=== PATIENT | female | born 1970 | race Caucasian/White ===

== ENCOUNTER 2017-11-16 14:44 | Observation (INO) | payer SELFPAY ==
[~2017-11-16] VITALS: Ht 157.5 cm; Wt 92.7 kg
--- NOTE | 2017-11-16 15:01 | ED Chest Pain ---
General Chief Complaint: Chest Pain Stated Complaint: CHEST PAIN Source: patient, EMS Exam Limitations: no limitations History of Present Illness Date Seen by Provider: Nov 16, 2017 Time Seen by Provider: 15:00 Initial Comments To ER per EMS from [facility] with reports of chest pain. This began at 1 PM while at rest. She did have associated sweating and pain on the left arm. She has no known personal history of heart disease. She does smoke 1 pack of cigarettes per day. She is not diabetic. She states that her father had a heart attack in his early 30s and her sister had one in her early 40s. She was given 324 mg of aspirin at the [facility]. Her initial pain was 5 out of 10 which was taken down to a 0 after the administration of one nitroglycerin. At this time she is pain-free. Timing/Duration: 1-3 hours Severity/Quality: moderate Radiation: arms Activities at Onset: none Prior CP/Workup: no prior chest pain ASA po PULP DRIER: Yes NTG SL PULP DRIER: Yes Associated Symptoms: No nausea/vomiting Allergies and Home Medications Allergies Coded Allergies: No Known Drug Allergies (Unverified , 11/16/17) Patient Home Medication List Home Medication List Reviewed: Yes Review of Systems Review of Systems Constitutional: see HPI EENTM: No Symptoms Reported Respiratory: No Symptoms Reported; Denies Shortness of Air, Denies SOA With Exertion, Denies SOA at Rest Cardiovascular: See HPI, Chest Pain Gastrointestinal: No Symptoms Reported Genitourinary: No Symptoms Reported Musculoskeletal: no symptoms reported Skin: no symptoms reported Psychiatric/Neurological: No Symptoms Reported Endocrine: No Symptoms Reported Physical Exam Vital Signs Vital Signs - First Documented 11/16/17 14:46 Temp 98.9 Pulse 82 Resp 18 B/P (MAP) 134/72 (92) Pulse Ox 98 O2 Delivery Room Air Capillary Refill : Height, Weight, BMI Height: '" Weight: lbs. oz. kg; BMI Method: General Appearance: No Apparent Distress, WD/WN HEENT: PERRL/EOMI, TMs Normal Neck: Full Range of Motion, Normal Inspection Respiratory: Lungs Clear, Normal Breath Sounds, No Accessory Muscle Use, No Respiratory Distress Cardiovascular: Regular Rate, Rhythm, No Murmur, Normal Peripheral Pulses Gastrointestinal: Non Tender, Soft Extremity: Normal Capillary Refill, Normal Inspection Neurologic/Psychiatric: Alert, Oriented x3 Skin: Normal Color, Warm/Dry Progress/Results/Core Measures Results/Orders Lab Results Laboratory Tests Test 11/16/17 14:56 Range/Units White Blood Count 7.1 4.3-11.0 10^3/uL Red Blood Count 4.45 4.35-5.85 10^6/uL Hemoglobin 12.0 11.5-16.0 G/DL Hematocrit 37 35-52 % Mean Corpuscular Volume 83 80-99 FL Mean Corpuscular Hemoglobin 27 25-34 PG Mean Corpuscular Hemoglobin Concent 33 32-36 G/DL Red Cell Distribution Width 16.9 H 10.0-14.5 % Platelet Count 313 130-400 10^3/uL Mean Platelet Volume 10.0 7.4-10.4 FL Neutrophils (%) (Auto) 63 42-75 % Lymphocytes (%) (Auto) 25 12-44 % Monocytes (%) (Auto) 9 0-12 % Eosinophils (%) (Auto) 3 0-10 % Basophils (%) (Auto) 0 0-10 % Neutrophils # (Auto) 4.5 1.8-7.8 X 10^3 Lymphocytes # (Auto) 1.8 1.0-4.0 X 10^3 Monocytes # (Auto) 0.6 0.0-1.0 X 10^3 Eosinophils # (Auto) 0.2 0.0-0.3 10^3/uL Basophils # (Auto) 0.0 0.0-0.1 10^3/uL My Orders Orders - LANG BELCHER APRN Cbc With Automated Diff (11/16/17 14:54) Magnesium (11/16/17 14:54) Chest 1 View, Ap/Pa Only (11/16/17 14:54) Ekg Tracing (11/16/17 14:54) Cardiac Profile 1 (11/16/17 14:54) Comprehensive Metabolic Panel (11/16/17 14:54) Myoglobin Serum (11/16/17 14:54) Protime With Inr (11/16/17 14:54) Partial Thromboplastin Time (11/16/17 14:54) O2 (11/16/17 14:54) Monitor-Rhythm Ecg Trace Only (11/16/17 14:54) Lipid Panel (11/17/17 06:00) Saline Lock/Iv-Start (11/16/17 14:54) Lipase (11/16/17 14:54) BNP (11/16/17 14:54) Fibrin Degradation Products (11/16/17 14:54) Vital Signs/I&O 11/16/17 14:46 Temp 98.9 Pulse 82 Resp 18 B/P (MAP) 134/72 (92) Pulse Ox 98 O2 Delivery Room Air Diagnostic Imaging Diagonstic Imaging: Xray Plain Films/CT/US/NM/MRI: chest Comments NAME: [facility] REC#: [id number] PT STATUS: REG ER : 1970 PHYSICIAN: LANG BELCHER APRN ADMIT DATE: 11/16/17/ER Draft Date of Exam:11/16/17 CHEST 1 VIEW, AP/PA ONLY INDICATION: Chest pain. Portable chest 3:05 p.m. Heart size and pulmonary vascularity are normal. Lungs are clear. There are no effusions or pneumothoraces. IMPRESSION: Negative chest. Dictated on workstation # [id number] Dict: 11/16/17 1525 Trans: 11/16/17 1532 [facility] [id number] Interpreted by: PARRISH PEREZ MD Electronically signed by: Departure Impression Primary Impression: Chest pain Disposition: ADMITTED INPATIENT Condition: Stable Admissions Decision to Admit Reason: Admit from ER (General) Decision to Admit/Date: Nov 16, 2017 Time/Decision to Admit Time: 15:01 Departure-Patient Inst. Referrals: UNKNOWN (PCP) Primary Care Physician LANG BELCHER APRN Nov 16, 2017 15:01
[2017-11-16 15:23] LABS: BASOPHILS % (AUTO) 0 % (0-10); EOSINOPHILS # (AUTO) 0.2 10^3/uL (0.0-0.3); EOSINOPHILS % (AUTO) 3 % (0-10); HEMATOCRIT 37 % (35-52); LYMPHOCYTES # (AUTO) 1.8 X 10^3 (1.0-4.0); LYMPHOCYTES % (AUTO) 25 % (12-44); MEAN CORPUSCULAR HEMOGLOBIN 27 PG (25-34); MEAN CORPUSCULAR HGB CONC 33 G/DL (32-36); MEAN CORPUSCULAR VOLUME 83 FL (80-99); MONOCYTES # (AUTO) 0.6 X 10^3 (0.0-1.0); MONOCYTES % (AUTO) 9 % (0-12); NEUTROPHILS # (AUTO) 4.5 X 10^3 (1.8-7.8); NEUTROPHILS % (AUTO) 63 % (42-75); PLATELET COUNT 313 10^3/uL (130-400); RED BLOOD COUNT 4.45 10^6/uL (4.35-5.85); RED CELL DISTRIBUTION WIDTH 16.9 % (10.0-14.5); WHITE BLOOD COUNT 7.1 10^3/uL (4.3-11.0)
--- NOTE | 2017-11-16 15:33 | Diagnostic Imaging Report ---
INDICATION: Chest pain. Portable chest 3:05 p.m. Heart size and pulmonary vascularity are normal. Lungs are clear. There are no effusions or pneumothoraces. IMPRESSION: Negative chest. Dictated by: Dictated on workstation # [id number]
[2017-11-16 15:42] LABS: INR 0.9 (0.8-1.4); PROTHROMBIN TIME PATIENT 12.2 SEC (12.2-14.7)
[2017-11-16 15:47] LABS: ALANINE AMINOTRANSFERASE 20 U/L (0-55); ALBUMIN 4.3 GM/DL (3.2-4.5); ALKALINE PHOSPHATASE 92 U/L (40-136); BILIRUBIN,TOTAL 0.2 MG/DL (0.1-1.0); BUN/CREATININE RATIO 10; CALCIUM 9.6 MG/DL (8.5-10.1); CARBON DIOXIDE 24 MMOL/L (21-32); CHLORIDE 106 MMOL/L (98-107); CREATININE SERUM 0.78 MG/DL (0.60-1.30); GFR ESTIMATED > 60; GLUCOSE 102 MG/DL (70-105); LIPASE 31 U/L (8-78); MAGNESIUM 2.2 MG/DL (1.8-2.4); POTASSIUM 3.8 MMOL/L (3.6-5.0); SODIUM 139 MMOL/L (135-145); TOTAL PROTEIN 7.4 GM/DL (6.4-8.2)
[2017-11-16 15:57] LABS: MYOGLOBIN SERUM 23.1 NG/ML (10.0-92.0)
[2017-11-16 17:14] VITALS: BP 119/70
[2017-11-16] MEDS ORDERED: NITROGLYCERIN 0.4 MG SL TABS BTL 25'S SL PRN (17:30)
--- NOTE | 2017-11-16 17:37 | History & Physical-Hospitalist ---
DORYS BELCHER MEDICAL STUDENT 11/16/17 1736: History of Present Illness HPI/Chief Complaint Chest pain Source: patient Exam Limitations: no limitations Date Seen 11/16/17 Time Seen by Provider: 16:45 Attending Physician Dary Bailey DO [facility] Referring Physician Date of Admission Nov 16, 2017 at 15:39 Home Medications & Allergies Home Medications Reviewed patient Home Medication Reconciliation performed by pharmacy medication reconciliations registered pharmacy technician and/or nursing. Patients Allergies have been reviewed. 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) Alcohol Use: Past History (Last drink in September) Recreational Drug Use: No Smoking Status: Current Everyday Smoker Type Used: Cigarettes (27 py history) Recent Foreign Travel: No Contact w/other who traveled: No Recent Hopitalizations: No Recent Infectious Disease Expo: No Immunizations Up To Date Tetanus Booster (TDap): Unknown Pediatric: Yes Seasonal Allergies Seasonal Allergies: No Past Medical History Surgeries: Section Cardiac: High Cholesterol Psychosocial: Anxiety History of Blood Disorders: No Family History CAD Under 55 Years Old (Sister of [place] at) Sister of [place] at 34 Physical Exam Physical Exam Vital Signs Vital Signs - First Documented 11/16/17 14:46 Temp 98.9 Pulse 82 Resp 18 B/P (MAP) 134/72 (92) Pulse Ox 98 O2 Delivery Room Air Capillary Refill : Less Than 3 Seconds Height, Weight, BMI Height: 5'7.00" Weight: 200lbs. oz. 90.808431rt; BMI Method:Stated Results Results/Procedures Labs Laboratory Tests 11/16/17 14:56 Patient resulted labs reviewed. Clinical Quality Measures AMI/AHF: ASA po Prior to arrival: Yes DARY BAILEY DO 11/17/17 1142: DORYS BELCHER MEDICAL STUDENT Nov 16, 2017 17:36 DARY BAILEY DO Nov 17, 2017 11:42
--- NOTE | 2017-11-16 17:47 | Short Stay Summary-Hospitalist ---
DORYS BELCHER MEDICAL STUDENT 11/16/17 1747: History of Present Illness HPI/Chief Complaint CC: Chest pain HPI: 46 year old female with history of smoking, hyperlipidemia, and strong cardiac family history presented via EMS from [facility] following one hour of chest pain. This began while she was sitting down. She felt chest tightness that radiated down left flank and left arm as well, which felt tingly and weak. She rated the pain as a 5/10. Never had any pain like this before. The pain was associated with nausea and diaphoresis. At [facility], she was given ASA 325 and one nitroglycerin, which almost immediately resolved the pain. Pts sister at 34 of DC and father had DC in 40s. After her sister passed in 1999, she had and echo that she reports was normal. Source: patient Exam Limitations: no limitations Date Seen 11/16/17 Time Seen by Provider: 16:45 Attending Physician Dary Bailey DO [facility] Referring Physician Date of Admission Nov 16, 2017 at 15:39 Home Medications & Allergies Home Medications Reviewed patient Home Medication Reconciliation performed by pharmacy medication reconciliations dentures lab technician and/or nursing. Patients Allergies have been reviewed. 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) Alcohol Use: Past History (Last drink in September) Recreational Drug Use: No Smoking Status: Current Everyday Smoker Type Used: Cigarettes (27 py history) Recent Foreign Travel: No Contact w/other who traveled: No Recent Hopitalizations: Yes (June 2017 was intubated for alcohol intoxication) Recent Infectious Disease Expo: No Immunizations Up To Date Tetanus Booster (TDap): Unknown Pediatric: Yes Seasonal Allergies Seasonal Allergies: No Past Medical History Surgeries: Section Cardiac: High Cholesterol Psychosocial: Anxiety History of Blood Disorders: No Family History CAD Under 55 Years Old (Sister of [place] at 34, Father had DC in 40s), CVA (2 x in Mother) Sister of [place] at 34 Review of Systems Constitutional: No chills; diaphoresis; No fever; weight gain EENTM: nose congestion; No throat pain Respiratory: cough (chronic ), dyspnea on exertion (chest pain after walking) Cardiovascular: chest pain, edema Gastrointestinal: No abdominal pain, No constipation; diarrhea, nausea Genitourinary: No dysuria; frequency Physical Exam Physical Exam Vital Signs Vital Signs - First Documented 11/16/17 14:46 Temp 98.9 Pulse 82 Resp 18 B/P (MAP) 134/72 (92) Pulse Ox 98 O2 Delivery Room Air Capillary Refill : Less Than 3 Seconds Height, Weight, BMI Height: 5'7.00" Weight: 200lbs. oz. 90.219186wd; BMI Method:Stated General Appearance: No Apparent Distress, WD/WN HEENT: Pharynx Normal, Moist Mucous Membranes Neck: Normal Inspection, Non Tender; No Lymphadenopathy (L), No Lymphadenopathy (R) Respiratory: Chest Non Tender, Lungs Clear, Normal Breath Sounds, No Accessory Muscle Use, No Respiratory Distress Cardiovascular: Regular Rate, Rhythm, No Edema, No Gallop, No Murmur, Normal Peripheral Pulses Gastrointestinal: Normal Bowel Sounds, Non Tender, Soft Extremity: No Pedal Edema Neurologic/Psychiatric: Alert, Oriented x3 Skin: Normal Color, Warm/Dry Results Results/Procedures Labs Laboratory Tests 11/16/17 14:56 Patient resulted labs reviewed. Short Stay Diagnosis Discharge Diagnosis-Short Stay Admission Diagnosis Angina Final Discharge Diagnosis Angina Conclusion Plan 46 year old female with a history of hyperlipidemia, smoking, and strong family history admitted for evaluation of angina. Angina -ASA 325 mg and 1 tab nitroglycerin at clinic -EKG and troponins negative -Stress test to be performed tomorrow -Will consider resuming a statin pending lipid panel Dispo: Likely to discharge tomorrow after stress test to follow up outpatient. Diagnosis/Problems Diagnosis/Problems (1) Smoking history Status: Chronic (2) Mixed hyperlipidemia Status: Chronic (3) Chest pain Status: Acute Clinical Quality Measures AMI/AHF: ASA po Prior to arrival: Yes DARY BAILEY DO 11/17/17 1144: History of Present Illness HPI/Chief Complaint Patient just came back from [facility] and will await results. 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) Smoking Status: Current Everyday Smoker Type Used: Cigarettes (27 py history) Past Medical History Surgeries: Section Cardiac: High Cholesterol Psychosocial: Anxiety Family History CAD Under 55 Years Old (Sister of [place] at 34, Father had DC in 40s), CVA (2 x in Mother) Review of Systems Constitutional: see HPI EENTM: no symptoms reported Respiratory: no symptoms reported Cardiovascular: chest pain Gastrointestinal: no symptoms reported Genitourinary: no symptoms reported Musculoskeletal: no symptoms reported Skin: no symptoms reported Psychiatric/Neurological: No Symptoms Reported All Other Systems Reviewed Negative Unless Noted: Yes Physical Exam Physical Exam General Appearance: No Apparent Distress, WD/WN Eyes: Bilateral Eye Normal Inspection, Bilateral Eye PERRL HEENT: PERRL/EOMI, TMs Normal, Normal ENT Inspection, Pharynx Normal Neck: Full Range of Motion, Normal Inspection, Non Tender, Supple, Carotid Bruit Respiratory: Chest Non Tender, Lungs Clear, Normal Breath Sounds, No Accessory Muscle Use, No Respiratory Distress Cardiovascular: Regular Rate, Rhythm, No Edema, No Gallop, No JVD, No Murmur, Normal Peripheral Pulses Gastrointestinal: Normal Bowel Sounds, No Organomegaly, No Pulsatile Mass, Non Tender, Soft Back: Normal Inspection, No CVA Tenderness, No Vertebral Tenderness Extremity: Normal Capillary Refill, Normal Inspection, Normal Range of Motion, Non Tender, No Calf Tenderness, No Pedal Edema Neurologic/Psychiatric: Alert, Oriented x3, No Motor/Sensory Deficits, Normal Mood/Affect Skin: Normal Color, Warm/Dry Lymphatic: No Adenopathy Short Stay Diagnosis Discharge Diagnosis-Short Stay Admission Diagnosis Chest pain HLP Final Discharge Diagnosis Chest pain HLP Conclusion Plan Await EST results Diagnosis/Problems Diagnosis/Problems (1) Chest pain Status: Acute (2) Smoking history Status: Chronic (3) Mixed hyperlipidemia Status: Chronic DORYS BELCHER MEDICAL STUDENT Nov 16, 2017 17:47 DARY BAILEY DO Nov 17, 2017 11:44
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
[2017-11-16] MEDS: ASPIRIN 81 MG CHEW (CHILDREN'S ASA) PO SCH (18:24)
[2017-11-16] MEDS ORDERED: FLU QUADRIvalent (5+ YOA) 2018-2019 (AFLURIA) 0.5 ML IM ONE (19:00)
[2017-11-16 19:49] VITALS: BP 106/58
[2017-11-16] MEDS: NICOTINE 21 MG (NICODERM) PATCH TD SCH (20:00)
[2017-11-17] VITALS: BP 101/56
[2017-11-17 03:47] LABS: CHOLESTEROL 485 MG/DL (< 200); HDL CHOLESTEROL 47 MG/DL (40-60); TRIGLYCERIDES 162 MG/DL (<150); VLDL CHOLESTEROL 32 MG/DL (5-40)
[2017-11-17 04:00] VITALS: BP 104/56
[2017-11-17] MEDS: ASPIRIN 81 MG CHEW (CHILDREN'S ASA) PO SCH (07:51)
[2017-11-17 08:00] VITALS: BP 92/46
[2017-11-17] MEDS: NICOTINE 21 MG (NICODERM) PATCH TD SCH (08:15)
--- NOTE | 2017-11-17 08:46 | Progress Note-Hospitalist ---
DORYS BELCHER MEDICAL STUDENT 11/17/17 0846: Subjective HPI/CC On Admission Date Seen by Provider: Nov 17, 2017 Time Seen by Provider: 08:00 CC: Chest pain HPI: 46 year old female with history of smoking, hyperlipidemia, and strong cardiac family history presented via EMS from [facility] following one hour of chest pain. This began while she was sitting down. She felt chest tightness that radiated down left flank and left arm as well, which felt tingly and weak. She rated the pain as a 5/10. Never had any pain like this before. The pain was associated with nausea and diaphoresis. At [facility], she was given ASA 325 and one nitroglycerin, which almost immediately resolved the pain. Pts sister at 34 of KS and father had KS in 40s. After her sister passed in 1999, she had and echo that she reports was normal. Subjective/Events-last exam Pt had no acute events overnight. She did not sleep well. She has had no more chest pain. She is having regular BMs and urinating without difficulty. Pt aware of plan for stress test. Focused Exam Respiratory: Lungs Clear, Normal Breath Sounds, No Accessory Muscle Use, No Respiratory Distress Cardiovascular: Regular Rate, Rhythm, No Edema, No Murmur Skin: normal color, warm/dry Objective Exam Vital Signs Vital Signs Date Time Temp Pulse Resp B/P (MAP) Pulse Ox O2 Delivery O2 Flow Rate FiO2 11/17/17 07:00 70 11/17/17 04:00 97.3 20 104/56 (72) 96 Room Air Capillary Refill : Less Than 3 Seconds General Appearance: No Apparent Distress, WD/WN Results/Procedures Lab Laboratory Tests 11/16/17 14:56 Patient resulted labs reviewed. Assessment/Plan Assessment and Plan Assess & Plan/Chief Complaint 46 year old female with a history of hyperlipidemia, smoking, and strong family history admitted for evaluation of angina. Angina -ASA 325 mg and 1 tab nitroglycerin at clinic with resolution of pain -EKG with Q waves in inferior leads and troponins negative -Stress test to be performed this morning. -LDL of 417 and total of 487. Will discuss high intensity statin and Ezetimibe. Dispo: Likely to discharge today after stress test to follow up outpatient. Diagnosis/Problems Diagnosis/Problems (1) Smoking history Status: Chronic (2) Mixed hyperlipidemia Status: Chronic (3) Chest pain Status: Acute Clinical Quality Measures AMI/AHF: ASA po Prior to arrival: Yes DVT/VTE Risk/Contraindication: Risk Factor Score Per Nursin RFS Level Per Nursing on Admit: 1=Low/No VTE PPX ESPINOZA CHUNG DO 11/18/17 0815: Subjective Subjective/Events-last exam EST pending at time of my interview and exam Severe HLP and + FH requires risk stratification Objective Exam General Appearance: No Apparent Distress, WD/WN Respiratory: Chest Non Tender, Lungs Clear, Normal Breath Sounds, No Accessory Muscle Use, No Respiratory Distress Cardiovascular: Regular Rate, Rhythm, No Edema, No Gallop, No JVD, No Murmur, Normal Peripheral Pulses DORYS BELCHER MEDICAL STUDENT Nov 17, 2017 08:46 ESPINOZA CHUNG DO Nov 18, 2017 08:15
[2017-11-17] MEDS ORDERED: REGADENOSON 0.4 MG/5 ML SYR (LEXISCAN) IV ONE ×2 (09:00→10:24)
[2017-11-17] MEDS: CATHETER FLUSH 10 ML SYR IV PRN ×2 (09:36→10:31)
--- NOTE | 2017-11-17 10:18 | Cardiology Progress Note ---
Cardiology SOAP Progress Note Subjective: No further chest pain. Objective: I&O/Vital Signs Weight (Pounds): 204 Weight (Ounces): 6.0 Weight (Calculated Kilograms): 92.491236 Constitutional: appears stated age, AAO x 3; No apparent distress; well- developed, well-nourished Respiratory: No accessory muscle use, No respiratory distress, No chest tender , No chest expansion is symmetric; chest is bilaterally symmetric; No lungs clear to percussion; lungs clear to auscultation; No crackles, No rhonchi, No rales, No stridor, No wheezing, No pleural rub, No other Cardiovascular: regular rate-rhythm; No irregularly irregular, No extra beats, No parasternal heave is noted, No JVD, No edema, No bradycardia, No tachycardia , No point of maximal impulse, No cardiac thrills are palpable; S1 and S2; No gallop/S3, No gallop/S4, No diastolic murmur, No systolic murmur, No friction rub, No click, No other Gastrointestional: No tender, No soft, No round, No distended, No pulsatile mass, No organomegaly, No guarding, No rebound, No tenderness, No hernia, No mass, No audible bowel sounds, No abnormal bowel sounds, No abdominal bruits, No spleenomegaly, No other Extremities: No normal range of motion, No non-tender, No normal inspection, No pedal edema, No calf tenderness, No normal capillary refill, No pelvis stable , No calf tenderness, No inflammation, No pedal edema, No slow capillary refill , No swelling, No other, No abrasion, No clubbing, No cyanosis, No ecchymosis, No laceration, No no lower extremity edema bilateral, No significant edema, No tenderness, No wound Neurologic/Psychiatric: no motor/sensory deficits, alert, normal mood/affect, oriented x 3, power is 5/5 both on sides Skin: normal color, warm/dry Results/Procedures: Labs A/P: Assessment/Dx: Prolonged episode of chest pain, Active smoking, Familial Hyperlipidemia Plan: Prolonged episode of chest pain with serial negative troponin. EKG did not reveal any acute ST-T wave abnormality, however Q waves were noted in the inferior and anterior leads. Patient has significant history of premature CAD in the family, active smoking and hyperlipidemia not on treatment. Echocardiogram showed normal LV function with no wall motion abnormalities, no valvular heart disease. Nuclear stress test today. If abnormal will strongly consider coronary angiography. This was discussed with the patient. Active smoking, strongly recommended to quit. Hyperlipidemia, severely elevated total cholesterol and LDL. Very likely familial hyperlipidemia considering premature CAD in the family as well. Did not see any tendon xanthomas or xanthelasma on examination. High-dose Lipitor started. If in 6 weeks, total cholesterol/LDL is not on target, will consider PCSK9 Inhibitors. Thank you for your consultation. Please call me if you have any questions. Lucas Melvin MD, FACP, FACC, FSCAI, FHRS, CCDS Interventional Cardiology Cardiac Electrophysiology Vascular Medicine and Endovascular Interventions Clinical Quality Measures AMI/AHF: ASA po Prior to arrival: Yes Genna MELVIN MD Nov 17, 2017 10:17
[2017-11-17 10:30] VITALS: BP 110/67
[2017-11-17] MEDS ORDERED: CLOP75TA69 PO ×2 (12:39→12:48)
[2017-11-17] MEDS ORDERED: ATOR80TA76 PO (12:43)
[2017-11-17] MEDS ORDERED: HYDR25CA PO (13:27)
[2017-11-17] MEDS ORDERED: VILA20TA PO (13:27)
[2017-11-17] MEDS ORDERED: MIRT15TA PO (13:27)
[2017-11-17] MEDS ORDERED: GABA-488 PO (13:27)
[2017-11-17] MEDS ORDERED: CLOPIDOGREL 300 MG (PLAVIX) TABLET PO NR (13:44)
[2017-11-17] MEDS ORDERED: ATORVASTATIN 80 MG (LIPITOR) TABLET ONE (13:51)
[2017-11-17] MEDS ORDERED: ATORVASTATIN 80 MG (LIPITOR) TABLET PO SCH (21:00)
[2017-11-18] MEDS ORDERED: NICOTINE PATCH REMOVAL TP SCH (08:59)
[2017-11-18 16:23] VITALS: BP 112/72
--- NOTE | 2017-11-18 16:23 | Cardiology Stress Test Report ---
Stress Test Report Type of NM Stress Test: Test Type: LEXISCAN 0.4MG/5ML Date of Procedure/Referring: Date of Procedure: Nov 17, 2017 PCP Dary Bailey DO Admitting Physician [place] Indications: Chest pain Baseline Heart Rate: 65 Baseline Blood Pressure: Blood Pressure Systolic: 112 Blood Pressure Diastolic: 72 Baseline EKG: Baseline EKG: Sinus rhythm Summary & Conclusion: Summary: The patient was brought to the stress lab after informed consent was taken. Stress test was performed according to the Lexiscan protocol. 0.4 mg of IV Lexiscan was given. Low-grade exercise was performed. Baseline EKG showed sinus rhythm at 65 BPM. Initial blood pressure was 112/72 mmHg. Maximum heart rate was 122 bpm and blood pressure 123/83 mmHg. Patient did not have any chest pain, arrhythmias or ST segment changes during the stress test. 10.70 mCi of Myoview were given for rest imaging and 32.7 mCi of Myoview given for stress imaging. Transient ischemic dilatation score 1.14 , EF 42 percent. Normal wall motion. Moderate size anterior-apical reversible defect. Small Inferior-lateral reversible defect. Conclusion: Pharmacological stress test was negative for ischemia. Low LV function with no wall motion abnormalities. Evidence of likely anterior-apical and inferior-lateral ischemia - Coronary angiography is recommended. Genna FRIAS MD Nov 18, 2017 16:23
[2017-11-19] MEDS ORDERED: TICA90TA PO (22:08)
[2017-11-19] MEDS ORDERED: ASPI-999 PO (22:08)
[2017-11-19] MEDS ORDERED: METO-351 PO (22:09)
[2017-11-19] MEDS ORDERED: LISI-556 PO (22:10)
== END 2017-11-17 11:48 | disposition home or self-care (01) ==
LOC: ER 14:45 → 4TH 15:39 → UNDOADMOB 15:39 → 4TH 17:30 → UNDODISOB 11-17 14:03
PROVIDERS: ADMIT Internal Medicine; ATTEND Internal Medicine
DX: I20.9 Angina pectoris, unspecified (principal); R07.9 Chest pain, unspecified; F17.210 Nicotine dependence, cigarettes, uncomplicated; E78.2 Mixed hyperlipidemia; Z82.49 Family history of ischemic heart disease and other diseases of the circulatory system; E78.00 Pure hypercholesterolemia, unspecified; F41.9 Anxiety disorder, unspecified
CPT/HCPCS: 36415; 71045; 78452; 80053; 80061; 83690; 83735; 83874; 83880; 84484; 85025; 85379; 85610; 85730; 93005; 93017; 93041; 93306; G0378

== ENCOUNTER 2017-11-19 08:21 | Day surgery (SDC) | payer SELFPAY ==
[~2017-11-19] VITALS: Ht 157.5 cm; Wt 90.7 kg
[2017-11-19] VITALS (19 sets, daily range): BP systolic 100–137; BP diastolic 52–101
[~2017-11-19 08:21] MED LIST: ATOR80TA76 PO; CLOP75TA69 PO; GABA-488 PO; HYDR25CA PO; MIRT15TA PO; VILA20TA PO
[2017-11-19] MEDS ORDERED: NS IV 1000 ML 1,000 ML ONE (08:24)
[2017-11-19] MEDS ORDERED: LIDOCAINE 1% INJ 20 ML 20 ML VIAL ONE (08:24)
[2017-11-19] MEDS ORDERED: HEParin (CATH LAB) 2,000 ML IV ONE (08:25)
[2017-11-19] MEDS ORDERED: NS IV 1000 ML 1,000 ML IV SCH (08:30)
[2017-11-19] MEDS ORDERED: ATOR80TA76 PO (08:49)
[2017-11-19] MEDS ORDERED: CLOP75TA69 PO (08:49)
[2017-11-19 09:03] LABS: MEAN PLATELET VOLUME 9.9 FL (7.4-10.4); RED BLOOD COUNT 4.33 10^6/uL (4.35-5.85); RED CELL DISTRIBUTION WIDTH 16.7 % (10.0-14.5); WHITE BLOOD COUNT 6.5 10^3/uL (4.3-11.0)
[2017-11-19 09:15] LABS: PROTHROMBIN TIME PATIENT 12.8 SEC (12.2-14.7)
[2017-11-19] MEDS ORDERED: FLU QUADRIvalent (5+ YOA) 2018-2019 (AFLURIA) 0.5 ML IM ONE (09:15)
[2017-11-19 09:23] LABS: ALANINE AMINOTRANSFERASE 31 U/L (0-55); ALBUMIN 4.2 GM/DL (3.2-4.5); ALKALINE PHOSPHATASE 90 U/L (40-136); BILIRUBIN,TOTAL 0.3 MG/DL (0.1-1.0); BUN/CREATININE RATIO 8; CALCIUM 9.3 MG/DL (8.5-10.1); CARBON DIOXIDE 22 MMOL/L (21-32); CHLORIDE 110 MMOL/L (98-107); CREATININE SERUM 0.78 MG/DL (0.60-1.30); GFR ESTIMATED > 60; GLUCOSE 94 MG/DL (70-105); POTASSIUM 4.2 MMOL/L (3.6-5.0); SODIUM 140 MMOL/L (135-145); TOTAL PROTEIN 7.3 GM/DL (6.4-8.2)
[2017-11-19] MEDS ORDERED: VERAPAMIL 5 MG/2 ML (CALAN) VIAL IV ONE (11:03)
[2017-11-19] MEDS ORDERED: fentaNYL INJECTION 100 MCG/2 ML AMP ONE (11:03)
[2017-11-19] MEDS ORDERED: MIDAZOLAM 5 MG/5 ML (VERSED) VIAL ONE (11:03)
[2017-11-19] MEDS ORDERED: NITRO DRIP 25000 MCG/D5W 250 ML IV ONE (11:04)
[2017-11-19] MEDS ORDERED: HEParin 1000 UNIT/ML (10ML VIAL) FOR BOLUS ONE ×2 (11:04→12:51)
--- NOTE | 2017-11-19 11:17 | Cardiac Procedure Note-CS/ASA ---
Pre-Procedure Note Pre-Op Procedure Note H&P Reviewed The H&P was reviewed, patient examined and no changes noted. Date H&P Reviewed: Nov 19, 2017 Time H&P Reviewed: 11:17 Conscious Sedation Pre-Proced Time Reviewed: 11:17 ASA Class: 3 Airway Mallampati Classification: ([place] appropriate class) I. II. III, IV Lungs Heart ASA score ASA 1: a normal healthy patient ASA 2: a patient with a mild systemic disease (mid diabetes, controlled hypertension, obesity ASA 3: a patient with a severe systemic disease that limits activity (angina , COPD, prior Myocardial infarction) ASA 4: a patient with an incapacitating disease that is a constant threat to life (CHF, renal failure) ASA 5: a moribund patient not expected to survive 24 hrs. (ruptured aneurysm) ASA 6: a declared brain patient whose organs are being harvested. For emergent operations, add the letter E after the classification Grade 1 Sedation Plan: Analgesia, Amnesia, Plan communicated to team members, Discussed options with patient/fam, Discussed risks with patient/fam Note The patient is an appropriate candidate to undergo the planned procedure, sedation, and anesthesia. The patient immediately re-assessed prior to indication. Genna FRIAS MD Nov 19, 2017 11:17 am
[2017-11-19] MEDS ORDERED: TICAGRELOR 90 MG TABLET (BRILINTA) PO ONE (11:44)
--- NOTE | 2017-11-19 13:24 | Coronary Angiography & PCI ---
Coronary Angiography & PCI DATE OF PROCEDURE: 11/19/17 INDICATION: Prolonged episode of chest pain, abnormal nuclear stress test. PREOPERATIVE DIAGNOSIS: Prolonged episode of chest pain, abnormal nuclear stress test. POSTOPERATIVE DIAGNOSIS: Severe three-vessel coronary disease, status post successful PCI to left circumflex artery and mid LAD. HISTORY: This is a 46-year-old lady who presented with prolonged episode of chest pain with negative serial troponin. She has history of active smoking, significant family history of premature CAD and familial hyperlipidemia. Nuclear stress test was performed which showed evidence of reversible ischemia. Therefore, the patient was scheduled for coronary angiography. PROCEDURES PERFORMED: 1.Coronary angiography. 2.Left heart catheterization. 3.PCI to the mid LAD with drug-eluting stent. 4. PCI to the mid left circumflex artery with drug-eluting stent. COMPLICATIONS: None. SPECIMENS: None. ESTIMATED BLOOD LOSS: 10 mL ANESTHESIA: Conscious sedation ANTICOAGULATION: IV heparin CONTRAST: 330 cc. FLUOROSCOPY: 41.3 minutes. FLOUROSCOPY DOSE: 2852 mgy. PROCEDURE DETAILS: The patient is a 46 female and was brought to the labor relations consultant after informed consent was taken. All the risks and complications were explained in detail; this included the risk of bleeding, vascular damage, stroke , MO and even . The patient was draped and prepped in the usual sterile fashion. Access was gained in the right radial artery with a 6 Polish sheath. Coronary angiography and left heart catheterization was performed with the [place] catheter. FINDINGS: 1.Left main: Patent. 2.LAD: Severe mid LAD stenosis. Stenosis severity 80 percent. Very tortuous vessel. Diffuse mild distal disease is noted. 3.Left circumflex artery: Severe mid left circumflex artery stenosis. Stenosis severity 80 percent. 4.RCA: Proximal total occlusion with good collaterals supplied from the left coronary system. 5.Left heart catheterization: LV pressure 86/10 mmHg. LVEDP 14 mmHg. Aortic pressure 123/78 mmHg. Normal LV function with no wall motion abnormalities. No gradient across the aortic valve. RECOMMENDATIONS: 1. PCI to mid left circumflex artery is recommended. 2. PCI to the mid LAD is recommended. INTERVENTION DETAILS: EBU 3.5 guide catheter, BMW guidewire, IV heparin for anticoagulation. We performed 3 ACTs. The first ACT was 91, second ACT was 274 and a third ACT was 261. Patient was given Brilinta 180 mg by mouth before starting. The lesion in the left circumflex artery was crossed with a BMW guidewire. Predilatation was performed with an emergent 3.0X 15 balloon at nominal pressures for 13 seconds. We then placed a Xience Columba 3X 28 mm drug eluting stent. The stent was deployed at 16 chong for 32 seconds. The wire was taken out and no residual stenosis were noted. Excellent results. We used the same BMW wire and with difficulty crossed the mid LAD lesion. It was difficult due to significant tortuosity. The BMW wire was placed in the distal LAD. We then took a Xience Columba 2.5X 18mm but were not able to cross the lesion. We took the stent out and and used a whisper extra-support wire as a obdulia wire. We were still not able to cross the lesion with the stent due to significant tortuosity and high-grade stenosis. We then took emerge 2.5 X12 balloon and performed 2 inflations at 8 chong. The balloon was taken out. Whisper wire was also taken out. We were still not able to cross with the stent. Therefore we used a guide liner for extra-support and we were able to cross the lesion with the stent. The stent was deployed at 18 chong for 45 seconds. No residual stenosis and excellent results were seen. The wire was taken out. There were no vascular complications. CONCLUSIONS: 1. Severe three-vessel CAD, status post successful PCI with drug-eluting stent to the mid left circumflex artery and mid LAD. 2. Proximal SEED CLEANER of the RCA with good collaterals from the left coronary system. It may require SEED CLEANER PCI in the future if required. 3. Normal LV function. 4. Will give aggressive hydration due to high contrast load. Check BUN/ creatinine the morning. 5. Dual antiplatelet therapy long-term. Lucas Melvin MD, FACP, FACC, [facility] Interventional Cardiology Genna MELVIN MD Nov 19, 2017 1:24 pm
[2017-11-19] MEDS ORDERED: PATIENT MAY USE OWN MEDS, ALL PO SCH (13:30)
[2017-11-19] MEDS: NS IV 1000 ML 1,000 ML IV SCH (14:30)
[2017-11-19] MEDS: NICOTINE 21 MG (NICODERM) PATCH TD SCH (16:10)
[2017-11-19] MEDS ORDERED: ATORVASTATIN 40 MG (LIPITOR) TABLET PO SCH (21:00)
[2017-11-19] MEDS ORDERED: ASPI-999 PO (22:08)
[2017-11-19] MEDS ORDERED: TICA90TA PO (22:08)
[2017-11-19] MEDS ORDERED: METO-351 PO (22:09)
[2017-11-19] MEDS ORDERED: LISI-556 PO (22:10)
--- NOTE | 2017-11-19 22:11 | Discharge Inst-Post CATH ---
Discharge Inst-CATH Post Cardiac Cath D/C Inst Follow Up/Plan Dr Melvin in two to three weeks. CARDIAC CATH DISCHARGE INSTRUCTIONS *Hold Metformin for 48 hours post heart cath. ACTIVITY * Go Home directly and rest. * Limit activity of the leg (or wrist if it was used) for 7 days including aerobics, swimming, jogging, bicycling, etc. * Restrict stair-climbing for 7 days if possible, if not, climb up with your non -cath leg, then bring together on the same step. * Avoid lifting, pushing, pulling or excessive movement of the affected extremity for 7 days. * Customary sexual activity may be resumed after 2 days-use caution not to use a position that strains or causes pain to the affected extremity. * No driving for 24 hours. * NO SMOKING. * Avoid straining for bowel movements for 7 days. * Gentle walking on level ground is allowed. * Returning to work will depend on the type of procedure and the results. Your doctor will discuss this with you. CALL YOUR DOCTOR FOR ANY OF THE FOLLOWING: *If bleeding from the puncture site occurs- Apply gentle pressure to site with clean cloth and call your doctor or EMS. * If a knot or lump forms under the skin, increases in size, or causes pain. * If bruising appears to be worsening or moving further down your leg instead of disappearing. * Temperature above 101 F. CARE OF YOUR GROIN INCISION; * Bruising or purple discoloration of the skin near the puncture site is common. * You may shower only, no bathtub bathing for 5 days. Be careful to avoid slipping as your leg may feel stiff. * If a closure device was used on your femoral artery, please see the attached guide regarding care of the device and your leg. * Leave the dressing on, until removed by office staff. CARE OF YOUR WRIST INCISION; * Bruising or purple discoloration of the skin near the puncture site is common. * You may shower. * DO NOT submerge wrist. * Leave dressing on, until removed by office staff.. Genna MELVIN MD Nov 19, 2017 10:11 pm
[2017-11-19] MEDS ORDERED: hydrOXYzine (VISTARIL) 25 MG CAP PO PRN (22:30)
[2017-11-19] MEDS ORDERED: MIRTAZAPINE 15 MG (REMERON) TAB ONE (22:34)
[2017-11-19] MEDS ORDERED: ATORVASTATIN 80 MG (LIPITOR) TABLET ONE (22:34)
[2017-11-19] MEDS ORDERED: GABAPENTIN 300 MG (NEURONTIN) CAP ONE (22:34)
[2017-11-19] MEDS: TICAGRELOR 90 MG TABLET (BRILINTA) PO SCH (22:41)
[2017-11-19] MEDS: ACETAMINOPHEN 325 MG TABLET PO PRN (22:55)
[2017-11-20] VITALS: BP 112/60
[2017-11-20 04:00] VITALS: BP 130/79
[2017-11-20 04:06] LABS: HEMOGLOBIN 11.8 G/DL (11.5-16.0); MEAN PLATELET VOLUME 9.9 FL (7.4-10.4); RED BLOOD COUNT 4.36 10^6/uL (4.35-5.85); RED CELL DISTRIBUTION WIDTH 16.8 % (10.0-14.5); WHITE BLOOD COUNT 6.4 10^3/uL (4.3-11.0)
[2017-11-20] MEDS: NS IV 1000 ML 1,000 ML IV SCH ×2 (04:22→08:28)
[2017-11-20 04:23] LABS: BUN/CREATININE RATIO 12; CALCIUM 8.8 MG/DL (8.5-10.1); CARBON DIOXIDE 19 MMOL/L (21-32); CHLORIDE 109 MMOL/L (98-107); CREATININE SERUM 0.73 MG/DL (0.60-1.30); GFR ESTIMATED > 60; GLUCOSE 101 MG/DL (70-105); SODIUM 137 MMOL/L (135-145)
[2017-11-20 08:00] VITALS: BP 108/60
--- NOTE | 2017-11-20 08:01 | Cardiology Discharge Summary ---
Diagnosis/Chief Complaint Date of Admission 11/19/17 Date of Discharge 11/20/17 Admission Diagnosis Chest pain, Abnormal Nuclear stress test Final/Discharge Diagnosis Severe CAD, s/p PCI Chief Complaint/HPI Chief Complaint/HPI This is a 46-year-old lady who presented with prolonged episode of chest pain with negative serial troponin. She has history of active smoking, significant family history of premature CAD and familial hyperlipidemia. Nuclear stress test was performed which showed evidence of reversible ischemia. Therefore, the patient was scheduled for coronary angiography. Discharge Summary Procedures Severe mid LAD stenosis - PCI. 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 All discharge instructions discussed at length with the patient. Follow up appt.: Dr Melvin in two to three weeks Dicharge Diet: Cardiac Diet Activity as Tolerated: Yes Home Medications Reviewed patient Home Medication Reconciliation performed by pharmacy medication reconciliations pest control service technician and/or nursing. Patients Allergies have been reviewed. Discharge Home Medications: Reviewed and agree with Discharge Medication list on patient's Discharge Instruction sheet Condition at discharge stable Instructions to patient/family Dr Melvin in two to three weeks. Genna MELVIN MD Nov 20, 2017 08:01
[2017-11-20 08:03] VITALS: BP 114/79
[2017-11-20] MEDS: TICAGRELOR 90 MG TABLET (BRILINTA) PO SCH (08:04)
[2017-11-20] MEDS: ACETAMINOPHEN 325 MG TABLET PO PRN (08:05)
[2017-11-20] MEDS: NICOTINE 21 MG (NICODERM) PATCH TD SCH (08:05)
[2017-11-20 09:00] VITALS: BP 108/60
[2017-11-20] MEDS ORDERED: GABAPENTIN 300 MG (NEURONTIN) CAP PO SCH (09:00)
[2017-11-20] MEDS ORDERED: MIRTAZAPINE 15 MG (REMERON) TAB PO SCH (21:00)
[2017-11-21] MEDS ORDERED: NICOTINE PATCH REMOVAL TP SCH (08:59)
== END 2017-11-20 10:36 | disposition home or self-care (01) ==
LOC: CATH 08:21 → ICU 13:47 → CATH 11-20 10:36
PROVIDERS: ATTEND Internal Medicine Interventional Cardiology
DX: I25.10 Atherosclerotic heart disease of native coronary artery without angina pectoris (principal); R94.39 Abnormal result of other cardiovascular function study; E78.4 Other hyperlipidemia; F17.210 Nicotine dependence, cigarettes, uncomplicated; Z82.49 Family history of ischemic heart disease and other diseases of the circulatory system; Z79.82 Long term (current) use of aspirin; Z79.899 Other long term (current) drug therapy
CPT/HCPCS: 36415; 80048; 80053; 85027; 85347; 85610; 85730; 87081; 90686; 93005; 93458

== ENCOUNTER 2017-12-06 17:58 | Emergency (ER) | payer SELFPAY ==
[~2017-12-06] VITALS: Ht 157.5 cm; Wt 97.5 kg
[~2017-12-06 17:58] MED LIST changes: +ASPI-999 PO; +LISI-556 PO; +METO-351 PO; +TICA90TA PO
--- OUTSIDE RECORDS SUMMARY | 2017-12-06 18:03 | XMS REPORT ---
Author Author XIANG COTTO [facility] Address [address] [place] [address] Care Team Providers Care Window Glazier Name Role Phone XIANG COTTO Unavailable PROBLEMS Type Condition ICD9-CM Code [id number] Code Onset Dates Condition Status SNOMED Code Problem Coronary artery disease involving marshall coronary artery of marshall heart with angina pectoris I25.119 Active [id number] Problem Status post coronary artery stent placement Z95.5 Active 125959824 Problem Restless legs G25.81 Active 26836483 Problem History of alcoholism F10.21 Active 475121441 Problem Cigarette smoker motivated to quit F17.200 Active 33119822 Problem Panic attack F41.0 Active [id number] ALLERGIES No Known Allergies ENCOUNTERS Encounter Location Date Diagnosis [facility] [id number] [place] [phone] 17 Nov, 2017 [facility] [id number] [place] [phone] Nov, 2017 [facility] [id number] [place] [phone] 21 Oct, 2017 Encounter for immunization Z23 ; Coronary artery disease involving marshall coronary artery of marshall heart with angina pectoris I25.119 ; Status post coronary artery stent placement Z95.5 and Cigarette smoker motivated to quit F17.200 [facility] [id number] [place] [phone] 18 Oct, 2017 [facility] [id number] [place] [phone] Oct, 2017 Chest pain, unspecified type R07.9 [facility] [id number] [place] [phone] Oct, Panic attack F41.0 ; Change in vision H53.9 and Light- headed feeling R42 [facility] [address] [facility] [id number] [place] [address] Sep, Tremor R25.1 ; Restless legs G25.81 and History of alcoholism F10.21 IMMUNIZATIONS No Known Immunizations SOCIAL HISTORY Never Assessed REASON FOR VISIT sitting at home et started having pain in her left arm et her arm was numb. this happened 10 minutes ago. symptoms have subsided. denies jaw, neck, back pain. pt also reports a cough. jermaine, pt had been in [facility] for alcohol addiction from 10/09-11/09 2017. now currently in the womens sn[facility]., pt reports she has been under a lot of stress...looking for a job et living in a snf. also reports panic attacks., does report some pain in her chest., 1346 - ASA 81mg PO chewed, 1346 - Nitro 0.4mg SL, 1346 - EKG in progress, 1400 - called [facility] dispatch at [facility] , 1400 - O2 @ 2lpm n/c, 1403 - called via [facility] et gave nurse report to JELANI yeboah no report given...anabell Rawls just gave dr ferreira report et she is giving report to obinna., 1428 - [facility] here at this time, 1433 - left with EMS PLAN OF CARE Activity Details Follow Up sent to ER Reason: VITAL SIGNS Height 62 in 2017-11-16 Weight 204.0 lbs 2017-11-16 Temperature 97.2 degrees Fahrenheit 2017-11-16 Heart Rate 88 bpm 2017-11-16 Respiratory Rate 20 2017-11-16 BMI 37.31 kg/m2 2017-11-16 Blood pressure systolic 120 mmHg 2017-11-16 Blood pressure diastolic 72 mmHg 2017-11-16 MEDICATIONS Medication Instructions Dosage Frequency Start Date End Date Duration Status Viibryd 10 MG Active HydrOXYzine HCl Active Remeron 15 MG Orally Once a day 1 tablet at bedtime 24h Oct, Active Gabapentin 300 MG Orally 3 times a day 1 capsule 8h Oct, Active RESULTS No Results PROCEDURES Procedure Date Ordered Result Body Site EKG, TRACING (IN-HOUSE) 2017-11-16 Abnormal ELECTROCARDIOGRAM, TRACING Nov 16, 2017 INSTRUCTIONS MEDICATIONS ADMINISTERED No Known Medications MEDICAL (GENERAL) HISTORY Type Description Date Medical History High cholesterol Medical History Anxiety/ Panic attacks Medical History Major depression Medical History heart disease Surgical History 2 c-sections Surgical History stent 11/16/2017 Hospitalization History [facility] 2014 Hospitalization History heart problems 11/16/2017
--- OUTSIDE RECORDS SUMMARY | 2017-12-06 18:03 | XMS REPORT ---
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 Active 4024466362368 Problem Status post coronary artery stent placement Z95.5 Active 084532518 Problem Restless legs G25.81 Active 18560750 Problem History of alcoholism F10.21 Active 395131764 Problem Cigarette smoker motivated to quit F17.200 Active 70431035 Problem Panic attack F41.0 Active 447719224 ALLERGIES No Known Allergies ENCOUNTERS Encounter Location Date Diagnosis [facility] [id number] [place] [phone] 17 Nov, 2017 [facility] [address] [address] 12 Nov, 2017 [facility] [id number] [place] [address]908- [phone] 21 Oct, 2017 Encounter for immunization Z23 ; Coronary artery disease involving [place] coronary artery of [place] heart with angina pectoris I25.119 ; Status post coronary artery stent placement Z95.5 and Cigarette smoker motivated to quit F17.200 [facility] [id number] [place] [phone]- [phone] 18 Oct, 2017 [facility] [id number] [place] [phone] -[phone] 17 Oct, 2017 Chest pain, unspecified type R07.9 [facility] [id number] [place] [address] [phone]- [phone] 04 Oct, 2017 Panic attack F41.0 ; Change in vision H53.9 and Light- headed feeling R42 [facility] [address] [facility] [id number] [place] [address] Sep, Tremor R25.1 ; Restless legs G25.81 and History of alcoholism F10.21 IMMUNIZATIONS Vaccine Route Administration Date Status FLULAVAL QUAD 0.5ML (6 MO & UP) 2017 Unknown Nov 20, 2017 Administered SOCIAL HISTORY Never Assessed REASON FOR VISIT [facility] follow up-jeantripART paient is having some panic attack issues, concerns about some heart issues that she is worried about, couhging up yellowish phlegm. PLAN OF CARE Activity Details Follow Up 3 Weeks Reason:CAD f/u VITAL SIGNS Height 62 in 2017-11-20 Weight 207.7 lbs 2017-11-20 Temperature 97.4 degrees Fahrenheit 2017-11-20 Heart Rate 105 bpm 2017-11-20 Respiratory Rate 20 2017-11-20 Oximetry on room air:97 % 2017-11-20 BMI 37.98 kg/m2 2017-11-20 Blood pressure systolic 120 mmHg 2017-11-20 Blood pressure diastolic 74 mmHg 2017-11-20 MEDICATIONS Medication Instructions Dosage Frequency Start Date End Date Duration Status Gabapentin 300 MG Orally 3 times a day 1 capsule 8h Oct, Active Remeron 15 MG Orally Once a day 1 tablet at bedtime 24h Oct, Active Viibryd 10 MG Active Ticagrelor 90 MG Orally Twice a day 1 tablet 12h 30 day(s) Active Aspirin 81 MG Orally Once a day 1 tablet 24h 30 day(s) Active HydrOXYzine HCl Active Atorvastatin Calcium 80 MG Orally Once a day 1 tablet 24h 30 day(s) Active Lisinopril 5 MG Orally Once a day 1 tablet 24h 30 day(s) Active Metoprolol Succinate 25 MG as directed Active RESULTS No Results PROCEDURES Procedure Date Ordered Result Body Site FLULAVAL QUAD 0.5ML (6 MO AND UP) 2018 Nov 20, 2017 SINGLE IMMUNIZATION ADMIN Nov 20, 2017 INSTRUCTIONS MEDICATIONS ADMINISTERED No Known Medications MEDICAL (GENERAL) HISTORY Type Description Date Medical History High cholesterol Medical History Anxiety/ Panic attacks Medical History Major depression Medical History heart disease Surgical History 2 c-sections Surgical History stent 11/16/2017 Hospitalization History [facility] 2014 Hospitalization History heart problems 11/16/2017
--- OUTSIDE RECORDS SUMMARY | 2017-12-06 18:04 | XMS REPORT ---
Author Author MARCO ANTONIO TALLEY Organization [facility] Address [address] [place] [address] Care Team Providers Care Corporate Controller Name Role Phone MARCO ANTONIO TALLEY Unavailable PROBLEMS Type Condition ICD9-CM Code CFK90-KN Code Onset Dates Condition Status SNOMED Code Problem Coronary artery disease involving [place] coronary artery of [place] heart with angina pectoris I25.119 Active 1673628601011 Problem Status post coronary artery stent placement Z95.5 Active 467634255 Problem Restless legs G25.81 Active 05439123 Problem History of alcoholism F10.21 Active 855370006 Problem Cigarette smoker motivated to quit F17.200 Active 08274633 Problem Panic attack F41.0 Active 220108925 ALLERGIES No Known Allergies ENCOUNTERS Encounter Location Date Diagnosis [facility] [id number] [place] [address]35- [phone] 12 Nov, 2017 [facility] [address] [address] 03 Nov, 2017 [facility] [id number] [place] [address] 23853- 0493 21 Oct, 2017 Encounter for immunization Z23 ; Coronary artery disease involving [place] coronary artery of [place] heart with angina pectoris I25.119 ; Status post coronary artery stent placement Z95.5 and Cigarette smoker motivated to quit F17.200 [facility] [id number] [place] [address] 95984- 3612 18 Oct, 2017 [facility] [id number] [place] [address]28 -[phone] 17 Oct, 2017 Chest pain, unspecified type R07.9 [facility] [id number] [place] [address] 83216- 9380 04 Oct, 2017 Panic attack F41.0 ; Change in vision H53.9 and Light- headed feeling R42 [facility] [address] [facility] [id number] [place] [address] Sep, Tremor R25.1 ; Restless legs G25.81 and History of alcoholism F10.21 IMMUNIZATIONS No Known Immunizations SOCIAL HISTORY Never Assessed REASON FOR VISIT PT reports she has been experincing restless legs, as well as her arms for the last few weeks. PT notes she has been having chills as well -Anderosn [facility] PLAN OF CARE Activity Details Follow Up prn Reason:lab work VITAL SIGNS Height 62 in 2017-10-23 Weight 201.9 lbs 2017-10-23 Temperature 97.9 degrees Fahrenheit 2017-10-23 Heart Rate 63 bpm 2017-10-23 Respiratory Rate 20 2017-10-23 Oximetry 99 % 2017-10-23 BMI 36.92 kg/m2 2017-10-23 Blood pressure systolic 130 mmHg 2017-10-23 Blood pressure diastolic 70 mmHg 2017-10-23 MEDICATIONS Medication Instructions Dosage Frequency Start Date End Date Duration Status Effexor Active Olanzapine 20 MG Active Viibryd 10 MG Not-Taking HydrOXYzine HCl Active RESULTS No Results PROCEDURES Procedure Date Ordered Result Body Site COMPLETE CBC W/AUTO DIFF WBC Oct 23, 2017 ASSAY THYROID STIM HORMONE Oct 23, 2017 COMPREHEN METABOLIC PANEL Oct 23, 2017 ASSAY OF FREE THYROXINE Oct 23, 2017 INSTRUCTIONS MEDICATIONS ADMINISTERED No Known Medications MEDICAL (GENERAL) HISTORY Type Description Date Medical History High cholesterol Medical History Anxiety/ Panic attacks Medical History Major depression Medical History heart disease Surgical History 2 c-sections Surgical History stent 11/16/2017 Hospitalization History [facility] 2014 Hospitalization History heart problems 11/16/2017
--- OUTSIDE RECORDS SUMMARY | 2017-12-06 18:04 | XMS REPORT ---
Author Author MARCO ANTONIO TALLEY Organization [facility] Address [address] [place] [address] Care Team Providers Care Political Science Faculty Member Name Role Phone MARCO ANTONIO TALLEY Unavailable PROBLEMS Type Condition ICD9-CM Code AYS88-WZ Code Onset Dates Condition Status SNOMED Code Problem Coronary artery disease involving [place] coronary artery of [place] heart with angina pectoris I25.119 Active 3836345212013 Problem Status post coronary artery stent placement Z95.5 Active 772805898 Problem Restless legs G25.81 Active 78226569 Problem History of alcoholism F10.21 Active 633160607 Problem Cigarette smoker motivated to quit F17.200 Active 11702436 Problem Panic attack F41.0 Active 936921187 ALLERGIES No Known Allergies ENCOUNTERS Encounter Location Date Diagnosis [facility] [id number] [place] [address]3778[phone] 12 Nov, 2017 [facility] [address] [phone] 03 Nov, 2017 [facility] [id number] [place] [address]23[address] 79[address] 21 Oct, 2017 Encounter for immunization Z23 ; Coronary artery disease involving [place] coronary artery of [place] heart with angina pectoris I25.119 ; Status post coronary artery stent placement Z95.5 and Cigarette smoker motivated to quit F17.200 [facility] [id number] [place] [address] 93633- 8984 18 Oct, 2017 [facility] [id number] [place] [address] 65092 -[phone] 17 Oct, 2017 Chest pain, unspecified type R07.9 [facility] [id number] [place] [address]12- 2157 04 Oct, 2017 Panic attack F41.0 ; Change in vision H53.9 and Light- headed feeling R42 [facility] [address] [facility] [id number] [place] [address] Sep, Tremor R25.1 ; Restless legs G25.81 and History of alcoholism F10.21 IMMUNIZATIONS No Known Immunizations SOCIAL HISTORY Never Assessed REASON FOR VISIT light headed, nausea, weak and tremors to hands bilat. JELANI Guzman PLAN OF CARE Activity Details Follow Up prn Reason: VITAL SIGNS Height 62 in 2017-11-03 Weight 208.2 lbs 2017-11-03 Temperature 98.9 degrees Fahrenheit 2017-11-03 Heart Rate 96 bpm 2017-11-03 Respiratory Rate 18 2017-11-03 BMI 38.08 kg/m2 2017-11-03 Blood pressure systolic 118 mmHg 2017-11-03 Blood pressure diastolic 76 mmHg 2017-11-03 MEDICATIONS Medication Instructions Dosage Frequency Start Date End Date Duration Status Viibryd 10 MG Active HydrOXYzine HCl Active Gabapentin 300 MG Orally 3 times a day 1 capsule 8h Oct, Active Remeron 15 MG Orally Once a day 1 tablet at bedtime 24h Oct, Active RESULTS No Results PROCEDURES No Known procedures INSTRUCTIONS MEDICATIONS ADMINISTERED No Known Medications MEDICAL (GENERAL) HISTORY Type Description Date Medical History High cholesterol Medical History Anxiety/ Panic attacks Medical History Major depression Medical History heart disease Surgical History 2 c-sections Surgical History stent 11/16/2017 Hospitalization History [facility] 2014 Hospitalization History heart problems 11/16/2017
--- OUTSIDE RECORDS SUMMARY | 2017-12-06 18:04 | XMS REPORT ---
Author Author MARCO ANTONIO TALLEY Organization [facility] Address [address] [place] [address] Care Team Providers Care Crystal Slicer Name Role Phone MARCO ANTONIO TALLEY Unavailable PROBLEMS Type Condition ICD9-CM Code KMF80-HB Code Onset Dates Condition Status SNOMED Code Problem Coronary artery disease involving [place] coronary artery of [place] heart with angina pectoris I25.119 Active 2771607531919 Problem Status post coronary artery stent placement Z95.5 Active 845121189 Problem Restless legs G25.81 Active 97916434 Problem History of alcoholism F10.21 Active 058422697 Problem Cigarette smoker motivated to quit F17.200 Active 16935411 Problem Panic attack F41.0 Active 586858570 ALLERGIES No Information ENCOUNTERS Encounter Location Date Diagnosis [facility] [id number] [place] [address]34- [address] 17 Nov, 2017 [facility] [id number] [place] [address] 79239- 3209 12 Nov, 2017 [facility] [id number] [place] [address] 42114- 95[address] 21 Oct, 2017 Encounter for immunization Z23 ; Coronary artery disease involving [place] coronary artery of [place] heart with angina pectoris I25.119 ; Status post coronary artery stent placement Z95.5 and Cigarette smoker motivated to quit F17.200 [facility] [id number] [place] [address] [phone] 18 Oct, 2017 [facility] [id number] [place] [address] [phone] -[phone] 17 Oct, 2017 Chest pain, unspecified type R07.9 [facility] [id number] [place] [address] [phone] 04 Oct, 2017 Panic attack F41.0 ; Change in vision H53.9 and Light- headed feeling R42 [facility] [address] [facility] [id number] [place] [address] Sep, Tremor R25.1 ; Restless legs G25.81 and History of alcoholism F10.21 IMMUNIZATIONS No Known Immunizations SOCIAL HISTORY Never Assessed REASON FOR VISIT Referral PLAN OF CARE VITAL SIGNS MEDICATIONS Unknown Medications RESULTS No Results PROCEDURES No Known procedures INSTRUCTIONS MEDICATIONS ADMINISTERED No Known Medications MEDICAL (GENERAL) HISTORY Type Description Date Medical History High cholesterol Medical History Anxiety/ Panic attacks Medical History Major depression Medical History heart disease Surgical History 2 c-sections Surgical History stent 11/16/2017 Hospitalization History [facility] 2014 Hospitalization History heart problems 11/16/2017
[2017-12-06] MEDS ORDERED: ASPIRIN 81 MG CHEW (CHILDREN'S ASA) PO ONE (18:15)
[2017-12-06 18:38] LABS: BASOPHILS % (AUTO) 0 % (0-10); EOSINOPHILS # (AUTO) 0.2 10^3/uL (0.0-0.3); EOSINOPHILS % (AUTO) 3 % (0-10); HEMATOCRIT 35 % (35-52); HEMOGLOBIN 11.3 G/DL (11.5-16.0); LYMPHOCYTES # (AUTO) 2.2 X 10^3 (1.0-4.0); LYMPHOCYTES % (AUTO) 26 % (12-44); MEAN CORPUSCULAR HEMOGLOBIN 27 PG (25-34); MEAN CORPUSCULAR HGB CONC 33 G/DL (32-36); MEAN CORPUSCULAR VOLUME 83 FL (80-99); MONOCYTES # (AUTO) 0.5 X 10^3 (0.0-1.0); MONOCYTES % (AUTO) 6 % (0-12); NEUTROPHILS # (AUTO) 5.5 X 10^3 (1.8-7.8); NEUTROPHILS % (AUTO) 65 % (42-75); PLATELET COUNT 356 10^3/uL (130-400); RED BLOOD COUNT 4.16 10^6/uL (4.35-5.85); RED CELL DISTRIBUTION WIDTH 15.9 % (10.0-14.5); WHITE BLOOD COUNT 8.5 10^3/uL (4.3-11.0)
--- NOTE | 2017-12-06 18:47 | ED Chest Pain ---
General Chief Complaint: Chest Pain Stated Complaint: CHEST PAIN Nursing Triage Note: pt states the events began this am after she woke up late, pt feels like she may have had a panic attack. Pt states she is experiencing a numb sensation in the left arm that she has experienced in the past that the pt stated, accompanies her panic attacks. Source: patient, old records Exam Limitations: no limitations History of Present Illness Date Seen by Provider: Dec 06, 2017 Time Seen by Provider: 18:05 Initial Comments This 46 year old woman with known coronary artery disease and cardiac angiography with stent placement 2 on November 19, 2017, presents to the ER with chest pain. She has severe 3 vessel disease and required stents in the LAD and left circumflex. Pain has been intermittent since waking this morning. It radiates into the left shoulder and left lateral neck. Pain is better with rest and deep breathing. Patient sometimes has problems with panic attacks and wonders if this may be related to panic. She states pain was 5/10 at its worst and is 1/10 at present. Pain at this time is characterized as a mild squeezing sensation in the shoulder. It does hurt to move the left shoulder. She has some numbness in the left hand which has been intermittent since prior to her PCI on the . She states this sensation sometimes occurs with panic attacks. She took aspirin 81 mg this morning and has been compliant with her Brilinta. Patient still smokes. She states she was told many years ago that she has degenerative disease in her neck. She wonders if her symptoms may be related to a "pinched nerve". Allergies and Home Medications Allergies Coded Allergies: No Known Drug Allergies (Unverified , 11/16/17) Home Medications Aspirin 81 Mg Tab.chew, 81 MG PO DAILY Prescribed by: Genna MELVIN on 11/19/172207 Atorvastatin Calcium 80 Mg Tablet, 80 MG PO DAILY, (Reported) Gabapentin 300 Mg Capsule, 300 MG PO TID, (Reported) Hydroxyzine Pamoate 25 Mg Capsule, 25 MG PO BID PRN for ANXIETY, (Reported) Lisinopril 5 Mg Tablet, 5 MG PO DAILY Prescribed by: Genna MELVIN on 11/19/172209 Metoprolol Succinate 25 Mg Tab.er.24h, 25 MG PO DAILY Prescribed by: Genna MELVIN on 11/19/172208 Mirtazapine 15 Mg Tablet, 15 MG PO HS, (Reported) Ticagrelor 90 Mg Tablet, 90 MG PO BID Prescribed by: Genna MELVIN on 11/19/172207 Vilazodone Hydrochloride 20 Mg Tablet, 20 MG PO DAILY, (Reported) Patient Home Medication List Home Medication List Reviewed: Yes Review of Systems Review of Systems Constitutional: no symptoms reported EENTM: No Symptoms Reported Respiratory: No Symptoms Reported Cardiovascular: See HPI Gastrointestinal: No Symptoms Reported Genitourinary: No Symptoms Reported Musculoskeletal: see HPI Skin: no symptoms reported Psychiatric/Neurological: See HPI Endocrine: No Symptoms Reported Hematologic/Lymphatic: No Symptoms Reported Past Zgrrwpl-Bhyser-Lridsl Hx Past Med/Social Hx: Reviewed and Corrections made Patient Social History Smoking Status: Current Everyday Smoker Type Used: Cigarettes Recent Foreign Travel: No Contact w/Someone Who Travel: No Recent Infectious Disease Expo: No Recent Hopitalizations: Yes (June 2017 was intubated for alcohol intoxication) Immunizations Up To Date Tetanus Booster (TDap): Unknown PED Vaccines UTD: Yes Date of Pneumonia Vaccine: Dec 19, 2014 Seasonal Allergies Seasonal Allergies: No Past Medical History Surgeries: Yes (heart stent x2) Section, Coronary Stent Respiratory: No Cardiac: Yes Coronary Artery Disease, High Cholesterol Neurological: No (have had a withdraw seizure from alcohol) : No Female Reproductive Disorders: Denies Sexually Transmitted Disease: No HIV/AIDS: No Genitourinary: No Gastrointestinal: Yes (occasional GERD) Gastroesophageal Reflux Musculoskeletal: No (plantar facitis) Endocrine: No HEENT: No Loss of Vision: Denies Hearing Impairment: Denies Cancer: No Psychosocial: Yes Anxiety Integumentary: No (cold sore) Blood Disorders: No Adverse Reaction/Blood Tranf: No Family Medical History Reviewed Nursing Family Hx Cardiovascular disease 19 FATHER, , Age:40's - 50, Onset:25's - 30 G8 SISTER, , Age:30's - 40, Onset:Adolescence CAD Under 55 Years Old, CVA Sister of DC at 34 Physical Exam Vital Signs Vital Signs - First Documented 12/06/17 12/06/17 18:00 18:35 Temp 97.9 Pulse 92 Resp 20 B/P (MAP) 132/74 (93) Pulse Ox 97 O2 Delivery Room Air O2 Flow Rate 98.00 Capillary Refill : Less Than 3 Seconds Height, Weight, BMI Height: 5'2.00" Weight: 200lbs. 0.0oz. 90.453352ar; 36.6 BMI Method:Stated General Appearance: No Apparent Distress, WD/WN HEENT: PERRL/EOMI, Normal ENT Inspection, Pharynx Normal Neck: Normal Inspection, Non Tender Respiratory: Chest Non Tender, Lungs Clear, Normal Breath Sounds, No Accessory Muscle Use, No Respiratory Distress Cardiovascular: Regular Rate, Rhythm, No Edema, No Murmur, Normal Peripheral Pulses Gastrointestinal: Normal Bowel Sounds, Non Tender, Soft Extremity: Normal Capillary Refill, Normal Inspection, Non Tender, No Pedal Edema, Other (pain in the left shoulder with range of motion) Neurologic/Psychiatric: Alert, Oriented x3, No Motor/Sensory Deficits, Normal Mood/Affect, side panel padder II-XII Norm as Tested, Other (sensation of numbness in the left fingers but sensation intact on exam.) Skin: Normal Color, Warm/Dry Progress/Results/Core Measures Results/Orders Lab Results Laboratory Tests Test 12/06/17 18:29 12/06/17 21:00 Range/Units White Blood Count 8.5 4.3-11.0 10^3/uL Red Blood Count 4.16 L 4.35-5.85 10^6/uL Hemoglobin 11.3 L 11.5-16.0 G/DL Hematocrit 35 35-52 % Mean Corpuscular Volume 83 80-99 FL Mean Corpuscular Hemoglobin 27 25-34 PG Mean Corpuscular Hemoglobin Concent 33 32-36 G/DL Red Cell Distribution Width 15.9 H 10.0-14.5 % Platelet Count 356 130-400 10^3/uL Mean Platelet Volume 10.0 7.4-10.4 FL Neutrophils (%) (Auto) 65 42-75 % Lymphocytes (%) (Auto) 26 12-44 % Monocytes (%) (Auto) 6 0-12 % Eosinophils (%) (Auto) 3 0-10 % Basophils (%) (Auto) 0 0-10 % Neutrophils # (Auto) 5.5 1.8-7.8 X 10^3 Lymphocytes # (Auto) 2.2 1.0-4.0 X 10^3 Monocytes # (Auto) 0.5 0.0-1.0 X 10^3 Eosinophils # (Auto) 0.2 0.0-0.3 10^3/uL Basophils # (Auto) 0.0 0.0-0.1 10^3/uL Prothrombin Time 12.4 12.2-14.7 SEC INR Comment 0.9 0.8-1.4 Activated Partial Thromboplast Time 30 24-35 SEC Sodium Level 140 135-145 MMOL/L Potassium Level 3.5 L 3.6-5.0 MMOL/L Chloride Level 106 98-107 MMOL/L Carbon Dioxide Level 21 21-32 MMOL/L Anion Gap 13 5-14 MMOL/L Blood Urea Nitrogen 7 7-18 MG/DL Creatinine 0.88 0.60-1.30 MG/DL Estimat Glomerular Filtration Rate > 60 BUN/Creatinine Ratio 8 Glucose Level 121 H 70-105 MG/DL Calcium Level 9.2 8.5-10.1 MG/DL Corrected Calcium 9.0 8.5-10.1 MG/DL Magnesium Level 2.1 1.8-2.4 MG/DL Total Bilirubin 0.2 0.1-1.0 MG/DL Aspartate Amino Transf (AST/SGOT) 16 5-34 U/L Alanine Aminotransferase (ALT/SGPT) 17 0-55 U/L Alkaline Phosphatase 109 40-136 U/L Myoglobin 24.0 10.0-92.0 NG/ML Troponin I < 0.30 < 0.30 <0.30 NG/ML Total Protein 7.4 6.4-8.2 GM/DL Albumin 4.2 3.2-4.5 GM/DL My Orders Orders - ROSA BRITO MD Cbc With Automated Diff (12/06/17 18:13) Magnesium (12/06/17 18:13) Chest 1 View, Ap/Pa Only (12/06/17 18:13) Ekg Tracing (12/06/17 18:13) Cardiac Profile 1 (12/06/17 18:13) Comprehensive Metabolic Panel (12/06/17 18:13) Myoglobin Serum (12/06/17 18:) Protime With Inr (12/06/17 18:13) Partial Thromboplastin Time (12/06/17 18:13) O2 (12/06/17 18:13) Monitor-Rhythm Ecg Trace Only (12/06/17 18:13) Aspirin Chewable Tablet (Baby Aspirin Ch (12/06/17 18:15) Saline Lock/Iv-Start (12/06/17 18:13) Troponin I (12/06/17 21:30) Medications Given in ED Vital Signs/I&O 12/06/17 12/06/17 12/06/17 12/06/17 18:00 18:04 18:35 22:01 Temp 97.9 98.0 Pulse 92 82 Resp 20 16 B/P (MAP) 132/74 (93) 113/63 (80) Pulse Ox 97 98 97 O2 Delivery Room Air Room Air Room Air Room Air O2 Flow Rate 98.00 Blood Pressure Mean: 93 Progress Progress Note #1: Time: 18:52 Progress Note EKG was unremarkable. Discomfort was minimal at the time of exam. 3 additional aspirin 81 mg tablets were given. Chest pain workup is being pursued. Progress Note #2: Progress Note Workup was unremarkable. Patient's pain and paresthesia dissipated. Case was discussed with Dr. Melvin who recommended a 3 hour troponin rule out. This was obtained and was negative. Patient departed with no symptoms and instructions to follow-up as an outpatient. Initial ECG Impression Date: Dec 06, 2017 Initial ECG Impression Time: 18:03 Initial ECG Rate: 86 Initial ECG Rhythm: Normal Sinus Initial ECG Intervals: Normal Initial ECG Impression: Normal Comment Normal sinus rhythm with no ST elevation or depression. No abnormal intervals or axis deviation. Diagnostic Imaging Diagonstic Imaging: Xray Plain Films/CT/US/NM/MRI: chest Comments Chest x-ray viewed by me and report reviewed. See report below: NAME: NORI WALL [facility] REC#: [id number] PT STATUS: REG ER : 1970 PHYSICIAN: ROSA BRITO MD ADMIT DATE: 12/06/17/ER Signed Date of Exam:12/06/17 CHEST 1 VIEW, AP/PA ONLY Indication: Left-sided chest pain. Comparison: 11/16/2017 Findings: No focal airspace disease in the visualized lungs. Please note that the posterior lower lobes are poorly evaluated by portable radiography. No pleural effusion or pneumothorax. Normal cardiomediastinal silhouette. Impression: No acute cardiopulmonary process by portable radiography. Dictated by: Dictated on workstation # [id number] Dict: 12/06/171906 Trans: 12/06/171907 [facility] [id number] Interpreted by: MAGAN ROBERTSON MD Electronically signed by: MAGAN ROBERTSON MD 12/06/171907 Departure Impression Primary Impression: Chest pain Qualified Codes: R07.9 - Chest pain, unspecified Additional Impressions: Coronary artery disease Qualified Codes: I25.10 - Atherosclerotic heart disease of [place] coronary artery without angina pectoris Paresthesias in left hand Disposition: 01 HOME, SELF-CARE Condition: Improved Departure-Patient Inst. Decision time for Depature: 21:45 Referrals: [facility][1[facility] (PCP/Family) Primary Care Physician Genna MELVIN MD Patient Instructions: Chest Pain (DC) Add. Discharge Instructions: Follow-up with Dr. Melvin as soon as possible. Please call his office tomorrow morning. Continue your medications as previously prescribed. Return to care if symptoms are worsening again. Work toward quitting smoking. All discharge instructions reviewed with patient and/or family. Voiced understanding. Copy Copies To 1: Genna MELVIN MD, JOSHUA T MD Dec 06, 2017 18:47
[2017-12-06 18:53] LABS: INR 0.9 (0.8-1.4); PROTHROMBIN TIME PATIENT 12.4 SEC (12.2-14.7)
[2017-12-06 18:59] LABS: ALANINE AMINOTRANSFERASE 17 U/L (0-55); ALBUMIN 4.2 GM/DL (3.2-4.5); ALKALINE PHOSPHATASE 109 U/L (40-136); BILIRUBIN,TOTAL 0.2 MG/DL (0.1-1.0); BUN/CREATININE RATIO 8; CALCIUM 9.2 MG/DL (8.5-10.1); CARBON DIOXIDE 21 MMOL/L (21-32); CHLORIDE 106 MMOL/L (98-107); CREATININE SERUM 0.88 MG/DL (0.60-1.30); GFR ESTIMATED > 60; GLUCOSE 121 MG/DL (70-105); MAGNESIUM 2.1 MG/DL (1.8-2.4); POTASSIUM 3.5 MMOL/L (3.6-5.0); SODIUM 140 MMOL/L (135-145); TOTAL PROTEIN 7.4 GM/DL (6.4-8.2)
--- NOTE | 2017-12-06 19:10 | Diagnostic Imaging Report ---
CHEST 1 VIEW, AP/PA ONLY Indication: Left-sided chest pain. Comparison: 11/16/2017 Findings: No focal airspace disease in the visualized lungs. Please note that the posterior lower lobes are poorly evaluated by portable radiography. No pleural effusion or pneumothorax. Normal cardiomediastinal silhouette. Impression: No acute cardiopulmonary process by portable radiography. Dictated by: Dictated on workstation # [id number]
[2017-12-06 22:01] VITALS: BP 113/63
== END 2017-12-06 22:01 | disposition home or self-care (01) ==
LOC: EDUNIT# 17:58 → ER 18:00
DX: R07.9 Chest pain, unspecified (principal); I25.10 Atherosclerotic heart disease of native coronary artery without angina pectoris; R20.2 Paresthesia of skin; F41.0 Panic disorder [episodic paroxysmal anxiety]; E78.00 Pure hypercholesterolemia, unspecified; K21.9 Gastro-esophageal reflux disease without esophagitis; F17.210 Nicotine dependence, cigarettes, uncomplicated; Z98.890 Other specified postprocedural states; Z95.5 Presence of coronary angioplasty implant and graft; Z82.49 Family history of ischemic heart disease and other diseases of the circulatory system; Z79.82 Long term (current) use of aspirin
CPT/HCPCS: 36415; 71045; 80053; 83735; 83874; 84484; 85025; 85610; 85730; 93005; 93041

== ENCOUNTER 2018-03-10 21:02 | Emergency (ER) | payer SELFPAY ==
[~2018-03-10] VITALS: Ht 157.5 cm; Wt 95.3 kg
--- OUTSIDE RECORDS SUMMARY | 2018-03-10 21:07 | XMS REPORT ---
Author Author MARCO ANTONIO TALLEY Organization [facility] Address [address] [place] [address] Care Team Providers Care Core Manager Name Role Phone MARCO ANTONIO TALLEY Unavailable PROBLEMS Type Condition ICD9-CM Code DVG69-TN Code Onset Dates Condition Status SNOMED Code Problem Panic attack F41.0 Active 983079563 Problem Status post coronary artery stent placement Z95.5 Active 898679975 Problem Cigarette smoker motivated to quit F17.200 Active 51161777 Problem History of alcoholism F10.21 Active 464736434 Problem Restless legs G25.81 Active 30448100 Problem Meralgia paresthetica of right side G57.11 Active 450422313839741 Problem Paresthesia of hand, bilateral R20.2 Active 004375177 Problem 3-vessel CAD I25.10 Active 777306483 Problem 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 Active 0486173907454 Problem Hyperlipidemia, unspecified hyperlipidemia type E78.5 Active 46274912 Problem Current smoker F17.200 Active 00473168 ALLERGIES No Information ENCOUNTERS Encounter Location Date Diagnosis [facility] [address], [place] [address] Jan, Paresthesia of hand, bilateral R20.2 ; Meralgia paresthetica of right side G57.11 ; Pruritus ani L29.0 ; History of hemorrhoids Z87.19 ; Class 3 severe obesity due to excess calories with serious comorbidity in adult, unspecified BMI E66.01 and BMI 40.0-44.9, adult Z68.41 [facility] [id number] [address] 17 Jan, 2018 [facility] [id number] [address] Jan, [place] [address] [id number], [place] [address] Dec, [facility] [id number] [place] [address] 01522- 6107 Dec, Dental examination Z01.20 [facility] [id number] [place] [address] 73891 -3836 Dec, Mouth pain K13.79 [facility] [id number] [place] [address] 03504 -6289 Dec, [facility] [id number] [place] [address] 88086- 1870 Dec, [facility] [id number] [place] [address] 12072- 0765 Dec, [facility] [id number] [place] [address] 25705- 9526 Dec, 3-vessel CAD I25.10 ; Hyperlipidemia, unspecified hyperlipidemia type E78.5 and Current smoker F17.200 [place] [id number] [place] [address] 93752- 0745 Dec, 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 [place] [id number] [place] [address] 10888- 7576 Dec, 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 [place] [address] [place] [address] 14321- 6976 Nov, Blood glucose elevated R73.9 [place] [id number] [place] [address] 09929- 0211 Nov, Blood glucose elevated R73.9 [place] [id number] [place] [address] 27215- 4209 Nov, 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 ; Cigarette smoker motivated to quit F17.200 and Acute pain of left shoulder M25.512 [facility] [address], [place] [address] 12 Nov, 2017 [facility] [id number] [place] [address] 53063- 7704 Nov, [facility] [id number] [place] [address] 28428- 5121 Nov, [facility] [id number] [place] [address] 96777- 1216 Oct, Encounter for immunization Z23 ; 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 ; Status post coronary artery stent placement Z95.5 and Cigarette smoker motivated to quit F17.200 [place] [id number] [place] [address] 75690- 5546 18 Oct, 2017 [facility] [id number] [place] [address] 68984 -2119 17 Oct, 2017 Chest pain, unspecified type R07.9 [place] [id number] [place] [address] 78037- 4707 04 Oct, 2017 Panic attack F41.0 ; Change in vision H53.9 and Light- headed feeling R42 [place] [address] [place] [address] 26349- 5867 Sep, Tremor R25.1 ; Restless legs G25.81 and History of alcoholism F10.21 IMMUNIZATIONS No Known Immunizations SOCIAL HISTORY Never Assessed REASON FOR VISIT Eye Exam PLAN OF CARE VITAL SIGNS MEDICATIONS No Known Medications RESULTS No Results PROCEDURES No Known procedures INSTRUCTIONS MEDICATIONS ADMINISTERED No Known Medications MEDICAL (GENERAL) HISTORY Type Description Date Medical History High cholesterol Medical History Anxiety/ Panic attacks Medical History Major depression Medical History heart disease Surgical History 2 c-sections Surgical History stents in heart 11/16/2017 Hospitalization History [facility] 2014 Hospitalization History heart problems 11/16/2017
--- OUTSIDE RECORDS SUMMARY | 2018-03-10 21:07 | XMS REPORT ---
Author Author JOY MURPHY Organization [facility] Address [address] [place] [address] Care Team Providers Care Siding Mechanic Name Role Phone MURPHYEDDYJOY Unavailable PROBLEMS Type Condition ICD9-CM Code MBT08-RR Code Onset Dates Condition Status SNOMED Code Problem History of alcoholism F10.21 Active 614717786 Problem Panic attack F41.0 Active 738556494 Problem Restless legs G25.81 Active 25386136 Problem Current smoker F17.200 Active 80547837 Problem Hyperlipidemia, unspecified hyperlipidemia type E78.5 Active 54487501 Problem Cigarette smoker motivated to quit F17.200 Active 85881246 Problem Coronary artery disease involving [place] coronary artery of [place] heart with angina pectoris I25.119 Active 7656211249717 Problem 3-vessel CAD I25.10 Active 940107070 Problem Status post coronary artery stent placement Z95.5 Active 841822397 ALLERGIES No Information ENCOUNTERS Encounter Location Date Diagnosis [facility] [id number] [place] [address] 14039- 4115 12 Jan, 2018 [facility] [id number] [place] [address] 26902- 7935 Dec, [facility] [id number] [place] [address] 05460- 9921 16 Dec, 2017 Dental examination Z01.20 [facility] [id number] [place] [address] 40872 -1214 16 Dec, 2017 Mouth pain K13.79 [facility] [id number] [place] [address] 86314 -3556 16 Dec, 2017 [facility] [address] [address]- 2548 15 Dec, 2017 [place] [address] [place] [address] 10671- 2509 Dec, [place] [id number] [place] [address] 45784- 6854 Dec, 3-vessel CAD I25.10 ; Hyperlipidemia, unspecified hyperlipidemia type E78.5 and Current smoker F17.200 [place] [id number] [place] [address] 74868- 5126 Dec, Coronary artery disease involving [place] coronary artery of [place] heart with angina pectoris I25.119 [place] [id number] [place] [address] 88694- 2207 Dec, Coronary artery disease involving [place] coronary artery of [place] heart with angina pectoris I25.119 [place] [id number] [place] [address] 91179- 4188 Nov, Blood glucose elevated R73.9 [place] [id number] [place] [address] 93033- 7103 Nov, Blood glucose elevated R73.9 [place] [id number] [place] [address] 45179- 0658 Nov, Coronary artery disease involving [place] coronary artery of [place] heart with angina pectoris I25.119 ; Cigarette smoker motivated to quit F17.200 and Acute pain of left shoulder M25.512 [place] [id number] [place] [address] 26873- 1253 Nov, [facility] [address] [place] [address] 29117- 0710 Nov, [place] [id number] [place] [address] 50058- 2410 Nov, [place] [id number] [place] [address] 38708- 1595 Oct, Encounter for immunization Z23 ; Coronary artery disease involving [place] coronary artery of [place] heart with angina pectoris I25.119 ; Status post coronary artery stent placement Z95.5 and Cigarette smoker motivated to quit F17.200 [facility] [address] [facility] [id number] [address] 18 Oct, 2017 [facility] [address] [facility] [id number] [address] 17 Oct, 2017 Chest pain, unspecified type R07.9 [facility] [id number] [address] 80[address] 04 Oct, 2017 Panic attack F41.0 ; Change in vision H53.9 and Light- headed feeling R42 [facility] [id number] [address] 0[address] Sep, Tremor R25.1 ; Restless legs G25.81 and History of alcoholism F10.21 IMMUNIZATIONS No Known Immunizations SOCIAL HISTORY Never Assessed REASON FOR VISIT dental triage walk-in PLAN OF CARE Activity Details Follow Up kathryn Reason:JEANNINE appt. for dental pain VITAL SIGNS MEDICATIONS Unknown Medications RESULTS No Results PROCEDURES Procedure Date Ordered Result Body Site SCREENING OF A PATIENT Jan 15, 2018 Billing Notes on claim Jan 15, 2018 INSTRUCTIONS MEDICATIONS ADMINISTERED No Known Medications MEDICAL (GENERAL) HISTORY Type Description Date Medical History High cholesterol Medical History Anxiety/ Panic attacks Medical History Major depression Medical History heart disease Surgical History 2 c-sections Surgical History stents in heart 11/16/2017 Hospitalization History [facility] 2014 Hospitalization History heart problems 11/16/2017
--- OUTSIDE RECORDS SUMMARY | 2018-03-10 21:07 | XMS REPORT ---
Author Author MARCO ANTONIO TALLEY Organization [facility] Address [address] [place] [address] Care Team Providers Care Doughmaker Name Role Phone MARCO ANTONIO TALLEY Unavailable PROBLEMS Type Condition ICD9-CM Code TQD10-CM Code Onset Dates Condition Status SNOMED Code Problem Panic attack F41.0 Active 363312017 Problem Status post coronary artery stent placement Z95.5 Active 664619167 Problem Cigarette smoker motivated to quit F17.200 Active 29220880 Problem History of alcoholism F10.21 Active 490567808 Problem Restless legs G25.81 Active 82970716 Problem Meralgia paresthetica of right side G57.11 Active 736067374710481 Problem Paresthesia of hand, bilateral R20.2 Active 358545096 Problem 3-vessel CAD I25.10 Active 450204458 Problem Coronary artery disease involving [place] coronary artery of [place] heart with angina pectoris I25.119 Active 3619412372678 Problem Hyperlipidemia, unspecified hyperlipidemia type E78.5 Active 36871608 Problem Current smoker F17.200 Active 65360892 ALLERGIES No Information ENCOUNTERS Encounter Location Date Diagnosis [facility] [address], [place] [address] Jan, Paresthesia of hand, bilateral R20.2 ; Meralgia paresthetica of right side G57.11 ; Pruritus ani L29.0 ; History of hemorrhoids Z87.19 ; Class 3 severe obesity due to excess calories with serious comorbidity in adult, unspecified BMI E66.01 and BMI 40.0-44.9, adult Z68.41 [facility] [id number], [place] [address]- 7668 17 Jan, 2018 [facility] [id number], [place] [address]- 8042 Jan, [place] [address], [place] [address]- 2049 Dec, [facility] [id number] [place] [address] 78100- 8753 Dec, Dental examination Z01.20 [facility] [id number] [place] [address] 02080 -9646 Dec, Mouth pain K13.79 [facility] [id number] [place] [address] 09260 -4947 Dec, [facility] [id number] [place] [address] 71458- 3364 Dec, [facility] [id number] [place] [address] 19857- 8047 Dec, [facility] [id number] [place] [address] 78010- 7708 Dec, 3-vessel CAD I25.10 ; Hyperlipidemia, unspecified hyperlipidemia type E78.5 and Current smoker F17.200 [place] [id number] [place] [address] 32312- 9199 Dec, Coronary artery disease involving [place] coronary artery of [place] heart with angina pectoris I25.119 [place] [id number] [place] [address] 24851- 7216 Dec, Coronary artery disease involving [place] coronary artery of [place] heart with angina pectoris I25.119 [place] [address] [place] [address] 13803- 2657 Nov, Blood glucose elevated R73.9 [place] [id number] [place] [address] 64481- 3017 Nov, Blood glucose elevated R73.9 [place] [id number] [place] [address] 29307- 4672 Nov, Coronary artery disease involving [place] coronary artery of [place] heart with angina pectoris I25.119 ; Cigarette smoker motivated to quit F17.200 and Acute pain of left shoulder M25.512 [facility] [address], [place] [address]- 4099 12 Nov, 2017 [facility] [id number] [place] [address] 09055- 4686 Nov, [facility] [id number] [place] [address] 44986- 0864 Nov, [place] [id number] [place] [address] 34358- 9344 Oct, Encounter for immunization Z23 ; Coronary artery disease involving [place] coronary artery of [place] heart with angina pectoris I25.119 ; Status post coronary artery stent placement Z95.5 and Cigarette smoker motivated to quit F17.200 [place] [id number] [place] [address] 85819- 3263 18 Oct, 2017 [facility] [id number] [place] [address] 94948 -2070 17 Oct, 2017 Chest pain, unspecified type R07.9 [place] [id number] [place] [address] 65887- 4987 04 Oct, 2017 Panic attack F41.0 ; Change in vision H53.9 and Light- headed feeling R42 [place] [address] [place] [address] 61284- 1875 Sep, Tremor R25.1 ; Restless legs G25.81 and History of alcoholism F10.21 IMMUNIZATIONS No Known Immunizations SOCIAL HISTORY Never Assessed REASON FOR VISIT Requests return call PLAN OF CARE VITAL SIGNS MEDICATIONS No [...]
--- OUTSIDE RECORDS SUMMARY | 2018-03-10 21:07 | XMS REPORT ---
Author Author MARCO ANTONIO TALLEY Organization [facility] Address [address] [place] [address] Care Team Providers Care Remittance Clerk Name Role Phone MARCO ANTONIO TALLEY Unavailable PROBLEMS Type Condition ICD9-CM Code UTK88-CM Code Onset Dates Condition Status SNOMED Code Problem Panic attack F41.0 Active 960972834 Problem Status post coronary artery stent placement Z95.5 Active 454345757 Problem Cigarette smoker motivated to quit F17.200 Active 31926825 Problem History of alcoholism F10.21 Active 181041123 Problem Restless legs G25.81 Active 13443182 Problem Meralgia paresthetica of right side G57.11 Active 443776008667090 Problem Paresthesia of hand, bilateral R20.2 Active 559492248 Problem 3-vessel CAD I25.10 Active 275090559 Problem Coronary artery disease involving [place] coronary artery of [place] heart with angina pectoris I25.119 Active 3412236348497 Problem Hyperlipidemia, unspecified hyperlipidemia type E78.5 Active 89845374 Problem Current smoker F17.200 Active 63013626 ALLERGIES No Known Allergies ENCOUNTERS Encounter Location Date Diagnosis [facility] [address], [place] [address]- [address] Jan, Paresthesia of hand, bilateral R20.2 ; Meralgia paresthetica of right side G57.11 ; Pruritus ani L29.0 ; History of hemorrhoids Z87.19 ; Class 3 severe obesity due to excess calories with serious comorbidity in adult, unspecified BMI E66.01 and BMI 40.0-44.9, adult Z68.41 [facility] [id number], [place] [address]- 7724 17 Jan, 2018 [facility] [address], [place] [address]- 6410 Jan, [facility] [address], [place] [address]- 6917 Dec, [facility] [id number] [place] [address] 71397- 3499 Dec, Dental examination Z01.20 [facility] [id number] [place] [address] 35128 -6167 16 Dec, 2017 Mouth pain K13.79 [facility] [id number] [place] [address] 04512 -8104 Dec, [facility] [id number] [place] [address] 72901- 8131 Dec, [facility] [id number] [place] [address] 00810- 5494 Dec, [facility] [id number] [place] [address] 31981- 0981 Dec, 3-vessel CAD I25.10 ; Hyperlipidemia, unspecified hyperlipidemia type E78.5 and Current smoker F17.200 [place] [id number] [place] [address] 45506- 0777 Dec, Coronary artery disease involving [place] coronary artery of [place] heart with angina pectoris I25.119 [place] [id number] [place] [address] 20554- 0640 Dec, Coronary artery disease involving [place] coronary artery of [place] heart with angina pectoris I25.119 [facility] [id number] [place] [address] 24763- 4884 Nov, Blood glucose elevated R73.9 [place] [id number] [place] [address] 17393- 5286 Nov, Blood glucose elevated R73.9 [place] [id number] [place] [address] 87054- 7821 Nov, Coronary artery disease involving [place] coronary artery of [place] heart with angina pectoris I25.119 ; Cigarette smoker motivated to quit F17.200 and Acute pain of left shoulder M25.512 [facility] [address] [place] [address] 70141- 6715 12 Nov, 2017 [facility] [id number] [place] [address] 02476- 9409 Nov, [place] [id number] [place] [address] 23874- 8432 Nov, [place] [id number] [place] [address] 47913- 9487 Oct, Encounter for immunization Z23 ; Coronary artery disease involving [place] coronary artery of [place] heart with angina pectoris I25.119 ; Status post coronary artery stent placement Z95.5 and Cigarette smoker motivated to quit F17.200 [place] [id number] [place] [address] 47017- 5954 18 Oct, 2017 [facility] [id number] [place] [address] 10083 -4448 17 Oct, 2017 Chest pain, unspecified type R07.9 [place] [id number] [place] [address] 53998- 0173 04 Oct, 2017 Panic attack F41.0 ; Change in vision H53.9 and Light- headed feeling R42 [place] [id number] [place] [address] 72794- 3025 Sep, Tremor R25.1 ; Restless legs G25.81 and History of alcoholism F10.21 IMMUNIZATIONS No Known Immunizations SOCIAL HISTORY Never Assessed REASON FOR VISIT Hand and Feet pain-twooden,RMA, pt complianing of numbness in both hands and tingling in the right leg an she has itching in her anus with bleeding.and having cold chills everyday PLAN OF CARE Activity Details Follow Up prn Reason: VITAL SIGNS Height 62 in 2018-02-17 Weight 222.6 lbs 2018-02-17 Temperature 98.3 degrees Fahrenheit 2018-02-17 Heart Rate 79 bpm 2018-02-17 Respiratory Rate 20 2018-02-17 Oximetry on room air:96 % 2018-02-17 BMI 40.71 kg/m2 2018-02-17 Blood pressure systolic 100 mmHg 2018-02-17 Blood pressure diastolic 64 mmHg 2018-02-17 MEDICATIONS Medication Instructions Dosage Frequency Start Date End Date Duration Status Remeron 15 MG Orally Once a day 1 tablet at bedtime 24h Oct, Active Repatha 140 MG/ML 1 ml 30 day(s) Active Gabapentin 300 MG Orally 3 times a day 1 capsule 8h Oct, Active Atorvastatin Calcium 80 MG Orally Once a day 1 tablet 24h 30 day(s) Active Hydrocortisone Law-Pramoxine 2.5-1 % Rectal Three times a day 1 application to affected area as needed 8h Jan, 30 days Active Aspirin 81 MG Orally Once a day 1 tablet 24h 30 day(s) Active Lisinopril 5 MG Orally Once a day 1 tablet 24h 30 day(s) Active Metoprolol Succinate 25 MG as directed Active HydrOXYzine HCl 25 MG Orally every 8 hrs 1 tablet as needed 8h 30 day (s) Active Paxil 40 MG Orally Once a day 1 tablet in the morning 24h 30 day(s) Active Ticagrelor 90 MG Orally Twice a day 1 tablet 12h 30 day(s) Active RESULTS No Results PROCEDURES No Known [...]
--- OUTSIDE RECORDS SUMMARY | 2018-03-10 21:08 | XMS REPORT ---
Author Author MARCO ANTONIO TALLEY Organization [facility] Address [address] [place] [address] Care Team Providers Care Engineering Professor Name Role Phone MARCO ANTONIO TALLEY Unavailable PROBLEMS Type Condition ICD9-CM Code WHS37-CH Code Onset Dates Condition Status SNOMED Code Problem Coronary artery disease involving alutiiq coronary artery of alutiiq heart with angina pectoris I25.119 Active 1125080368117 Problem Status post coronary artery stent placement Z95.5 Active 402980168 Problem Restless legs G25.81 Active 13190883 Problem History of alcoholism F10.21 Active 350422082 Problem Cigarette smoker motivated to quit F17.200 Active 08225462 Problem Panic attack F41.0 Active 036990195 ALLERGIES No Information ENCOUNTERS Encounter Location Date Diagnosis [facility] [address] [place] [address] 51412- 4321 Dec, Coronary artery disease involving alutiiq coronary artery of alutiiq heart with angina pectoris I25.119 [place] [address] [place] [address] 48524- 9309 Dec, Coronary artery disease involving al[place]q coronary artery of alutiiq heart with angina pectoris I25.119 [place] [address] [place] [address] 41894- 9352 Nov, Blood glucose elevated R73.9 [facility] [address] [id number], [place] [address] 3[address] Nov, Blood glucose elevated R73.9 [place] [address] [place] [address] 75354- 8335 Nov, Coronary artery disease involving alutiiq coronary artery of alutiiq heart with angina pectoris I25.119 ; Cigarette smoker motivated to quit F17.200 and Acute pain of left shoulder M25.512 [place] [address], [place] [address] Nov, [facility] [address], [place] [address] 3[address] Nov, [facility] [address] [place] [id number] [place] [address] 89063- 8426 Nov, [place] [address] [address] [id number] [place] [address] 16630- 5092 Oct, Encounter for immunization Z23 ; Coronary artery disease involving alutiiq coronary artery of alutiiq heart with angina pectoris I25.119 ; Status post coronary artery stent placement Z95.5 and Cigarette smoker motivated to quit F17.200 [place] [address] [place] [id number] [place] [address] 92771- 8192 18 Oct, 2017 [facility] [id number] [place] [address] 57477 -4094 17 Oct, 2017 Chest pain, unspecified type R07.9 [place] [address] [place] [address] 71437- 3644 04 Oct, 2017 Panic attack F41.0 ; Change in vision H53.9 and Light- headed feeling R42 [place] [address], [place] [address] 5[address] Sep, Tremor R25.1 ; Restless legs G25.81 and History of alcoholism F10.21 IMMUNIZATIONS No Known Immunizations SOCIAL HISTORY Never Assessed REASON FOR VISIT Lab (walk-in) PLAN OF CARE Activity Details Pending Test LIPID PANEL Pending Test CMP VITAL SIGNS MEDICATIONS Unknown Medications RESULTS No Results PROCEDURES Procedure Date Ordered Result Body Site LIPID PANEL Dec 31, 2017 COMPREHEN METABOLIC PANEL Dec 31, 2017 INSTRUCTIONS MEDICATIONS ADMINISTERED No Known Medications MEDICAL (GENERAL) HISTORY Type Description Date Medical History High cholesterol Medical History Anxiety/ Panic attacks Medical History Major depression Medical History heart disease Surgical History 2 c-sections Surgical History stent 11/16/2017 Hospitalization History [facility] 2014 Hospitalization History heart problems 11/16/2017
--- OUTSIDE RECORDS SUMMARY | 2018-03-10 21:08 | XMS REPORT ---
Author Author WILL BENZ Organization [facility] Address [address] [place] [address] Care Team Providers Care Courtroom Reporter Name Role Phone WILL BENZ Unavailable PROBLEMS Type Condition ICD9-CM Code VIP54-QI Code Onset Dates Condition Status SNOMED Code Problem Coronary artery disease involving saxman coronary artery of saxman heart with angina pectoris I25.119 Active 2680741587873 Problem Status post coronary artery stent placement Z95.5 Active 938103131 Problem Restless legs G25.81 Active 84091134 Problem History of alcoholism F10.21 Active 579023023 Problem Cigarette smoker motivated to quit F17.200 Active 04495287 Problem Panic attack F41.0 Active 712096655 ALLERGIES No Information ENCOUNTERS Encounter Location Date Diagnosis [place] [address] [place] [id number] [place] [address] 51595- 2645 Nov, Blood glucose elevated R73.9 [place] [address] [place] [address] [id number] [place] [address] 67762- 3713 Nov, Blood glucose elevated R73.9 [place] [address] [place] [id number], [place] [address] 2837 Nov, [place] [address] [place] [address] [id number] [place] [address] 62210- 5265 Nov, Coronary artery disease involving saxman coronary artery of saxman heart with angina pectoris I25.119 ; Cigarette smoker motivated to quit F17.200 and Acute pain of left shoulder M25.512 [facility] [id number] [place] [address] 56617- 2248 Nov, [place] [address] [place] [id number] [place] [address] 32787- 6867 Nov, [place] [address] [place] [id number], [place] [address]- 8263 08 Nov, 2017 [facility] [address] [place] [address] 92425- 5960 Oct, Encounter for immunization Z23 ; Coronary artery disease involving saxman coronary artery of saxman heart with angina pectoris I25.119 ; Status post coronary artery stent placement Z95.5 and Cigarette smoker motivated to quit F17.200 [facility] [address] [place] [id number] [place] [address] 07448- 4650 18 Oct, 2017 [facility] [id number] [place] [address] 95282 -9193 17 Oct, 2017 Chest pain, unspecified type R07.9 [place] [address] [place] [address] [address] [place] [address] 56605- 2890 04 Oct, 2017 Panic attack F41.0 ; Change in vision H53.9 and Light- headed feeling R42 [place] [address] [place] [address] 21680- 2514 Sep, Tremor R25.1 ; Restless legs G25.81 and History of alcoholism F10.21 IMMUNIZATIONS No Known Immunizations SOCIAL HISTORY Never Assessed REASON FOR VISIT Lab PLAN OF CARE VITAL SIGNS MEDICATIONS Unknown [...]
--- OUTSIDE RECORDS SUMMARY | 2018-03-10 21:08 | XMS REPORT ---
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 Active 8813206378130 Problem Status post coronary artery stent placement Z95.5 Active 174411683 Problem Restless legs G25.81 Active 75544705 Problem History of alcoholism F10.21 Active 097495019 Problem Cigarette smoker motivated to quit F17.200 Active 38586536 Problem Panic attack F41.0 Active 818146033 ALLERGIES No Information ENCOUNTERS Encounter Location Date Diagnosis [place] [address] [place] [address] [id number] [place] [address] 85455- 8025 Nov, Blood glucose elevated R73.9 [place] [address] 83098- 6614 Nov, Blood glucose elevated R73.9 [place] [id number] [place] [address] 64487- 5973 Nov, [place] [address] [address] [id number] [place] [address] 12699- 2643 Nov, 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 ; Cigarette smoker motivated to quit F17.200 and Acute pain of left shoulder M25.512 [facility] [id number] [place] [address] 82570- 4207 Nov, [place] [address] [address] [id number] [place] [address] 76720- 9059 Nov, [place] [address] [place] [address]- 2089 08 Nov, 2017 [facility] [address] [place] [address] 78080- 3068 Oct, Encounter for immunization Z23 ; 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 ; Status post coronary artery stent placement Z95.5 and Cigarette smoker motivated to quit F17.200 [facility] [id number] [place] [address] 97845- 6731 18 Oct, 2017 [facility] [id number] [place] [address] 61859 -8462 17 Oct, 2017 Chest pain, unspecified type R07.9 [place] [address] [place] [address] 65586- 3603 04 Oct, 2017 Panic attack F41.0 ; Change in vision H53.9 and Light- headed feeling R42 [facility] [address] [place] [address] 59962- 0853 Sep, Tremor R25.1 ; Restless legs G25.81 and History of alcoholism F10.21 IMMUNIZATIONS No Known Immunizations SOCIAL HISTORY Never Assessed REASON FOR VISIT Lab PLAN OF CARE Activity Details Pending Test A1C (IN HOUSE) VITAL SIGNS MEDICATIONS Unknown Medications RESULTS No Results PROCEDURES Procedure Date Ordered Result Body Site GLYCATED HEMOGLOBIN TEST Dec 25, 2017 INSTRUCTIONS MEDICATIONS ADMINISTERED No Known Medications MEDICAL (GENERAL) HISTORY Type Description Date Medical History High cholesterol Medical History Anxiety/ Panic attacks Medical History Major depression Medical History heart disease Surgical History 2 c-sections Surgical History stent 11/16/2017 Hospitalization History [facility] 2014 Hospitalization History heart problems 11/16/2017
--- OUTSIDE RECORDS SUMMARY | 2018-03-10 21:08 | XMS REPORT ---
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 Active 2629407842958 Problem Status post coronary artery stent placement Z95.5 Active 092166248 Problem Restless legs G25.81 Active 89037853 Problem History of alcoholism F10.21 Active 087039381 Problem Cigarette smoker motivated to quit F17.200 Active 93687275 Problem Panic attack F41.0 Active 028929255 ALLERGIES No Information ENCOUNTERS Encounter Location Date Diagnosis [facility] [address] [place] [address] 67962- 8743 Dec, 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 [place] [address] [place] [address] 30668- 1611 Dec, 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 [place] [address] [place] [address] 97135- 5777 Nov, Blood glucose elevated R73.9 [facility] [id number], [place] [address]- 0870 Nov, Blood glucose elevated R73.9 [place] [address] [place] [address] 86898- 5290 Nov, 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 ; Cigarette smoker motivated to quit F17.200 and Acute pain of left shoulder M25.512 [place] [address], [place] [address]- 7726 Nov, [facility] [address] [place] [address] 56147- 5081 Nov, [place] [address] [place] [address] [id number] [place] [address] 13597- 9094 Nov, [place] [address] [place] [address] [id number] [place] [address] 09188- 9409 Oct, Encounter for immunization Z23 ; 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 ; Status post coronary artery stent placement Z95.5 and Cigarette smoker motivated to quit F17.200 [place] [address] [address] [id number] [place] [address] 66419- 0295 18 Oct, 2017 [facility] [id number] [place] [address] 21594 -4519 17 Oct, 2017 Chest pain, unspecified type R07.9 [place] [address] [address] [id number] [place] [address] 30116- 9893 04 Oct, 2017 Panic attack F41.0 ; Change in vision H53.9 and Light- headed feeling R42 [place] [address], [place] [address]- 4809 Sep, Tremor R25.1 ; Restless legs G25.81 [...]
--- OUTSIDE RECORDS SUMMARY | 2018-03-10 21:08 | XMS REPORT ---
Author Author MARCO ANTONIO TALLEY Organization [facility] Address [address] [place] [address] Care Team Providers Care Trauma Therapist Name Role Phone MARCO ANTONIO TALLEY Unavailable PROBLEMS Type Condition ICD9-CM Code JSB04-NN Code Onset Dates Condition Status SNOMED Code Problem History of alcoholism F10.21 Active 363207889 Problem Panic attack F41.0 Active 993564888 Problem Restless legs G25.81 Active 27150350 Problem Current smoker F17.200 Active 71583109 Problem Hyperlipidemia, unspecified hyperlipidemia type E78.5 Active 86450188 Problem Cigarette smoker motivated to quit F17.200 Active 95471377 Problem 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 Active 4699764672130 Problem 3-vessel CAD I25.10 Active 194039160 Problem Status post coronary artery stent placement Z95.5 Active 913962175 ALLERGIES No Information ENCOUNTERS Encounter Location Date Diagnosis [facility] [id number] [place] [address] 75207- 2030 12 Jan, 2018 [facility] [id number] [place] [address] 24354- 8320 21 Dec, 2017 [facility] [id number] [place] [address] 54536- 3097 16 Dec, 2017 Dental examination Z01.20 [facility] [id number] [place] [address] 30607 -0295 16 Dec, 2017 Mouth pain K13.79 [facility] [id number] [place] [address] 34502 -0232 16 Dec, 2017 [facility] [id number] [place] [address] 07425- 3894 15 Dec, 2017 [facility] [address] [address]- 7948 Dec, [facility] [address] [id number] [place] [address] 31120- 9756 Dec, 3-vessel CAD I25.10 ; Hyperlipidemia, unspecified hyperlipidemia type E78.5 and Current smoker F17.200 [facility] [address] [address]- 0619 Dec, 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 [place] [address] [address]- 1487 Dec, 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 [place] [address] [place] [id number] [address]- 5166 Nov, Blood glucose elevated R73.9 [place] [id number] [place] [address] 79395- 5509 Nov, Blood glucose elevated R73.9 [place] [address] [place] [address] [id number] [place] [address] 05155- 4360 Nov, 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 ; Cigarette smoker motivated to quit F17.200 and Acute pain of left shoulder M25.512 [place] [address] [address]- 1446 Nov, [facility] [address], [place] [address]- 9922 Nov, [facility] [address], [place] [address]- 0276 Nov, [place] [address] [address]- 1653 Oct, Encounter for immunization Z23 ; 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 ; Status post coronary artery stent placement Z95.5 and Cigarette smoker motivated to quit F17.200 [facility] [address] [facility] [id number] [address]- 3102 18 Oct, 2017 [facility] [id number] [address] -2914 17 Oct, 2017 Chest pain, unspecified type R07.9 [facility] [id number] [address]- 4732 04 Oct, 2017 Panic attack F41.0 ; Change in vision H53.9 and Light- headed feeling R42 [facility] [address] [address]- 5766 Sep, Tremor R25.1 ; Restless legs G25.81 and History of alcoholism F10.21 IMMUNIZATIONS No Known Immunizations SOCIAL HISTORY Never Assessed REASON FOR VISIT dental appt. PLAN OF CARE VITAL SIGNS MEDICATIONS Unknown [...]
--- OUTSIDE RECORDS SUMMARY | 2018-03-10 21:08 | XMS REPORT ---
Author Author XIANG COTTO [facility] Address [address] [place] [address] Care Team Providers Care Camouflage Assembler Name Role Phone XIANG COTTO Unavailable PROBLEMS Type Condition ICD9-CM Code GAI62-NT Code Onset Dates Condition Status SNOMED Code Problem History of alcoholism F10.21 Active 388038342 Problem Panic attack F41.0 Active 545288263 Problem Restless legs G25.81 Active 03915053 Problem Current smoker F17.200 Active 10731176 Problem Hyperlipidemia, unspecified hyperlipidemia type E78.5 Active 14870034 Problem Cigarette smoker motivated to quit F17.200 Active 82953277 Problem 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 Active 9868364312877 Problem 3-vessel CAD I25.10 Active 500020059 Problem Status post coronary artery stent placement Z95.5 Active 945481482 ALLERGIES No Known Allergies ENCOUNTERS Encounter Location Date Diagnosis [place] [address] 11667- 6105 Dec, [facility] [address] 93131- 5154 16 Dec, 2017 Dental examination Z01.20 [facility] [id number] [place] [address] 57298 -1229 Dec, Mouth pain K13.79 [facility] [address] 97186 -1381 16 Dec, 2017 [facility] [address] 83849- 5550 15 Dec, 2017 [facility] [address] 29808- 1326 Dec, [place] [address], [place] [address]- 8884 Dec, 3-vessel CAD I25.10 ; Hyperlipidemia, unspecified hyperlipidemia type E78.5 and Current smoker F17.200 [facility] [address], [place] [address]- 0981 Dec, 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 [place] [address] [place] [address] [id number] [place] [address] 08693- 6314 Dec, 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 [place] [address] [place] [address] [id number] [place] [address] 70526- 7838 Nov, Blood glucose elevated R73.9 [place] [address] [place] [address] [id number] [place] [address] 73090- 8152 Nov, Blood glucose elevated R73.9 [place] [address] [address] [address] [place] [address] 10241- 4799 Nov, 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 ; Cigarette smoker motivated to quit F17.200 and Acute pain of left shoulder M25.512 [place] [address] [place] [address] 46791- 0021 Nov, [place] [address], [place] [address]- 9183 Nov, [place] [address] [place] [id number] [place] [address] 51502- 1140 Nov, [place] [address] [place] [address] [id number] [place] [address] 05298- 9648 Oct, Encounter for immunization Z23 ; 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 [id number] [address] Oct, Chest pain, unspecified type R07.9 [facility] [address] [facility] [id number] [address]- 4083 Oct, Panic attack F41.0 ; Change in vision H53.9 and Light- headed feeling R42 [facility] [address] [facility] [id number] [address]- 5880 Sep, Tremor R25.1 ; Restless legs G25.81 and History of alcoholism F10.21 IMMUNIZATIONS No Known Immunizations SOCIAL HISTORY Never Assessed REASON FOR VISIT dental pain on left upper back side for 2 days. [email or web address] PLAN OF CARE Activity Details Follow Up prn Reason: VITAL SIGNS Height 62 in 2018-01-15 Weight 217.0 lbs 2018-01-15 Temperature 97.6 degrees Fahrenheit 2018-01-15 Heart Rate 80 bpm 2018-01-15 Respiratory Rate 20 2018-01-15 BMI 39.69 kg/m2 2018-01-15 Blood pressure systolic 128 mmHg 2018-01-15 Blood pressure diastolic 78 mmHg 2018-01-15 MEDICATIONS Medication Instructions Dosage Frequency Start Date End Date Duration Status Metoprolol Succinate 25 MG as directed Active Remeron 15 MG Orally Once a day 1 tablet at bedtime 24h Oct, Active Aspirin 81 MG Orally Once a day 1 tablet 24h 30 day(s) Active Paxil 40 MG Orally Once a day 1 tablet in the morning 24h 30 day(s) Active Ticagrelor 90 MG Orally Twice a day 1 tablet 12h 30 day(s) Active Lisinopril 5 MG Orally Once a day 1 tablet 24h 30 day(s) Active HydrOXYzine HCl 25 MG Orally every 8 hrs 1 tablet as needed 8h 30 day (s) Active Gabapentin 300 MG Orally 3 times a day 1 capsule 8h Oct, Active Amoxicillin 875 MG Orally every 12 hrs 1 tablet 12h 16 Dec, 2017 10 day (s) Active Atorvastatin Calcium 80 MG Orally Once a day 1 tablet 24h 30 day(s) Active RESULTS No Results PROCEDURES [...]
--- OUTSIDE RECORDS SUMMARY | 2018-03-10 21:08 | XMS REPORT ---
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 Active 2025840469256 Problem Status post coronary artery stent placement Z95.5 Active 241815073 Problem Restless legs G25.81 Active 31536531 Problem History of alcoholism F10.21 Active 431017900 Problem Cigarette smoker motivated to quit F17.200 Active 59441319 Problem Panic attack F41.0 Active 579496689 ALLERGIES No Known Allergies ENCOUNTERS Encounter Location Date Diagnosis [facility] [id number] [place] [address] 20357- 3304 Nov, [facility] [id number] [place] [address] 64642- 3585 Nov, 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 ; Cigarette smoker motivated to quit F17.200 and Acute pain of left shoulder M25.512 [facility] [id number] [place] [address] 26927- 8892 Nov, [facility] [id number] [place] [address] 06024- 6984 Nov, [facility] [id number] [place] [address] 53398- 1873 Nov, [place] [address] [place] [address] 90120- 0720 Oct, Encounter for immunization Z23 ; 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 ; Status post coronary artery stent placement Z95.5 and Cigarette smoker motivated to quit F17.200 [facility] [address] [address] Oct, [facility] [address] [address] 17 Oct, 2017 Chest pain, unspecified type R07.9 [facility] [id number] [place] [address] 95610- 9494 04 Oct, 2017 Panic attack F41.0 ; Change in vision H53.9 and Light- headed feeling R42 [facility] [id number] [place] [address] 67244- 6229 Sep, Tremor R25.1 ; Restless legs G25.81 and History of alcoholism F10.21 IMMUNIZATIONS No Known Immunizations SOCIAL HISTORY Never Assessed REASON FOR VISIT CAD F/U-junie,RMA, pt also want to discuss about getting on chantix, she is also having pain on her left side going down her fingers and in her neck PLAN OF CARE Activity Details Follow Up 3 Months Reason: Pending Test CMP Future/Pending Procedure ROUTINE VENIPUNCTURE VITAL SIGNS Height 62 in 2017-12-11 Weight 207.4 lbs 2017-12-11 Temperature 98.8 degrees Fahrenheit 2017-12-11 Heart Rate 75 bpm 2017-12-11 Respiratory Rate 20 2017-12-11 Oximetry on room air:98 % 2017-12-11 BMI 37.93 kg/m2 2017-12-11 Blood pressure systolic 94 mmHg 2017-12-11 Blood pressure diastolic 62 mmHg 2017-12-11 MEDICATIONS Medication Instructions Dosage Frequency Start Date End Date Duration Status Remeron 15 MG Orally Once a day 1 tablet at bedtime 24h Oct, Active Gabapentin 300 MG Orally 3 times a day 1 capsule 8h Oct, Active HydrOXYzine HCl Active Atorvastatin Calcium 80 MG Orally Once a day 1 tablet 24h 30 day(s) Active Viibryd 10 MG Active Metoprolol Succinate 25 MG as directed Active Lisinopril 5 MG Orally Once a day 1 tablet 24h 30 day(s) Active Aspirin 81 MG Orally Once a day 1 tablet 24h 30 day(s) Active Ticagrelor 90 MG Orally Twice a day 1 tablet 12h 30 day(s) Active RESULTS No Results PROCEDURES Procedure Date Ordered Result Body Site COMPREHEN METABOLIC PANEL Dec 11, 2017 VENIPUNCT, ROUTINE* Dec 11, 2017 INSTRUCTIONS MEDICATIONS ADMINISTERED No Known Medications MEDICAL (GENERAL) HISTORY Type Description Date Medical History High cholesterol Medical History Anxiety/ Panic attacks Medical History Major depression Medical History heart disease Surgical History 2 c-sections Surgical History stent 11/16/2017 Hospitalization History [facility] 2014 Hospitalization History heart problems 11/16/2017
--- OUTSIDE RECORDS SUMMARY | 2018-03-10 21:08 | XMS REPORT ---
Author Author MARCO ANTONIO TALLEY Organization [facility] Address [address] [place] [address] Care Team Providers Care Laundry Routeman Name Role Phone MARCO ANTONIO TALLEY Unavailable PROBLEMS Type Condition ICD9-CM Code ENO32-JI Code Onset Dates Condition Status SNOMED Code Problem History of alcoholism F10.21 Active 010053443 Problem Panic attack F41.0 Active 804608978 Problem Restless legs G25.81 Active 90764804 Problem Current smoker F17.200 Active 56939462 Problem Hyperlipidemia, unspecified hyperlipidemia type E78.5 Active 03051376 Problem Cigarette smoker motivated to quit F17.200 Active 09726140 Problem 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 Active 5536371651866 Problem 3-vessel CAD I25.10 Active 669277287 Problem Status post coronary artery stent placement Z95.5 Active 314026667 ALLERGIES No Information ENCOUNTERS Encounter Location Date Diagnosis [facility] [id number] [place] [address] 90605- 5609 Dec, [facility] [address] [place] [address] 15308- 5359 Dec, 3-vessel CAD I25.10 ; Hyperlipidemia, unspecified hyperlipidemia type E78.5 and Current smoker F17.200 [facility] [id number] [place] [address] 40595- 5810 Dec, 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 [facility] [address] [place] [address] 00273- 6424 Dec, 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 [facility] [address] [place] [address] 20402- 5763 Nov, Blood glucose elevated R73.9 [facility] [id number] [place] [address] 00159- 8017 Nov, Blood glucose elevated R73.9 [place] [id number] [place] [address] 96903- 4115 Nov, 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 ; Cigarette smoker motivated to quit F17.200 and Acute pain of left shoulder M25.512 [place] [id number] [place] [address] 23544- 9807 Nov, [place] [id number] [place] [address] 13120- 7007 Nov, [place] [id number] [place] [address] 85236- 6574 Nov, [place] [id number] [place] [address] 97503- 6147 Oct, Encounter for immunization Z23 ; 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 ; Status post coronary artery stent placement Z95.5 and Cigarette smoker motivated to quit F17.200 [place] [id number] [place] [address] 95374- 7244 18 Oct, 2017 [facility] [id number] [place] [address] 22206 -6257 17 Oct, 2017 Chest pain, unspecified type R07.9 [place] [id number] [place] [address] 98658- 7480 04 Oct, 2017 Panic attack F41.0 ; Change in vision H53.9 and Light- headed feeling R42 [place] [id number] [place] [address] 13168- 8092 Sep, Tremor R25.1 ; Restless legs G25.81 and History of alcoholism F10.21 IMMUNIZATIONS No Known Immunizations SOCIAL HISTORY Never Assessed REASON FOR VISIT labs PLAN OF CARE VITAL SIGNS MEDICATIONS Unknown [...]
--- OUTSIDE RECORDS SUMMARY | 2018-03-10 21:08 | XMS REPORT ---
Author Author MARCO ANTONIO TALLEY Organization [facility] Address [address] [place] [address] Care Team Providers Care Community Relations Officer Name Role Phone MARCO ANTONIO TALLEY Unavailable PROBLEMS Type Condition ICD9-CM Code WST71-SG Code Onset Dates Condition Status SNOMED Code Problem History of alcoholism F10.21 Active 538213893 Problem Panic attack F41.0 Active 319711851 Problem Restless legs G25.81 Active 09252270 Problem Current smoker F17.200 Active 38193831 Problem Hyperlipidemia, unspecified hyperlipidemia type E78.5 Active 58963611 Problem Cigarette smoker motivated to quit F17.200 Active 53863723 Problem 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5 and Current smoker F17.200 [facility] [id number] [place] [address] 62448- 1227 Dec, 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 [facility] [id number] [place] [address] 38980- 5981 Dec, 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 [facility] [address] [place] [address] 19906- 0772 Nov, Blood glucose elevated R73.9 [facility] [id number] [place] [address] 45528- 4031 Nov, Blood glucose elevated R73.9 [facility] [id number] [place] [address] 36087- 4095 Nov, 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 ; Cigarette smoker motivated to quit F17.200 and Acute pain of left shoulder M25.512 [place] [address] 71798- 8496 Nov, [facility] [id number] [place] [address] 99679- 1624 Nov, [place] [address] 14206- 2381 Nov, [place] [id number] [place] [address] 69312- 6815 Oct, Encounter for immunization Z23 ; 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 ; Status post coronary artery stent placement Z95.5 and Cigarette smoker motivated to quit F17.200 [facility] [id number] [place] [address] 27521- 7517 Oct, [facility] [id number] [place] [address] 07860 -0306 17 Oct, 2017 Chest pain, unspecified type R07.9 [facility] [address] 92775- 0426 04 Oct, 2017 Panic attack F41.0 ; Change in vision H53.9 and Light- headed feeling R42 [facility] [address] [place] [address] 75881- 6206 Sep, Tremor R25.1 ; Restless legs G25.81 and History of alcoholism F10.21 IMMUNIZATIONS No Known Immunizations SOCIAL HISTORY Never Assessed REASON FOR VISIT Lab results PLAN OF CARE VITAL SIGNS MEDICATIONS Unknown [...]
--- OUTSIDE RECORDS SUMMARY | 2018-03-10 21:08 | XMS REPORT ---
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 Name Role Phone MARCO ANTONIO TALLEY Unavailable PROBLEMS Type Condition ICD9-CM Code JSO19-SJ Code Onset Dates Condition Status SNOMED Code Problem History of alcoholism F10.21 Active 510663212 Problem Panic attack F41.0 Active 181621739 Problem Restless legs G25.81 Active 18229882 Problem Current smoker F17.200 Active 76582721 Problem Hyperlipidemia, unspecified hyperlipidemia type E78.5 Active 07166740 Problem Cigarette smoker motivated to quit F17.200 Active 02044887 Problem 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 Active 4355826921750 Problem 3-vessel CAD I25.10 Active 389017952 Problem Status post coronary artery stent placement Z95.5 Active 780993086 ALLERGIES No Information ENCOUNTERS Encounter Location Date Diagnosis [facility] [address] [place] [address] 10621- 4892 Dec, [facility] [address] [place] [address] 23854- 9058 Dec, [facility] [address] [place] [address] 70514- 7442 Dec, [facility] [id number] [place] [address] 28064- 0492 Dec, 3-vessel CAD I25.10 ; Hyperlipidemia, unspecified hyperlipidemia type E78.5 and Current smoker F17.200 [facility] [id number] [place] [address] 02873- 7463 Dec, 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 [facility] [id number] [address]- 4269 Dec, 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 [place] [id number] [place] [address] 14455- 9167 Nov, Blood glucose elevated R73.9 [facility] [id number] [place] [address] 60212- 1644 Nov, Blood glucose elevated R73.9 [place] [id number] [place] [address] 26589- 4171 Nov, 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 ; Cigarette smoker motivated to quit F17.200 and Acute pain of left shoulder M25.512 [place] [id number] [place] [address] 55196- 7902 Nov, [place] [id number] [place] [address] 72983- 1901 Nov, [place] [id number] [place] [address] 30196- 2389 Nov, [place] [id number] [place] [address] 02290- 9110 Oct, Encounter for immunization Z23 ; 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 ; Status post coronary artery stent placement Z95.5 and Cigarette smoker motivated to quit F17.200 [facility] [id number] [place] [address] 00734- 1725 18 Oct, 2017 [facility] [id number] [place] [address] 15524 -1692 17 Oct, 2017 Chest pain, unspecified type R07.9 [facility] [id number] [place] [address] 52120- 4208 04 Oct, 2017 Panic attack F41.0 ; Change in vision H53.9 and Light- headed feeling R42 [place] [id number] [address]- 7838 Sep, Tremor R25.1 ; Restless legs G25.81 and History of alcoholism F10.21 IMMUNIZATIONS No Known Immunizations SOCIAL HISTORY Never Assessed REASON FOR VISIT Medication question PLAN OF CARE VITAL SIGNS MEDICATIONS Unknown [...]
--- OUTSIDE RECORDS SUMMARY | 2018-03-10 21:09 | XMS REPORT ---
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 Active 6743059192088 Problem Status post coronary artery stent placement Z95.5 Active 090907335 Problem Restless legs G25.81 Active 46989272 Problem History of alcoholism F10.21 Active 725109454 Problem Cigarette smoker motivated to quit F17.200 Active 67942892 Problem Panic attack F41.0 Active 757214741 ALLERGIES No Information ENCOUNTERS Encounter Location Date Diagnosis [place] [id number] [place] [address] 92822- 5226 17 Nov, 2017 [place] [id number] [place] [address] 20677- 2149 Nov, 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 ; Cigarette smoker motivated to quit F17.200 and Acute pain of left shoulder M25.512 [place] [id number] [place] [address] 77547- 1987 Nov, [facility] [id number] [place] [address] 88403- 5639 Nov, [facility] [address] 76471- 2405 Nov, [place] [id number] [place] [address] 43940- 9152 Oct, Encounter for immunization Z23 ; 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 ; Status post coronary artery stent placement Z95.5 and Cigarette smoker motivated to quit F17.200 [facility] [address], [place] [address]- 2675 18 Oct, 2017 [facility] [address], [place] [address] -9193 17 Oct, 2017 Chest pain, unspecified type R07.9 [facility] [address] [place] [address] 02204- 6202 04 Oct, 2017 Panic attack F41.0 ; Change in vision H53.9 and Light- headed feeling R42 [facility] [address] [place] [address] 03760- 6189 Sep, Tremor R25.1 ; Restless legs G25.81 and History of alcoholism F10.21 IMMUNIZATIONS No Known Immunizations SOCIAL HISTORY Never Assessed REASON FOR VISIT Requests return call PLAN OF CARE VITAL SIGNS MEDICATIONS Unknown [...]
--- OUTSIDE RECORDS SUMMARY | 2018-03-10 21:09 | XMS REPORT ---
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 Active 0845668143167 Problem Status post coronary artery stent placement Z95.5 Active 595586829 Problem Restless legs G25.81 Active 41956086 Problem History of alcoholism F10.21 Active 779886334 Problem Cigarette smoker motivated to quit F17.200 Active 47320989 Problem Panic attack F41.0 Active 724971444 ALLERGIES No Information ENCOUNTERS Encounter Location Date Diagnosis [place] [id number] [place] [address] 73284- 2578 17 Nov, 2017 [place] [id number] [place] [address] 38864- 2295 Nov, 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 ; Cigarette smoker motivated to quit F17.200 and Acute pain of left shoulder M25.512 [place] [id number] [place] [address] 90376- 3779 Nov, [facility] [id number] [place] [address] 68305- 0607 Nov, [facility] [address] 55179- 8243 Nov, [place] [id number] [place] [address] 07632- 9920 Oct, Encounter for immunization Z23 ; 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 ; Status post coronary artery stent placement Z95.5 and Cigarette smoker motivated to quit F17.200 [facility] [address] [address] 18 Oct, 2017 [facility] [address] [place] [address]109 17 Oct, 2017 Chest pain, unspecified type R07.9 [facility] [address] [place] [address] 70690- 7101 04 Oct, 2017 Panic attack F41.0 ; Change in vision H53.9 and Light- headed feeling R42 [facility] [address] [place] [address] 31002- 1343 Sep, Tremor R25.1 ; Restless legs G25.81 [...]
[2018-03-10] MEDS ORDERED: methylPREDNISolone 125 MG (Solu-MEDROL) VIAL IM ONE (21:45)
[2018-03-10] MEDS ORDERED: PREGABALIN 75 MG (LYRICA) CAP PO ONE (21:45)
--- NOTE | 2018-03-10 21:47 | ED Upper Extremity ---
General Chief Complaint: Upper Extremity Stated Complaint: PAIN IN BOTH HANDS Nursing Triage Note: Pt arrived with bilateral hand, finger, wrist and feet pain (numbness) for the past two week. Pt stated that her doctor thinks it is carpal tunnel. Pt has taken naproxen, tylenol and ibuprofren today. Nursing Sepsis Screen: No Definite Risk Source: patient History of Present Illness Date Seen by Provider: Mar 10, 2018 Time Seen by Provider: 21:30 Initial Comments C/O BILATERAL HAND PAIN AND NUMBNESS/TINGLING X 2 WEEKS NO INJURY STATES HE WAS SEEN AT [facility] WEEKS AGO FOR THIS PROBLEM AND WAS DX WITH CARPAL TUNNEL AND GIVEN BILATERAL SPLINTS TO WEAR PT HAS NOT BEEN WEARING THEM -STATES SHE WAS TOLD TO WEAR THEM AT NIGHT, BUT STATES SHE THINKS IT MAKES SYMPTOMS WORSE PT STATES SHE HAS A FOLLOW UP APPOINTMENT THIS Thursday03/12/18 TO HAVE INJECTIONS FOR CARPAL TUNNEL IN BOTH WRISTS NO TESTS HAVE BEEN ORDERED AT THIS TIME PT STATES PAIN IS WORSE AND SO CAME TO ER PT HAS TAKEN 2 NAPROXEN AT 0700, 2 IBUPROFEN AT NOON, AND 2 TYLENOL AT 1600 WITHOUT RELIEF DENIES ANY HISTORY OF SIMILAR DENIES HISTORY OF DIABETES DENIES NECK PAIN STATES TOUCHING COLD THINGS MAKES SYMPTOMS WORSE AND STATES WHEN SHE TRIES TO HOLD THINGS, HER HANDS GO NUMB STATES SHE STARTED A NEW J[employer] PT HAS HISTORY OF CAD WITH STENTS X 2 IN 2017. PCP: 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 FRIAS Allergies and Home Medications Allergies Coded Allergies: No Known Drug Allergies (Unverified , 11/16/17) Home Medications Aspirin 81 Mg Tab.chew, 81 MG PO DAILY Prescribed by: Genna FRIAS on 11/19/172207 Atorvastatin Calcium 80 Mg Tablet, 80 MG PO DAILY, (Reported) Gabapentin 300 Mg Capsule, 300 MG PO TID, (Reported) Hydroxyzine Pamoate 25 Mg Capsule, 25 MG PO BID PRN for ANXIETY, (Reported) Lisinopril 5 Mg Tablet, 5 MG PO DAILY Prescribed by: Genna FRIAS on 11/19/172209 Metoprolol Succinate 25 Mg Tab.er.24h, 25 MG PO DAILY Prescribed by: Genna FRIAS on 11/19/172208 Mirtazapine 15 Mg Tablet, 15 MG PO HS, (Reported) Ticagrelor 90 Mg Tablet, 90 MG PO BID Prescribed by: Genna FRIAS on 11/19/172207 Vilazodone Hydrochloride 20 Mg Tablet, 20 MG PO DAILY, (Reported) Patient Home Medication List Home Medication List Reviewed: Yes Review of Systems Constitutional: no symptoms reported Respiratory: no symptoms reported Cardiovascular: no symptoms reported Gastrointestinal: no symptoms reported Musculoskeletal: see HPI Skin: no symptoms reported Psychiatric/Neurological: See HPI Past Vkqbudt-Iyiszh-Myqvjn Hx Patient Social History Alcohol Use: Past History (HISTORY OF ABUSE, CLAIMS NO RECENT USE PER PT ) Recreational Drug Use: No Smoking Status: Current Everyday Smoker Type Used: Cigarettes Recent Foreign Travel: No Contact w/Someone Who Travel: No Recent Infectious Disease Expo: No Recent Hopitalizations: Yes (June 2017 was intubated for alcohol intoxication) Physical Abuse: No Sexual Abuse: No Mistreated: No Fear: No Immunizations Up To Date Tetanus Booster (TDap): Unknown PED Vaccines UTD: Yes Date of Pneumonia Vaccine: Dec 19, 2014 Seasonal Allergies Seasonal Allergies: No Past Medical History Surgeries: Yes ( X 2; CARDIAC CATH WITH STENTS X 2 10/2017) Section, Coronary Stent, Tubal Ligation Respiratory: No Cardiac: Yes Coronary Artery Disease, High Cholesterol, Hypertension Neurological: No (have had a withdraw seizure from alcohol) Last Menstrual Period: Mar 07, 2018 Female Reproductive Disorders: Denies 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 Sexually Transmitted Disease: No HIV/AIDS: No Genitourinary: No Gastrointestinal: Yes (occasional GERD) Gastroesophageal Reflux Musculoskeletal: Yes (PLANTAR FASCITIS) Endocrine: No HEENT: No Loss of Vision: Denies Hearing Impairment: Denies Cancer: No Psychosocial: Yes Sleep Difficulties, Anxiety, Depression Integumentary: No (cold sore) Blood Disorders: No Adverse Reaction/Blood Tranf: No Family Medical History Cardiovascular disease 19 FATHER, , Age:40's - 50, Onset:25's - 30 G8 SISTER, , Age:30's - 40, Onset:Adolescence CAD Under 55 Years Old, CVA Sister of [place] at 34 Physical Exam Vital Signs Vital Signs - First Documented 03/10/18 21:22 Temp 98.8 Pulse 85 Resp 16 B/P (MAP) 135/63 (87) Pulse Ox 97 O2 Delivery Room Air Capillary Refill : Less Than 3 Seconds Height, Weight, BMI Height: 5'2.00" Weight: 210lbs. 0oz. 95.676560es; 36.6 BMI Method:Stated General Appearance: no apparent distress, obese Neck: normal inspection Cardiovascular: normal peripheral pulses, regular rate, rhythm, no murmur Respiratory: normal breath sounds Shoulder: normal inspection, non-tender, normal ROM Elbow/Forearm: normal inspection, non-tender, normal ROM Wrist: Yes normal inspection, Yes non-tender, Yes no evidence of injury, Yes normal ROM Hand: normal inspection, non-tender, no evidence of injury, normal ROM, Bilateral (+ TINNEL'S BILATERALLY) Neurologic/Tendon: normal sensation (HAS SENSATION TO LIGHT AND DEEP TOUCH), normal motor functions, normal tendon functions Neurologic/Psychiatric: ham curer II-XII nml as tested, no motor/sensory deficits, alert, normal mood/affect, oriented x 3 Skin: normal color, warm/dry Progress/Results/Core Measures Results/Orders My Orders Orders - KAYE STANFORD DO Pregabalin Capsule (Lyrica Capsule) (03/10/18 21:45) Methylprednisolone Sod Succ (Solu-Medrol (03/10/18 21:45) Vital Signs/I&O 03/10/18 21:22 Temp 98.8 Pulse 85 Resp 16 B/P (MAP) 135/63 (87) Pulse Ox 97 O2 Delivery Room Air Blood Pressure Mean: 87 Departure Impression Primary Impression: BILATERAL CARPAL TUNNEL SYMPTOMS Disposition: 01 HOME, SELF-CARE Condition: Stable Departure-Patient Inst. Referrals: [facility] (PCP/Family) Primary Care Physician Patient Instructions: Carpal Tunnel Exercises, Carpal Tunnel Syndrome (DC) Add. Discharge Instructions: WEAR SPLINTS AT ALL TIMES ICE TO WRIST AREAS AT 20 MINUTE INTERVALS ELEVATE HANDS MUCH POSSIBLE KEEP YOUR APPOINTMENT ON THURSDAY WITH [facility] All discharge instructions reviewed with patient and/or family. Voiced understanding. Scripts Pregabalin (Lyrica) 75 Mg Capsule 75 MG PO BID, #30 CAP Prov: KAYE STANFORD DO 03/10/18 Methylprednisolone (Medrol) 4 Mg Tab.ds.pk 4 MG PO UD, #1 PKG Prov: KAYE STANFORD DO 03/10/18 KAYE STANFORD DO Mar 10, 2018 21:47
[2018-03-10] MEDS ORDERED: METH4TAB PO (21:53)
[2018-03-10] MEDS ORDERED: PREG75CA PO (21:53)
[2018-03-10 22:15] VITALS: BP 117/62
== END 2018-03-10 22:15 | disposition home or self-care (01) ==
LOC: EDUNIT# 21:02 → ER 21:04
DX: G56.03 Carpal tunnel syndrome, bilateral upper limbs (principal); I25.10 Atherosclerotic heart disease of native coronary artery without angina pectoris; E78.00 Pure hypercholesterolemia, unspecified; I10 Essential (primary) hypertension; K21.9 Gastro-esophageal reflux disease without esophagitis; F41.9 Anxiety disorder, unspecified; F32.9 Major depressive disorder, single episode, unspecified; Z79.82 Long term (current) use of aspirin; Z98.890 Other specified postprocedural states; Z82.49 Family history of ischemic heart disease and other diseases of the circulatory system; Z95.5 Presence of coronary angioplasty implant and graft; Z98.51 Tubal ligation status
CPT/HCPCS: 96372; 99284

== ENCOUNTER 2018-04-18 18:53 | Emergency (ER) | payer SELFPAY ==
[~2018-04-18] VITALS: Ht 157.5 cm; Wt 90.7 kg
--- NOTE | 2018-04-18 21:18 | Diagnostic Imaging Report ---
CHEST PA/LAT (2 VIEW) Indication: Cough Comparison: 12/06/2017 Findings: No focal pneumonic consolidation, pleural effusion or pneumothorax. Normal heart size and pulmonary vasculature. Impression: No acute cardiopulmonary process. Dictated by: Dictated on workstation # [id number]
--- NOTE | 2018-04-18 21:34 | ED Cough/URI ---
General Chief Complaint: Cough/Cold/Flu Symptoms Stated Complaint: CONGESTED,COUGH,FEVER Nursing Triage Note: PT ARRIVED IN ED WITH C/O COUGH, NO APETITE, SWEATY FOR ONE WEEK. PT JUST FINISHED A ZPACK SCRIPT TODAY BUT IS NOT ANY BETTER Sepsis Screen: Possible Sepsis Risk Source: patient Exam Limitations: no limitations History of Present Illness Date Seen by Provider: Apr 18, 2018 Time Seen by Provider: 20:45 Initial Comments 47-year-old female who presents to the emergency room with complaints of cough, no appetite, fever or chills and becoming sweaty at times times for one week. She currently reports just getting off of a Z-[place] today but is not having much improvement. Severity/Quality: productive cough Associated Symptoms: fever/chills Allergies and Home Medications Allergies Coded Allergies: No Known Drug Allergies (Unverified , 11/16/17) Home Medications Aspirin 81 Mg Tab.chew, 81 MG PO DAILY Prescribed by: Genna FRIAS on 11/19/172207 Atorvastatin Calcium 80 Mg Tablet, 80 MG PO DAILY, (Reported) Gabapentin 300 Mg Capsule, 300 MG PO TID, (Reported) Hydroxyzine Pamoate 25 Mg Capsule, 25 MG PO BID PRN for ANXIETY, (Reported) Lisinopril 5 Mg Tablet, 5 MG PO DAILY Prescribed by: Genna FRIAS on 11/19/172209 Methylprednisolone 4 Mg Tab.ds.pk, 4 MG PO UD Prescribed by: KAYE STANFORD on 03/10/182152 Methylprednisolone 4 Mg Tab.ds.pk, 4 MG PO UD Prescribed by: ROSA MARIA ZAMORA on 04/18/182152 Metoprolol Succinate 25 Mg Tab.er.24h, 25 MG PO DAILY Prescribed by: Genna FRIAS on 11/19/172208 Mirtazapine 15 Mg Tablet, 15 MG PO HS, (Reported) Pregabalin 75 Mg Capsule, 75 MG PO BID Prescribed by: KAYE STANFORD on 03/10/182152 Promethazine/Dextromethorphan 473 Ml Syrup, 5 ML PO Q6H PRN for cough Prescribed by: ROSA MARIA ZAMORA on 04/18/182152 Ticagrelor 90 Mg Tablet, 90 MG PO BID Prescribed by: Genna FRIAS on 11/19/172207 Vilazodone Hydrochloride 20 Mg Tablet, 20 MG PO DAILY, (Reported) Patient Home Medication List Home Medication List Reviewed: Yes Review of Systems Review of Systems Constitutional: see HPI, chills, fever, malaise Respiratory: see HPI, cough All Other Systems Reviewed Negative Unless Noted: Yes Past Bkbyths-Vjpixd-Hfhebf Hx Past Med/Social Hx: Reviewed Nursing Past Med/Soc Hx Patient Social History Type Used: Cigarettes Recent Foreign Travel: No Contact w/Someone Who Travel: No Recent Infectious Disease Expo: No Recent Hopitalizations: Yes (June 2017 was intubated for alcohol intoxication) Immunizations Up To Date Tetanus Booster (TDap): Unknown PED Vaccines UTD: Yes Date of Pneumonia Vaccine: Dec 19, 2014 Seasonal Allergies Seasonal Allergies: No Past Medical History Surgeries: Yes ( X 2; CARDIAC CATH WITH STENTS X 2 10/2017) Section, Coronary Stent, Tubal Ligation Respiratory: No Cardiac: Yes Coronary Artery Disease, High Cholesterol, Hypertension Neurological: No (have had a withdraw seizure from alcohol) Female Reproductive Disorders: 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 Sexually Transmitted Disease: No HIV/AIDS: No Genitourinary: No Gastrointestinal: Yes (occasional GERD) Gastroesophageal Reflux Musculoskeletal: Yes (PLANTAR FASCITIS) Endocrine: No HEENT: No Loss of Vision: Denies Hearing Impairment: Denies Cancer: No Psychosocial: Yes Sleep Difficulties, Anxiety, Depression Integumentary: No (cold sore) Blood Disorders: No Adverse Reaction/Blood Tranf: No Family Medical History Reviewed Nursing Family Hx Cardiovascular disease 19 FATHER, , Age:40's - 50, Onset:25's - 30 G8 SISTER, , Age:30's - 40, Onset:Adolescence CAD Under 55 Years Old, CVA Sister of [place] at 34 Physical Exam Vital Signs - First Documented 04/18/18 19:31 Temp 99.2 Pulse 81 Resp 22 B/P (MAP) 136/76 (96) Pulse Ox 100 O2 Delivery Room Air Capillary Refill : Less Than 3 Seconds Height: 5'2.00" Weight: 200lbs. 0oz. 90.526426kk; 36.6 BMI Method:Stated General Appearance: WD/WN, no apparent distress Respiratory: chest non-tender, lungs clear, normal breath sounds, no respiratory distress, no accessory muscle use, respiratory distress Cardiovascular: normal peripheral pulses, regular rate, rhythm, no edema, no gallop, no JVD, no murmur Neurologic/Psychiatric: alert, normal mood/affect, oriented x 3 Skin: normal color, warm/dry Progress/Results/Core Measures Suspected Sepsis Recent Fever Within 48 Hours: Yes Infection Criteria Present: Suspected New Infection New/Unexplained Altered Menta: No Sepsis Screen: Possible Sepsis Risk SIRS Temperature:99.2 Pulse: 81 Respiratory Rate: 22 Blood Pressure 136 /76 Mean: 96 Results/Orders Micro Results Microbiology 04/18/18 Influenza Types A,B Antigen (MEGHA) - Final, Complete My Orders Orders - ROSA MARIA ZAMORA Chest Pa/Lat (2 View) (04/18/18 20:45) Influenza A And B Antigens (04/18/18 20:47) Vital Signs/I&O 04/18/18 04/18/18 04/18/18 19:31 20:53 21:59 Temp 99.2 97.4 Pulse 81 64 Resp 22 18 B/P (MAP) 136/76 (96) 128/64 (85) Pulse Ox 100 100 O2 Delivery Room Air Room Air Room Air Capillary Refill : Less Than 3 Seconds Blood Pressure Mean: 96 Progress Note : Time: 21:50 Progress Note I have seen and evaluated the patient. I've informed her of her laboratory and imaging studies. She agrees with plan of care, plans for discharge, return precautions were given. Diagnostic Imaging Diagonstic Imaging: Xray Plain Films/CT/US/NM/MRI: chest Comments NAME: NORI WALL [facility] REC#: [id number] PT STATUS: REG ER : 1970 PHYSICIAN: ROSA MARIA ZAMORA ADMIT DATE: 04/18/18/ER Signed Date of Exam: 04/18/18 CHEST PA/LAT (2 VIEW) CHEST PA/LAT (2 VIEW) Indication: Cough Comparison: 12/06/2017 Findings: No focal pneumonic consolidation, pleural effusion or pneumothorax. Normal heart size and pulmonary vasculature. Impression: No acute cardiopulmonary process. Dictated by: Dictated on workstation # [id number] Dict: 04/18/182114 Trans: 04/18/182114 Interpreted by: MAGAN ROBERTSON MD Electronically signed by: MAGAN ROBERTSON MD 04/18/18 9094 Reviewed: Reviewed by Me Departure Impression Primary Impression: Bronchitis Additional Impression: Influenza-like symptoms Disposition: 01 HOME, SELF-CARE Condition: Stable/Unchanged Departure-Patient Inst. Decision time for Depature: 21:50 Referrals: [facility] (PCP/Family) Primary Care Physician Patient Instructions: Acute Bronchitis, Adult (DC), Viral Upper Respiratory Infection, Adult (DC) Add. Discharge Instructions: Take medications as directed. Follow-up with your primary care provider within 1 week for recheck. Return back to the emergency room for worsening symptoms or concerns as needed. You may use ibuprofen and Tylenol as directed by the bottle for pain and fever. All discharge instructions reviewed with patient and/or family. Voiced understanding. Scripts Methylprednisolone (Medrol) 4 Mg Tab.ds.pk 4 MG PO UD, #1 PKG Prov: ROSA MARIA ZAMORA 04/18/18 Promethazine/Dextromethorphan (Promethazine-Dm Syrup) 473 Ml Syrup 5 ML PO Q6H PRN for cough, #50 ML Prov: ROSA MARIA ZAMORA 04/18/18 ROSA MARIA ZAMORA Apr 18, 2018 21:34
[2018-04-18 21:59] VITALS: BP 128/64
== END 2018-04-18 22:00 | disposition home or self-care (01) ==
LOC: EDUNIT# 18:53 → ER 18:54
DX: J40 Bronchitis, not specified as acute or chronic (principal); R50.9 Fever, unspecified; R09.81 Nasal congestion; I25.10 Atherosclerotic heart disease of native coronary artery without angina pectoris; E78.00 Pure hypercholesterolemia, unspecified; I10 Essential (primary) hypertension; K21.9 Gastro-esophageal reflux disease without esophagitis; F41.9 Anxiety disorder, unspecified; F32.9 Major depressive disorder, single episode, unspecified; Z79.82 Long term (current) use of aspirin; Z79.52 Long term (current) use of systemic steroids; Z82.49 Family history of ischemic heart disease and other diseases of the circulatory system; Z98.890 Other specified postprocedural states; Z95.5 Presence of coronary angioplasty implant and graft; Z98.51 Tubal ligation status
CPT/HCPCS: 71046; 87804

== ENCOUNTER 2019-06-20 19:45 | Observation (INO) | payer SELFPAY ==
[~2019-06-20] VITALS: Ht 157 cm; Wt 86.2 kg
[~2019-06-20 19:45] MED LIST changes: +D-ME473S11 PO; +METH4TAB PO; +PREG75CA PO
[2019-06-20] MEDS ORDERED: ASPIRIN 81 MG CHEW (CHILDREN'S ASA) PO ONE (20:00)
[2019-06-20] MEDS: NITROGLYCERIN 0.4 MG SL TABS BTL 25'S SL PRN ×2 (20:07→20:18)
[2019-06-20] MEDS ORDERED: NS IV 1000 ML 1,000 ML ONE (20:08)
[2019-06-20 20:11] LABS: BASOPHILS % (AUTO) 0 % (0-10); EOSINOPHILS # (AUTO) 0.3 10^3/uL (0.0-0.3); EOSINOPHILS % (AUTO) 3 % (0-10); HEMATOCRIT 33 % (35-52); HEMOGLOBIN 10.7 G/DL (11.5-16.0); LYMPHOCYTES # (AUTO) 2.3 X 10^3 (1.0-4.0); LYMPHOCYTES % (AUTO) 25 % (12-44); MEAN CORPUSCULAR HEMOGLOBIN 26 PG (25-34); MEAN CORPUSCULAR HGB CONC 32 G/DL (32-36); MEAN CORPUSCULAR VOLUME 82 FL (80-99); MEAN PLATELET VOLUME 9.5 FL (7.4-10.4); MONOCYTES # (AUTO) 0.6 X 10^3 (0.0-1.0); MONOCYTES % (AUTO) 7 % (0-12); NEUTROPHILS % (AUTO) 66 % (42-75); PLATELET COUNT 339 10^3/uL (130-400); RED CELL DISTRIBUTION WIDTH 20.1 % (10.0-14.5); WHITE BLOOD COUNT 9.2 10^3/uL (4.3-11.0)
[2019-06-20] MEDS ORDERED: NS IV 1000 ML 1,000 ML IV SCH (20:15)
[2019-06-20 20:20] LABS: ALBUMIN 4.1 GM/DL (3.2-4.5); CHLORIDE 105 MMOL/L (98-107); POTASSIUM 3.5 MMOL/L (3.6-5.0); SODIUM 139 MMOL/L (135-145)
[2019-06-20 20:21] LABS: AMYLASE 36 U/L (25-125); CALCIUM 8.8 MG/DL (8.5-10.1)
[2019-06-20 20:22] LABS: GLUCOSE 90 MG/DL (70-105); INR 0.9 (0.8-1.4); PROTHROMBIN TIME PATIENT 11.9 SEC (12.2-14.7); TOTAL PROTEIN 7.2 GM/DL (6.4-8.2)
[2019-06-20 20:23] LABS: CARBON DIOXIDE 21 MMOL/L (21-32)
[2019-06-20 20:24] LABS: BILIRUBIN,TOTAL 0.2 MG/DL (0.1-1.0)
[2019-06-20 20:26] LABS: ALKALINE PHOSPHATASE 105 U/L (40-136); CREATININE SERUM 0.84 MG/DL (0.60-1.30); GFR ESTIMATED > 60
[2019-06-20 20:27] LABS: BUN/CREATININE RATIO 10
[2019-06-20 20:29] LABS: ALANINE AMINOTRANSFERASE 19 U/L (0-55); MAGNESIUM 1.9 MG/DL (1.6-2.4)
[2019-06-20 20:30] LABS: CREATINE KINASE 118 U/L (29-168); LIPASE 38 U/L (8-78)
[2019-06-20 20:37] LABS: CREATINE KINASE MB 1.3 NG/ML (<6.6)
--- NOTE | 2019-06-20 20:50 | Diagnostic Imaging Report ---
INDICATION: Chest pain with left arm pain and productive cough. TECHNIQUE: Single view chest 8:34 PM. CORRELATION STUDY: 04/18/2018 FINDINGS: Heart size is borderline appearing more prominent from prior studies and this may be attributed to technique. Vasculature overall within normal limits. There is perhaps minimal infiltrate at the right lung base versus atelectasis from hypoventilation. IMPRESSION: 1. Question minimal atelectasis versus infiltrate at the right lung base. Borderline heart size without failure. Dictated by: Dictated on workstation # [id number]
[2019-06-20 21:50] LABS: AMPHETAMINE SCREEN, URINE NEGATIVE (NEGATIVE); BARBITURATE SCREEN URINE NEGATIVE (NEGATIVE); BENZODIAZEPINES SCREEN URINE NEGATIVE (NEGATIVE); CANNABINOID SCREEN, URINE NEGATIVE (NEGATIVE); COCAINE SCREEN URINE NEGATIVE (NEGATIVE); METHADONE STAT NEGATIVE (NEGATIVE); METHAMPHETAMINE SCREEN URINE S NEGATIVE (NEGATIVE); OPIATE SCREEN URINE NEGATIVE (NEGATIVE); OXYCODONE STAT NEGATIVE (NEGATIVE); PROPOXYPHENE STAT NEGATIVE (NEGATIVE); TRICYCLIC ANTIDEPRESSANTS SCRE NEGATIVE (NEGATIVE)
--- NOTE | 2019-06-20 22:19 | NUR ---
NORI WALL admitted to room CU8-1, with an admitting diagnosis of Chest pain, left arm pain, right arm tingling, on 06/20/19 from [facility] ED via wheelchair, accompanied by staff for transport.NORI WALL introduced to surroundings, call light, bed controls, phone, TV, temperature control, lights, meal times, smoking policy, visitor policy, side rail policy, bathrooms and showers. Patient Rights given to patient in the handbook. NORI WALL verbalizes understanding that [facility] is not responsible for the loss or damage to any personal effects or valuables that are kept in the patients possession during their hospitalization. The following Patient Care Plans were discussed with the patient: Discharge Planning, pain management,activity, and diet. NORI WALL verbalizes understanding of Interdisciplinary Patient Education. Patient and/or family were informed about the Rapid Response Team and its purpose.
[2019-06-20 22:23] VITALS: BP 103/82
[2019-06-20 22:44] VITALS: BP 103/82
[2019-06-20 22:45] VITALS: BP 92/55
[2019-06-20] MEDS ORDERED: PATIENT MAY USE OWN MEDS, ALL PO SCH (22:45)
[2019-06-20 23:00] VITALS: BP 109/65
[2019-06-20] MEDS ORDERED: rOPINIRole 0.25 MG (REQUIP) TAB PO ONE (23:00)
[2019-06-20 23:15] VITALS: BP 96/45
[2019-06-20] MEDS ORDERED: NICOTINE 21 MG (NICODERM) PATCH ONE (23:20)
[2019-06-20] MEDS: TICAGRELOR 90 MG TABLET (BRILINTA) PO SCH (23:27)
[2019-06-20] MEDS: GABAPENTIN 300 MG (NEURONTIN) CAP PO SCH (23:27)
[2019-06-20] MEDS: MIRTAZAPINE 15 MG (REMERON) TAB PO SCH (23:27)
[2019-06-20] MEDS ORDERED: NITROGLYCERIN 0.4 MG SL TABS BTL 25'S SL PRN (23:30)
[2019-06-20] MEDS ORDERED: LORazepam INJ 2 MG/ML (ATIVAN) VIAL IV PRN (23:30)
[2019-06-20] MEDS ORDERED: morphine INJ 4 MG/ML 1 ML (VIAL/SYRINGE) IV PRN (23:30)
[2019-06-20] MEDS ORDERED: ONDANSETRON 4 MG/2 ML (SDV) Z0FRAN IV PRN (23:30)
[2019-06-21] VITALS (11 sets, daily range): BP systolic 89–124; BP diastolic 44–72
[2019-06-21 03:36] LABS: BASOPHILS % (AUTO) 0 % (0-10); EOSINOPHILS # (AUTO) 0.3 10^3/uL (0.0-0.3); EOSINOPHILS % (AUTO) 4 % (0-10); HEMATOCRIT 32 % (35-52); HEMOGLOBIN 9.9 G/DL (11.5-16.0); LYMPHOCYTES # (AUTO) 2.3 X 10^3 (1.0-4.0); LYMPHOCYTES % (AUTO) 34 % (12-44); MEAN CORPUSCULAR HEMOGLOBIN 26 PG (25-34); MEAN CORPUSCULAR HGB CONC 31 G/DL (32-36); MEAN CORPUSCULAR VOLUME 83 FL (80-99); MEAN PLATELET VOLUME 9.8 FL (7.4-10.4); MONOCYTES # (AUTO) 0.5 X 10^3 (0.0-1.0); MONOCYTES % (AUTO) 7 % (0-12); NEUTROPHILS # (AUTO) 3.7 X 10^3 (1.8-7.8); NEUTROPHILS % (AUTO) 54 % (42-75); PLATELET COUNT 308 10^3/uL (130-400); RED CELL DISTRIBUTION WIDTH 20.2 % (10.0-14.5); WHITE BLOOD COUNT 6.8 10^3/uL (4.3-11.0)
[2019-06-21 04:01] LABS: ALBUMIN 3.5 GM/DL (3.2-4.5); CHLORIDE 113 MMOL/L (98-107); SODIUM 142 MMOL/L (135-145)
[2019-06-21 04:02] LABS: CALCIUM 8.1 MG/DL (8.5-10.1)
[2019-06-21 04:03] LABS: GLUCOSE 95 MG/DL (70-105)
[2019-06-21 04:04] LABS: CARBON DIOXIDE 19 MMOL/L (21-32)
[2019-06-21 04:05] LABS: BILIRUBIN,TOTAL 0.2 MG/DL (0.1-1.0)
[2019-06-21 04:07] LABS: ALKALINE PHOSPHATASE 87 U/L (40-136); GFR ESTIMATED > 60
[2019-06-21 04:08] LABS: BUN/CREATININE RATIO 11
[2019-06-21 04:10] LABS: ALANINE AMINOTRANSFERASE 16 U/L (0-55)
--- NOTE | 2019-06-21 05:58 | ED Cardiac General ---
History of Present Illness General Chief Complaint: Chest Pain Stated Complaint: CHEST PAIN Nursing Triage Note: PT PRESENTS TO THE ED C/O L ARM PAIN WITH TINGLING TO THE R ARM. PT STATES SHE A CARDIAC X. STATES HE BROKE INTO A COLD SWEAT EARLIER THIS AM Source: patient History of Present Illness Date Seen by Provider: Jun 20, 2019 Time Seen by Provider: 19:45 Initial Comments PT ARRIVES VIA POV FROM [facility] [place] PT C/O LEFT ARM PAIN OFF AND ON SINCE YESTERDAY MORNING. RATES PAIN 4/10 AT THIS TIME STATES PAIN IS WORSE WHEN SHE IS "ANXIOUS" BUT IS BETTER/GOES AWAY WHEN SHE RESTS/LAYS DOWN. STATES SHE WOKE UP YESTERDAY AM AND THE SHEETS WERE SOAKED, THEN SLEPT ALL DAY YESTERDAY AND THEN WOKE UP AT 0300 THIS AM TO GO TO WORK. STATES SHE HAS BEEN "CLAMMY" ALL DAY AT WORK HAS HAD NAUSEA OFF AND ON FOR A COUPLE OF WEEKS--ESPECIALLY AFTER EATING, BUT NOT NOW. NO VOMITING OR DIARRHEA OR ABDOMINAL PAIN STATES RIGHT ARM FEELS TINGLY NO ACTUAL DISCOMFORT IN CHEST OR BACK NO NECK PAIN NO MOTOR DEFICITS NO FEVER NO SIGNIFICANT COUGH OR URI SYMPTOMS OR RECENT ILLNESS--STATES "I ALWAYS HAVE A SMOKER'S COUGH" AND STATES IT IS NO DIFFERENT THAN NORMAL NO SHORTNESS OF BREATH NO PALPITATIONS NO DIZZINESS OR SYNCOPE NO SWELLING IN LEGS/FEET OR PAIN IN CALVES. PT HAS HISTORY OF 3 VESSEL CAD, AND HAD CARDIAC CATH BY DR. FRIAS IN 2018--HAD STENTS X 2--1 TO LAD AND 1 TO LEFT CIRCUMFLEX; RCA HAD COMPLETE OCCLUSION WITH COLLATERAL CIRCULATION-NO INTERVENTION DONE TO THAT VESSEL PT WAS PRESCRIBED USP DUAL ANTIPLATELET THERAPY AT THAT TIME. PT STATES SHE HAS PRESCRIPTION FOR BRILLINTA, BUT HAS NOT BEEN TAKING ASPIRIN. PT STATES SHE HAS NOT FOLLOWED UP WITH DR. FRIAS OR ANY INSPECTOR SCREEN PRINTING SINCE THEN PT STATES SHE "JUST MOVED BACK HERE LAST JULY 2018" --STATES SHE WAS LIVING IN [place], AND THEN WAS LIVING IN [place], BEFORE MOVING BACK HERE. PT CONTINUES TO SMOKE AT LEAST 1 PPD PT IS "RECOVERING ALCOHOLIC" --STATES SHE WOULD DRINK ANYTHING UNTIL SHE PASSED OUT EVERY DAY--DENIES RECENT USE PT ALSO HAS HISTORY OF METH AND THC USE, CLAIMS NO DRUG USE OF ANY KIND "FOR A LONG TIME" PT REPORTS THAT HER SISTER AT AGE 34 OF AN [place], AND HER FATHER AT AGE 44 OF AN [place]. NO KNOWN EXPOSURE TO COVID-19 OR SICK CONTACTS. NTG SL ASSEMBLY LINE DRIVER: No ASA po ASSEMBLY LINE DRIVER: No PCP: SHARIF, DR. Jermaine TREVIÑO INSPECTOR SCREEN PRINTING: DR. FRIAS Allergies and Home Medications Allergies Coded Allergies: No Known Drug Allergies (Unverified , 11/16/17) Home Medications Aspirin 81 Mg Tab.chew, 81 MG PO DAILY Prescribed by: Genna FRIAS on 11/19/172207 Atorvastatin Calcium 80 Mg Tablet, 80 MG PO DAILY, (Reported) Gabapentin 300 Mg Capsule, 300 MG PO TID, (Reported) Hydroxyzine Pamoate 25 Mg Capsule, 25 MG PO BID PRN for ANXIETY, (Reported) Lisinopril 5 Mg Tablet, 5 MG PO DAILY Prescribed by: Genna FRIAS on 11/19/172209 Methylprednisolone 4 Mg Tab.ds.pk, 4 MG PO UD Prescribed by: KAYE STANFORD on 03/10/182152 Methylprednisolone 4 Mg Tab.ds.pk, 4 MG PO UD Prescribed by: ROSA MARIA ZAMORA on 04/18/182152 Metoprolol Succinate 25 Mg Tab.er.24h, 25 MG PO DAILY Prescribed by: Genna FRIAS on 11/19/172208 Mirtazapine 15 Mg Tablet, 15 MG PO HS, (Reported) Pregabalin 75 Mg Capsule, 75 MG PO BID Prescribed by: KAYE STANFORD on 03/10/182152 Promethazine/Dextromethorphan 473 Ml Syrup, 5 ML PO Q6H PRN for cough Prescribed by: ROSA MARIA ZAMORA on 04/18/182152 Ticagrelor 90 Mg Tablet, 90 MG PO BID Prescribed by: Genna FRIAS on 11/19/172207 Vilazodone Hydrochloride 20 Mg Tablet, 20 MG PO DAILY, (Reported) Patient Home Medication List Home Medication List Reviewed: Yes Review of Systems Review of Systems Constitutional: see HPI, diaphoresis EENTM: No Symptoms Reported Respiratory: See HPI; Denies Shortness of Air, Denies Wheezing Cardiovascular: See HPI; Denies Chest Pain, Denies Edema, Denies Irregular Heart Rate, Denies Lightheadedness, Denies Palpitations, Denies Syncope Gastrointestinal: See HPI; Denies Abdominal Pain, Denies Diarrhea; Nausea; D enies Vomiting Genitourinary: Other (IS CURRENTLY BEING TREATED FOR TRICHOMONAS ) Musculoskeletal: see HPI; No back pain Skin: no symptoms reported; No rash Psychiatric/Neurological: See HPI, Anxiety, Numbness, Paresthesia, Tingling; Denies Weakness Endocrine: No Symptoms Reported Hematologic/Lymphatic: No Symptoms Reported Past Yenueoe-Rwuiun-Ohlked Hx Past Med/Social Hx: Reviewed and Corrections made Patient Social History Alcohol Use: Past History (HISTORY OF ABUSE-"DRANK EVERYTHING UNTIL I PASSED OUT EVERY DAY" -CLAIMS NO RECENT USE, ON 06/20/19) Recreational Drug Use: Yes (ADMITS TO THC & METH USE, BUT CLAIMS NO USE"FOR LONG TIME"-UDS + FOR PCP ) Drug of Choice: ADMITS THC & METH USE-CLAIMS NO IV USE OR USE "FOR A LONG TIME"-UDS + PCP Smoking Status: Current Everyday Smoker (1 PPD) Type Used: Cigarettes (1 PPD) Recent Foreign Travel: No Contact w/Someone Who Travel: No Recent Infectious Disease Expo: No Recent Hopitalizations: Yes (June 2017 was intubated for alcohol intoxication) Physical Abuse: No Sexual Abuse: No Mistreated: No Fear: No Immunizations Up To Date Tetanus Booster (TDap): Unknown PED Vaccines UTD: Yes Date of Pneumonia Vaccine: Dec 19, 2014 Seasonal Allergies Seasonal Allergies: No Past Medical History Surgeries: Yes ( X 2; CARDIAC CATH WITH STENTS X 2 10/2017;TEETH REMOVED) Section, Coronary Stent, Tubal Ligation Respiratory: No Cardiac: Yes (STENTS TO LAD & L CIRCUMFLEX; TOTAL OCCLUSION OF RCA WITH COLLATERALS) Coronary Artery Disease, High Cholesterol, Hypertension Neurological: Yes (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; RESTLESS LEG SYNDROME) : No Female Reproductive Disorders: Denies HOME SERVICE DIRECTOR History: Tubal Ligation Sexually Transmitted Disease: Yes (BEING TREATED FOR TRICHOMONAS 06/2019) HIV/AIDS: No Genitourinary: No Gastrointestinal: Yes (occasional GERD) Gastroesophageal Reflux Musculoskeletal: Yes (PLANTAR FASCITIS; RESTLESS LEG SYNDROME) Endocrine: No HEENT: No Loss of Vision: Denies Hearing Impairment: Denies Cancer: No Psychosocial: Yes (POLYSUBSTANCE ABUSE) Sleep Difficulties, Anxiety, Depression Integumentary: No (cold sore) Blood Disorders: No Adverse Reaction/Blood Tranf: No Family Medical History Cardiovascular disease 19 FATHER, , Age:40's - 50, Onset:25's - 30 G8 SISTER, , Age:30's - 40, Onset:Adolescence CAD Under 55 Years Old, CVA SISTER OF [place] AT AGE 34, DAD OF [place] AT AGE 44--PER PT Physical Exam Vital Signs Vital Signs - First Documented 06/20/19 19:54 Temp 37.1 Pulse 81 Resp 20 B/P (MAP) 129/77 (94) Pulse Ox 98 O2 Delivery Room Air Capillary Refill : Less Than 3 Seconds Height, Weight, BMI Height: 5'2.00" Weight: 200lbs. 0oz. [id number]; 34.88 BMI Method:Stated General Appearance: No Apparent Distress, WD/WN, Anxious, Other (REEKS OF CIGARETTES) HEENT: PERRL/EOMI Neck: Full Range of Motion, Normal Inspection, Non Tender, Supple; No Carotid Bruit, No JVD Respiratory: Chest Non Tender, Normal Breath Sounds, No Accessory Muscle Use, No Respiratory Distress Cardiovascular: Regular Rate, Rhythm, No Edema, No JVD, No Murmur, Normal Peripheral Pulses Gastrointestinal: Normal Bowel Sounds, No Organomegaly, No Pulsatile Mass, Non Tender, Soft Extremity: Normal Capillary Refill, Normal Inspection, Normal Range of Motion, Non Tender, No Calf Tenderness, No Pedal Edema Neurologic/Psychiatric: Alert, Oriented x3, No Motor/Sensory Deficits, stopper setter II- XII Norm as Tested Skin: Normal Color, Warm/Dry, Tattoos/Piercings Progress/Results/Core Measures Results/Orders Lab Results Laboratory Tests Test 06/20/19 20:04 Range/Units White Blood Count 9.2 4.3-11.0 10^3/uL Red Blood Count 4.05 L 4.35-5.85 10^6/uL Hemoglobin 10.7 L 11.5-16.0 G/DL Hematocrit 33 L 35-52 % Mean Corpuscular Volume 82 80-99 FL Mean Corpuscular Hemoglobin 26 25-34 PG Mean Corpuscular Hemoglobin Concent 32 32-36 G/DL Red Cell Distribution Width 20.1 H 10.0-14.5 % Platelet Count 339 130-400 10^3/uL Mean Platelet Volume 9.5 7.4-10.4 FL Neutrophils (%) (Auto) 66 42-75 % Lymphocytes (%) (Auto) 25 12-44 % Monocytes (%) (Auto) 7 0-12 % Eosinophils (%) (Auto) 3 0-10 % Basophils (%) (Auto) 0 0-10 % Neutrophils # (Auto) 6.0 1.8-7.8 X 10^3 Lymphocytes # (Auto) 2.3 1.0-4.0 X 10^3 Monocytes # (Auto) 0.6 0.0-1.0 X 10^3 Eosinophils # (Auto) 0.3 0.0-0.3 10^3/uL Basophils # (Auto) 0.0 0.0-0.1 10^3/uL Prothrombin Time 11.9 L 12.2-14.7 SEC INR Comment 0.9 0.8-1.4 Activated Partial Thromboplast Time 29 24-35 SEC Sodium Level 139 135-145 MMOL/L Potassium Level 3.5 L 3.6-5.0 MMOL/L Chloride Level 105 98-107 MMOL/L Carbon Dioxide Level 21 21-32 MMOL/L Anion Gap 13 5-14 MMOL/L Blood Urea Nitrogen 8 7-18 MG/DL Creatinine 0.84 0.60-1.30 MG/DL Estimat Glomerular Filtration Rate > 60 BUN/Creatinine Ratio 10 Glucose Level 90 70-105 MG/DL Calcium Level 8.8 8.5-10.1 MG/DL Corrected Calcium 8.7 8.5-10.1 MG/DL Magnesium Level 1.9 1.6-2.4 MG/DL Total Bilirubin 0.2 0.1-1.0 MG/DL Aspartate Amino Transf (AST/SGOT) 20 5-34 U/L Alanine Aminotransferase (ALT/SGPT) 19 0-55 U/L Alkaline Phosphatase 105 40-136 U/L Total Creatine Kinase 118 29-168 U/L Creatine Kinase MB 1.3 <6.6 NG/ML Myoglobin 26.1 10.0-92.0 NG/ML Troponin I < 0.028 <0.028 NG/ML B-Type Natriuretic Peptide 16.2 <100.0 PG/ML Total Protein 7.2 6.4-8.2 GM/DL Albumin 4.1 3.2-4.5 GM/DL Amylase Level 36 25-125 U/L Lipase 38 8-78 U/L Serum Test, Qualitative NEGATIVE NEGATIVE Serum Alcohol < 10 <10 MG/DL My Orders Orders - ABDOULAYEKAYE Sanon DO Cbc With Automated Diff (06/20/19:47) Magnesium (06/20/19:47) Chest 1 View, Ap/Pa Only (06/20/19:47) Ekg Tracing (06/20/19:47) Comprehensive Metabolic Panel (06/20/19:47) Myoglobin Serum (06/20/19:47) Protime With Inr (06/20/19:47) Partial Thromboplastin Time (06/20/19:47) O2 (06/20/19:47) Monitor-Rhythm Ecg Trace Only (06/20/19:47) Ed Iv/Invasive Line Start (06/20/19:47) Creatine Kinase (06/20/19:47) Creatine Kinase Mb (06/20/19:47) Lipase (06/20/19:47) Amylase (06/20/19:47) BNP (06/20/19:47) Troponin I (06/20/19:47) Nitroglycerin 0.4 Mg Btl 25's (Nitrostat (06/20/19 20:00) Aspirin Chewable Tablet (Baby Aspirin Ch (06/20/19 20:00) Ed Iv/Invasive Line Start (06/20/19 20:15) Ns Iv 1000 Ml (Sodium Chloride 0.9%) (06/20/19 20:15) Ns Iv 1000 Ml (Sodium Chloride 0.9%) (06/20/19 20:08) Alcohol (06/20/19 20:57) Drug Screen Stat (Urine) (06/20/19 20:57) Hcg,Qualitative Serum (06/20/19 20:57) Medications Given in ED Current Medications Medications Dose Ordered Sig/Roger Route Start Time Stop Time Status Last Admin Dose Admin Aspirin 324 mg ONCE ONCE PO 06/20/19 20:00 06/20/19 20:01 DC 06/20/19 20:06 324 MG Nitroglycerin 0.4 mg UD PRN SL 06/20/19 20:00 06/20/19 23:18 DC 06/20/19 20:18 0.4 MG Vital Signs/I&O 4/20/20 19:54 Temp 37.1 Pulse 81 Resp 20 B/P (MAP) 129/77 (94) Pulse Ox 98 O2 Delivery Room Air Blood Pressure Mean: 70 Progress Progress Note : Progress Note GIVEN ASPIRIN AND NTG X 1 WITH COMPLETE RELIEF OF PAIN UNEVENTFUL ER STAY NO DETERIORATION IN PT'S CONDITION PT HAD NO FURTHER COMPLAINTS OF ANY KIND DURING ER STAY Initial ECG Impression Date: Jun 20, 2019 Initial ECG Impression Time: 20:00 Initial ECG Rate: 74 Initial ECG Rhythm: Normal Sinus Initial ECG Impression: Nonspecific Changes (INFERIOR Q WAVES) Diagnostic Imaging Comments CXR--FINDINGS: Heart size is borderline appearing more prominent from prior studies and this may be attributed to technique. Vasculature overall within normal limits. There is perhaps minimal infiltrate at the right lung base versus atelectasis from hypoventilation. IMPRESSION: 1. Question minimal atelectasis versus infiltrate at the right lung base. Borderline heart size without failure. -PER RADIOLOGIST REPORT AT 2057 Reviewed: Reviewed by Me Departure Communication (Admissions) 2102--SPOKE WITH DR. FRIAS. WILL SEE PT IN CONSULT. 2105--SPOKE WITH DR. CHUNG, HOSPITALIST FIELD AIDE FOR [facility]. ACCEPTS PT FOR ADMIT. Impression Primary Impression: Chest pain Additional Impressions: HX OF CAD WITH STENTS HX OF HTN UDS + FOR PCP Disposition: ADMITTED INPATIENT Condition: Improved Admissions Decision to Admit Reason: Admit from ER (General) Decision to Admit/Date: Jun 20, 2019 Time/Decision to Admit Time: 21:05 Departure-Patient Inst. Referrals: [facility] (PCP) Primary Care Physician KAYE STANFORD DO Jun 21, 2019 05:58
[2019-06-21 06:15] LABS: TRIGLYCERIDES 72 MG/DL (<150); VLDL CHOLESTEROL 14 MG/DL (5-40)
[2019-06-21 06:20] LABS: CHOLESTEROL 187 MG/DL (< 200); HDL CHOLESTEROL 46 MG/DL (40-60)
[2019-06-21] MEDS: GABAPENTIN 300 MG (NEURONTIN) CAP PO SCH ×3 (09:04→20:24)
[2019-06-21] MEDS: ASPIRIN 81 MG CHEW (CHILDREN'S ASA) PO SCH (09:04)
[2019-06-21] MEDS: NICOTINE 21 MG (NICODERM) PATCH TD SCH (09:05)
[2019-06-21] MEDS: TICAGRELOR 90 MG TABLET (BRILINTA) PO SCH ×2 (09:05→20:24)
[2019-06-21] MEDS ORDERED: GABA-490 PO (10:17)
[2019-06-21] MEDS ORDERED: MTP25TSR PO (10:17)
[2019-06-21] MEDS ORDERED: METR500T PO (10:17)
[2019-06-21] MEDS ORDERED: VENL150C98 PO (10:17)
[2019-06-21] MEDS ORDERED: VALS40TA9 PO (10:28)
[2019-06-21] MEDS ORDERED: IBUP-2473 PO (10:28)
[2019-06-21] MEDS ORDERED: FERR-84 PO (10:28)
[2019-06-21] MEDS ORDERED: TICA90TA PO (10:28)
[2019-06-21] MEDS ORDERED: ROPI0.5T4 PO (10:28)
[2019-06-21] MEDS ORDERED: CETI10TA21 PO (10:28)
--- NOTE | 2019-06-21 11:22 | NUR ---
SPOKE WITH THE PT, GOT A MED LIST FROM [facility] AND SPOKE WITH [facility] IN [place] TO COMPLETE THE MED REC THE FOLLOWING ARE FILL DATES FROM [facility]: 06-02-2019 GABAPENTIN 400MG #90/30DS 06-02-2019 REMERON 15MG #30/30DS 06-16-2019 VENLAFAXINE ER 150MG #30/30DS 06-17-2019 FLAGYL #14/7DS THE FOLLOWING MEDICATIONS ARE FROM THE REPOSITORY IN [place]: 06-06-2019 ATORVASTATIN 80MG #90/90DS 06-06-2019 BRILINTA 90MG #180/90DS 06-06-2019 METOPROLOL ER 25MG #90/90DS 06-06-2019 VALSARTAN 40MG #90/90DS 06-06-2019 REQUIP 0.5MG #90/90DS OTC MEDS: IRON IBUPROFEN ZYRTEC
--- NOTE | 2019-06-21 11:39 | Short Stay Summary-Hospitalist ---
History of Present Illness HPI/Chief Complaint CC: Chest pain/left arm pain HPI: This is a 48yoWF clinic patient of [facility] who has a h/o coronary stents in the past non-compliant with Cardiology f/u since that time who continues to smoke who presents to the ER with chest pain and left arm pain. Patient has not had an pain since ER gave her NTG. EST is scheduled and will await the plan from Cardiology. Source: patient Exam Limitations: no limitations Date Seen 06/21/19 Time Seen by a Provider: 10:00 Attending Physician Dary Bailey DO [facility], [facility] Referring Physician Date of Admission Jun 20, 2019 at 21:05 Home Medications & Allergies Home Medications Reviewed patient Home Medication Reconciliation performed by pharmacy medication reconciliations visitor services technician and/or nursing. Patients Allergies have been reviewed. Allergies Allergies Coded Allergies No Known Drug Allergies (Unverified11/16/17) Past Ruizohs-Icalhn-Tobllj Hx Past Med/Social Hx: Reviewed Nursing Past Med/Soc Hx, Reviewed and Corrections made Patient Social History Marrital Status: single Employed/Student: unemployed Alcohol Use: Past History (HISTORY OF ABUSE-"DRANK EVERYTHING UNTIL I PASSED OUT EVERY DAY" -CLAIMS NO RECENT USE, ON 06/20/19) Recreational Drug Use: Yes (ADMITS TO THC & METH USE, BUT CLAIMS NO USE"FOR LONG TIME"-UDS + FOR PCP ) Drug of Choice: ADMITS THC & METH USE-CLAIMS NO IV USE OR USE "FOR A LONG TIME"-UDS + PCP Smoking Status: Current Everyday Smoker (1 PPD) Type Used: Cigarettes (1 PPD) Recent Foreign Travel: No Contact w/other who traveled: No Recent Hopitalizations: Yes (June 2017 was intubated for alcohol intoxication) Recent Infectious Disease Expo: No Immunizations Up To Date Tetanus Booster (TDap): Unknown Pediatric: Yes Date of Pneumonia Vaccine: Dec 19, 2014 Seasonal Allergies Seasonal Allergies: No Past Medical History Surgeries: Section, Coronary Stent, Tubal Ligation Cardiac: Coronary Artery Disease, High Cholesterol, Hypertension : No Sexually Transmitted Disease: Yes (BEING TREATED FOR TRICHOMONAS 06/2019) HIV/AIDS: No Female Reproductive Disorders: Denies Tubal Ligation Gastrointestinal: Gastroesophageal Reflux Loss of Vision: Denies Hearing Impairment: Denies Psychosocial: Sleep Difficulties, Anxiety, Depression History of Blood Disorders: No Adverse Reaction to Blood Mckeon: No Family History Cardiovascular disease 19 FATHER, , Age:40's - 50, Onset:25's - 30 G8 SISTER, , Age:30's - 40, Onset:Adolescence CAD Under 55 Years Old, CVA SISTER OF [place] AT AGE 34, DAD OF [place] AT AGE 44--PER PT Review of Systems Constitutional: see HPI Cardiovascular: chest pain Physical Exam Physical Exam Vital Signs Vital Signs - First Documented 06/20/19 19:54 Temp 37.1 Pulse 81 Resp 20 B/P (MAP) 129/77 (94) Pulse Ox 98 O2 Delivery Room Air Capillary Refill : Less Than 3 Seconds Height, Weight, BMI Height: 5'2.00" Weight: 200lbs. 0oz. 90.699259kr; 34.88 BMI Method:Stated General Appearance: No Apparent Distress, WD/WN, Anxious, Chronically ill, Other (REEKS OF CIGARETTES) HEENT: PERRL/EOMI Neck: Full Range of Motion, Normal Inspection, Non Tender, Supple; No Carotid Bruit, No JVD Respiratory: Chest Non Tender, Normal Breath Sounds, No Accessory Muscle Use, No Respiratory Distress Cardiovascular: Regular Rate, Rhythm, No Edema, No JVD, No Murmur, Normal Peripheral Pulses Gastrointestinal: Normal Bowel Sounds, No Organomegaly, No Pulsatile Mass, Non Tender, Soft Extremity: Normal Capillary Refill, Normal Inspection, Normal Range of Motion, Non Tender, No Calf Tenderness, No Pedal Edema Neurologic/Psychiatric: Alert, Oriented x3, No Motor/Sensory Deficits, platen press operator II- XII Norm as Tested Skin: Normal Color, Warm/Dry, Tattoos/Piercings Results Results/Procedures Labs Laboratory Tests 06/20/19 20:04 06/21/19 03:10 Patient resulted labs reviewed. Short Stay Diagnosis Discharge Diagnosis-Short Stay Admission Diagnosis Chest pain Final Discharge Diagnosis Chest pain CAD w/h/o stents in past Smoker Non-compliance Conclusion Plan EST Cardiology appreciated Diagnosis/Problems Diagnosis/Problems (1) Chest pain (2) Abnormal stress test (3) Smoking history Status: Chronic (4) Mixed hyperlipidemia Status: Chronic Clinical Quality Measures AMI/AHF: ASA po Prior to arrival: No DVT/VTE Risk/Contraindication: Risk Factor Score Per Nursin RFS Level Per Nursing on Admit: 2=Moderate DARY BAILEY DO Jun 21, 2019 11:39
[2019-06-21] MEDS ORDERED: REGADENOSON 0.4 MG/5 ML SYR (LEXISCAN) IV ONE ×2 (13:03→13:15)
--- NOTE | 2019-06-21 13:34 | Consultation-Cardiology ---
HPI-Cardiology Cardiology Consultation: Date of Consultation 06/21/19 Date of Admission Attending Physician Dary Bailey DO Admitting Physician [facility] Consulting Physician Genna MELVIN MD HPI: Time Seen by a Provider: 10:00 Chief Complaint: Left upper extremity discomfort This is a 48-year-old patient who I've seen previously for chest pain and abnormal nuclear stress test. Coronary angiography was done on 10/2017 which sh owed severe triple-vessel disease. PCI was done to the LAD and left circumflex artery with drug-eluting stents. 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 Patient was discharged on long-term dual antiplatelet therapy. Patient presented with complains of left arm pain since 06/19/2019. 06/09 intensity. No significant exacerbating or relieving factors. However gets better with resting. The discomfort continued almost all day. Complained of sweating as well. Possible nausea but no significant shortness of breath. She continues to smoke. She has positive family history of [place]. She denies any current drug abuse. Review of Systems-Cardiology Review of Systems Constitutional: As described under HPI; No As described under HPI, No no symptoms reported, No chills, No fever, No lightheadedness Eyes: No As described under HPI, No no symptoms reported, No blindness, No blurred vision, No contact lenses, No drainage, No decreased acuity, No foreign body sensation, No pain, No vision change Ears/Nose/Throat: No As described under HPI, No no symptoms reported, No chronic hearing loss, No ear discharge, No ear pain, No nasal drainage, No ulcerations Respiratory: No no symptoms reported; As described under HPI; No As described under HPI, No cough, No orthopnea, No shortness of breath, No SOB with excertion Cardiovascular: No no symptoms reported; As described under HPI; No As described under HPI; chest pain (left upper extremity discomfort.); No edema, No irregular heart rate, No lightheadedness, No palpitations Gastrointestinal: No no symptoms reported, No As described under HPI, No abdomen distended, No abdominal pain, No blood streaked bowels, No constipation, No diarrhea, No nausea, No vomiting, No stool coloration changes Genitourinary: No As described under HPI, No burning, No dysuria, No discharge, No frequency, No flank pain, No hematuria, No urgency : Yes : No Skin: No rash, No skin related problems, No ulcerations Psychiatric/Neurological: No anxiety, No depression, No seizure, No focal weakness, No syncope Hematologic: No bleeding abnormalities [id number] Hx Patient Social History Alcohol Use: Past History (HISTORY OF ABUSE-"DRANK EVERYTHING UNTIL I PASSED OUT EVERY DAY" -CLAIMS NO RECENT USE, ON 06/20/19) Recreational Drug Use: Yes (ADMITS TO THC & METH USE, BUT CLAIMS NO USE"FOR LONG TIME"-UDS + FOR PCP ) Drug of Choice: ADMITS THC & METH USE-CLAIMS NO IV USE OR USE "FOR A LONG TIME"-UDS + PCP Smoking Status: Current Everyday Smoker (1 PPD) Type Used: Cigarettes (1 PPD) Recent Foreign Travel: No Recent Infectious Disease Expo: No Hospitalization with Isolation: Denies Immunizations Up To Date Tetanus Booster (TDap): Unknown Date of Pneumonia Vaccine: Dec 19, 2014 Past Medical History PMH As described under Assessment. Family Medical History Family History: Cardiovascular disease 19 FATHER, , Age:40's - 50, Onset:25's - 30 G8 SISTER, , Age:30's - 40, Onset:Adolescence Allergies and Home Medications Allergies Coded Allergies: No Known Drug Allergies (Unverified , 11/16/17) Home Medications Atorvastatin Calcium 80 Mg Tablet, 80 MG PO HS, (Reported) Cetirizine HCl 10 Mg Tablet, 10 MG PO DAILY, (Reported) Ferrous Sulfate 325 Mg Tablet, 325 MG PO DAILY, (Reported) Gabapentin 400 Mg Capsule, 400 MG PO TID, (Reported) Ibuprofen 200 Mg Tablet, 800 MG PO DAILY PRN for PAIN-MILD (1-4), (Reported) Metoprolol Succinate 25 Mg Tab.er.24h, 25 MG PO DAILY, (Reported) Metronidazole 500 Mg Tablet, 500 MG PO BID, (Reported) FILLED 06-17-2019 #14/7 DAY SUPPLY Mirtazapine 15 Mg Tablet, 15 MG PO HS, (Reported) Ropinirole HCl 0.5 Mg Tablet, 0.5 MG PO HS, (Reported) TAKES 1 TO 3 HOURS BEFORE BED Ticagrelor 90 Mg Tablet, 90 MG PO BID, (Reported) Valsartan 40 Mg Tablet, 40 MG PO DAILY, (Reported) Venlafaxine HCl 150 Mg Cap.er.24h, 150 MG PO DAILY, (Reported) Patient Home Medication List Home Medication List Reviewed: Yes Physical Exam-Cardiology Physical Exam Vital Signs/I&O 06/21/19 06/21/19 06/21/19 06/21/19 02:00 03:00 03:55 04:00 Pulse 67 65 56 Resp 15 15 16 B/P (MAP) 100/52 (68) 106/72 (83) 98/54 (69) Pulse Ox 98 O2 Delivery Room Air Room Air Room Air Room Air 06/21/19 06/21/19 06/21/19 06/21/19 05:00 07:00 08:00 08:00 Pulse 65 61 68 Resp 15 17 B/P (MAP) 97/57 (70) 124/68 (86) Pulse Ox 98 O2 Delivery Room Air Room Air Room Air 06/21/19 09:00 Pulse Ox 97 O2 Delivery Room Air 06/21/19 00:00 Intake Total 1000 ml Balance 1000 ml Capillary Refill : Less Than 3 Seconds Constitutional: appears stated age, AAO x 3; No apparent distress; well- developed, well-nourished HEENT: PERRL; No discharge; hearing is well preserved, oral hygience is good; No ulceration, No xanthelasmas are seen Neck: No carotid bruit; carotid pulses are 2 + bilaterally Respiratory: chest is bilaterally symmetric, lungs clear to auscultation Cardiovascular: regular rate-rhythm, S1 and S2 Gastrointestinal: soft, audible bowel sounds; No spleenomegaly Rectal: deferred Extremities: normal range of motion, non-tender, normal inspection; No clubbing, No cyanosis; no lower extremity edema bilateral; No significant edema Neurologic/Psychiatric: no motor/sensory deficits, alert, normal mood/affect, oriented x 3, power is 5/5 both on sides Skin: normal color; No rash, No ulcerations Data Review Labs Laboratory Tests 06/20/19 20:04: White Blood Count 9.2, Red Blood Count 4.05L, Hemoglobin 10.7L, Hematocrit 33L, Mean Corpuscular Volume 82, Mean Corpuscular Hemoglobin 26, Mean Corpuscular Hemoglobin Concent 32, Red Cell Distribution Width 20.1H, Platelet Count 339, Mean Platelet Volume 9.5, Neutrophils (%) (Auto) 66, Lymphocytes (%) (Auto) 25, Monocytes (%) (Auto) 7, Eosinophils (%) (Auto) 3, Basophils (%) (Auto) 0, Ne utrophils # (Auto) 6.0, Lymphocytes # (Auto) 2.3, Monocytes # (Auto) 0.6, Eosinophils # (Auto) 0.3, Basophils # (Auto) 0.0, Prothrombin Time 11.9L, INR Comment 0.9, Activated Partial Thromboplast Time 29, Sodium Level 139, Potassium Level 3.5L, Chloride Level 105, Carbon Dioxide Level 21, Anion Gap 13, Blood Urea Nitrogen 8, Creatinine 0.84, Estimat Glomerular Filtration Rate > 60, BUN/Creatinine Ratio 10, Glucose Level 90, Calcium Level 8.8, Corrected Calcium 8.7, Magnesium Level 1.9, Total Bilirubin 0.2, Aspartate Amino Transf (AST/SGOT) 20, Alanine Aminotransferase (ALT/SGPT) 19, Alkaline Phosphatase 105, Total Creatine Kinase 118, Creatine Kinase MB 1.3, Myoglobin 26.1, Troponin I < 0.028, B-Type Natriuretic Peptide 16.2, Total Protein 7.2, Albumin 4.1, Amylase Level 36, Lipase 38, Serum Test, Qualitative NEGATIVE, Serum Alcohol < 10 06/20/19 21:35: Urine Opiates Screen NEGATIVE, Urine Oxycodone Screen NEGATIVE, Urine Methadone Screen NEGATIVE, Urine Propoxyphene Screen NEGATIVE, Urine Barbiturates Screen NEGATIVE, Ur Tricyclic Antidepressants Screen NEGATIVE, Urine Phencyclidine Screen POSITIVEH, Urine Amphetamines Screen NEGATIVE, Urine Methamphetamines Screen NEGATIVE, Urine Benzodiazepines Screen NEGATIVE, Urine Cocaine Screen NEGATIVE, Urine Cannabinoids Screen NEGATIVE 06/20/19 23:58: Troponin I < 0.028 06/21/19 03:10: White Blood Count 6.8, Red Blood Count 3.83L, Hemoglobin 9.9L, Hematocrit 32L, Mean Corpuscular Volume 83, Mean Corpuscular Hemoglobin 26, Mean Corpuscular Hemoglobin Concent 31L, Red Cell Distribution Width 20.2H, Platelet Count 308, Mean Platelet Volume 9.8, Neutrophils (%) (Auto) 54, Lymphocytes (%) (Auto) 34, Monocytes (%) (Auto) 7, Eosinophils (%) (Auto) 4, Basophils (%) (Auto) 0, Neutrophils # (Auto) 3.7, Lymphocytes # (Auto) 2.3, Monocytes # (Auto) 0.5, Eosinophils # (Auto) 0.3, Basophils # (Auto) 0.0, Sodium Level 142, Potassium Level 4.0, Chloride Level 113H, Carbon Dioxide Level 19L, Anion Gap 10, Blood Urea Nitrogen 8, Creatinine 0.70, Estimat Glomerular Filtration Rate > 60, BUN/Creatinine Ratio 11, Glucose Level 95, Calcium Level 8.1L, Corrected Calcium 8.5, Total Bilirubin 0.2, Aspartate Amino Transf (AST/SGOT) 19, Alanine Aminotransferase (ALT/SGPT) 16, Alkaline Phosphatase 87, Total Protein 6.0L, Albumin 3.5 06/21/19 05:50: Troponin I < 0.028, Triglycerides Level 72, Cholesterol Level 187, LDL Cholesterol Direct 137H, VLDL Cholesterol 14, HDL Cholesterol 46 ECG Impression ECG Initial ECG Rhythm: Normal Sinus Comment Inferior Q waves suggesting old inferior [place]. A/P-Cardiology Assessment/Admission Diagnosis Prolonged chest pain/upper extremity discomfort. History of CAD, PCI, Active smoking, Hypertension, Hyperlipidemia Plan Prolonged chest pain/upper extremity discomfort. Negative serial troponin. EKG does not show any acute ST-T wave abnormalities. Echocardiogram and nuclear stress test is recommended. Continue dual antiplatelet therapy. History of CAD, PCI, dual antiplatelet therapy. Active smoking, smoking cessation was strongly recommended. Hypertension, continue valsartan. Hyperlipidemia, continue high-dose atorvastatin. Thank you for your consultation. Please call me if you have any questions. Lucas Melvin MD, FACP, FACC, FSCAI, FHRS, CCDS Interventional Cardiology Cardiac Electrophysiology Vascular Medicine and Endovascular Interventions Clinical Quality Measures AMI/AHF: ASA po Prior to arrival: No DVT/VTE Risk/Contraindication: Risk Factor Score Per Nursin RFS Level Per Nursing on Admit: 2=Moderate Genna MELVIN MD Jun 21, 2019 13:34
[2019-06-21] MEDS ORDERED: metroNIDAZOLE 500 MG (FLAGYL) TAB PO SCH (20:00)
[2019-06-21] MEDS: MIRTAZAPINE 15 MG (REMERON) TAB PO SCH (20:24)
[2019-06-21] MEDS: metroNIDAZOLE 500 MG (FLAGYL) TAB PO SCH (20:24)
[2019-06-22] VITALS (9 sets, daily range): BP systolic 105–153; BP diastolic 66–90
[2019-06-22] MEDS: metroNIDAZOLE 500 MG (FLAGYL) TAB PO SCH (07:50)
[2019-06-22] MEDS: ASPIRIN 81 MG CHEW (CHILDREN'S ASA) PO SCH (09:53)
[2019-06-22] MEDS: GABAPENTIN 300 MG (NEURONTIN) CAP PO SCH ×2 (09:54→14:22)
[2019-06-22] MEDS: TICAGRELOR 90 MG TABLET (BRILINTA) PO SCH ×2 (09:54→14:21)
[2019-06-22] MEDS: NICOTINE 21 MG (NICODERM) PATCH TD SCH (10:03)
[2019-06-22] MEDS ORDERED: fentaNYL INJECTION 100 MCG/2 ML AMP ONE (12:23)
[2019-06-22] MEDS ORDERED: HEParin (CATH LAB) 2,000 ML IV ONE (12:23)
[2019-06-22] MEDS ORDERED: NS IV 1000 ML 1,000 ML ONE (12:23)
[2019-06-22] MEDS ORDERED: MIDAZOLAM 5 MG/5 ML (VERSED) VIAL ONE (12:23)
[2019-06-22] MEDS ORDERED: LIDOCAINE 1% INJ 20 ML 20 ML VIAL ONE (12:23)
[2019-06-22] MEDS ORDERED: NITRO DRIP 25000 MCG/D5W 250 ML IV ONE (13:07)
[2019-06-22] MEDS ORDERED: VERAPAMIL 5 MG/2 ML (CALAN) VIAL IV ONE (13:07)
[2019-06-22] MEDS ORDERED: HEParin 1000 UNIT/ML (10ML VIAL) FOR BOLUS ONE (13:07)
[2019-06-22] MEDS ORDERED: NS IV 1000 ML 1,000 ML IV SCH ×2 (13:45→13:51)
--- NOTE | 2019-06-22 13:50 | Cardiology Progress Note ---
Cardiology SOAP Progress Note Objective: I&O/Vital Signs 06/22/19 06/22/19 06/22/19 06/22/19 04:00 04:00 06:43 08:00 Temp 36.9 Pulse 73 77 Resp 18 B/P (MAP) 105/66 (79) Pulse Ox 99 99 97 O2 Delivery Room Air Room Air Room Air 06/22/19 06/22/19 06/22/19 06/22/19 08:00 08:00 08:00 09:00 Temp 36.6 Pulse 71 74 Resp 14 17 B/P (MAP) 108/67 (81) 108/67 (81) Pulse Ox 97 O2 Delivery Room Air Room Air 06/22/19 06/22/19 06/22/19 06/22/19 09:00 12:00 12:00 12:36 Pulse 57 58 Resp 16 B/P (MAP) Pulse Ox 97 98 O2 Delivery Room Air Room Air Room Air 06/22/19 00:00 Intake Total 885 ml Output Total 850 ml Balance 35 ml Weight (Pounds): 200 Weight (Ounces): 0 Weight (Calculated Kilograms): [id number] Constitutional: appears stated age, AAO x 3; No apparent distress; well- developed, well-nourished Respiratory: chest is bilaterally symmetric, lungs clear to auscultation Cardiovascular: regular rate-rhythm, S1 and S2 Gastrointestional: soft, audible bowel sounds; No spleenomegaly Extremities: normal range of motion, non-tender, normal inspection; No clubbing, No cyanosis; no lower extremity edema bilateral; No significant edema Neurologic/Psychiatric: no motor/sensory deficits, alert, normal mood/affect, oriented x 3, power is 5/5 both on sides Skin: normal color; No rash, No ulcerations A/P: Assessment/Dx: Prolonged chest pain/upper extremity discomfort. History of CAD, PCI, Active smoking, Hypertension, Hyperlipidemia Plan: Prolonged chest pain/upper extremity discomfort. Negative serial troponin. EKG does not show any acute ST-T wave abnormalities. Echocardiogram and nuclear stress test is recommended. Continue dual antiplatelet therapy. History of CAD, PCI, dual antiplatelet therapy. Active smoking, smoking cessation was strongly recommended. Hypertension, continue valsartan. Hyperlipidemia, continue high-dose atorvastatin. Thank you for your consultation. Please call me if you have any questions. Lucas Melvin MD, FACP, FACC, FSCAI, FHRS, CCDS Interventional Cardiology Cardiac Electrophysiology Vascular Medicine and Endovascular Interventions Clinical Quality Measures AMI/AHF: ASA po Prior to arrival: Genna Chavez MD Jun 22, 2019 13:50
--- NOTE | 2019-06-22 13:51 | Cardiac Procedure Note-CS/ASA ---
Pre-Procedure Note Pre-Op Procedure Note H&P Reviewed The H&P was reviewed, patient examined and no changes noted. Date H&P Reviewed: Jun 22, 2019 Time H&P Reviewed: 11:50 Conscious Sedation Pre-Proced Time 11:50 ASA Score 3 For ASA 3 and 4: Consider anesthesia and medical clearance. Also, for patients with a history of failed moderate sedation consider anesthesia. Airway Lungs Heart ASA score ASA 1: a normal healthy patient ASA 2: a patient with a mild systemic disease (mid diabetes, controlled hypertension, obesity ASA 3: a patient with a severe systemic disease that limits activity (angina, COPD, prior Myocardial infarction) ASA 4: a patient with an incapacitating disease that is a constant threat to life (CHF, renal failure) ASA 5: a moribund patient not expected to survive 24 hrs. (ruptured aneurysm) ASA 6: a declared brain- patient whose organs are being harvested. For emergent operations, add the letter E after the classification Mallampati Classification Grade 1 Sedation Plan Analgesia, Amnesia, Plan communicated to team members, Discussed options with patient/fam, Discussed risks with patient/fam The patient is an appropriate candidate to undergo the planned procedure, sedation, and anesthesia. The patient immediately re-assessed prior to indication. Genna FRIAS MD Jun 22, 2019 13:51
--- NOTE | 2019-06-22 13:51 | Coronary Angiography Report ---
Coronary Angiography Report DATE OF PROCEDURE: 06/22/19 INDICATION: PREOPERATIVE DIAGNOSIS: POSTOPERATIVE DIAGNOSIS: HISTORY: Therefore, the patient was scheduled for coronary angiography. PROCEDURES PERFORMED: 1.Coronary angiography. 2.Left heart catheterization. COMPLICATIONS: None. SPECIMENS: None. ESTIMATED BLOOD LOSS: 10 mL ANESTHESIA: Conscious sedation ANTICOAGULATION: IV heparin CONTRAST: FLUOROSCOPY: FLOUROSCOPY DOSE: PROCEDURE DETAILS: The patient is a 48 female and was brought to the environmental laboratory technician after informed consent was taken. All the risks and complications were explained in detail; this included the risk of bleeding, vascular damage, stroke, [place] and even . The patient was draped and prepped in the usual sterile fashion. Access was gained in the right radial artery with a 6 Japanese sheath. Coronary angiography and left heart catheterization was performed with the [place] catheter. FINDINGS: 1.Left main: 2.LAD: 3.Left circumflex artery: 4.RCA: 5.Left heart catheterization: CONCLUSIONS: Lucas Melvin MD, FACP, FACC, [facility] Interventional Cardiology Genna MELVIN MD Jun 22, 2019 13:51
[2019-06-22] MEDS ORDERED: PATIENT MAY USE OWN MEDS, ALL PO SCH (14:00)
--- NOTE | 2019-06-22 16:05 | Discharge Summary ---
Discharge Summary Hospital Course Was the Problem List Reviewed?: Yes Problems/Dx: (1) Chest pain (2) Abnormal stress test (3) Smoking history Status: Chronic (4) Mixed hyperlipidemia Status: Chronic Hospital Course Date of Admission: Jun 20, 2019 at 21:05 Admission Diagnosis : [facility] Date of Discharge: 06/22/19 Discharge Diagnosis: chest pain, CAD Hospital Course: patient was admitted and monitored closely for ACS. Troponin negative. EST performed which was suspicious so cath performed no intervention required and patient was dc in good condition. Smoking cessation counseled Labs and Pending Lab Test: Home Meds Active Reported Ropinirole HCl 0.5 Mg Tablet 0.5 Mg PO HS TAKES 1 TO 3 HOURS BEFORE BED Valsartan 40 Mg Tablet 40 Mg PO DAILY Brilinta (Ticagrelor) 90 Mg Tablet 90 Mg PO BID Ibuprofen 200 Mg Tablet 800 Mg PO DAILY PRN Zyrtec (Cetirizine HCl) 10 Mg Tablet 10 Mg PO DAILY Iron (Ferrous Sulfate) 325 Mg Tablet 325 Mg PO DAILY Flagyl (Metronidazole) 500 Mg Tablet 500 Mg PO BID 7 Days FILLED 06-17-2019 #14/7 DAY SUPPLY Metoprolol Succinate 25 Mg Tab.er.24h 25 Mg PO DAILY Venlafaxine HCl ER (Venlafaxine HCl) 150 Mg Cap.er.24h 150 Mg PO DAILY Gabapentin 400 Mg Capsule 400 Mg PO TID Atorvastatin Calcium 80 Mg Tablet 80 Mg PO HS Remeron (Mirtazapine) 15 Mg Tablet 15 Mg PO HS Assessment/Pt Instructions [facility] 1 week Discharge Planning: <30 minutes discharge planning Discharge Instructions Discharge Diet: Cardiac Diet Activity as Tolerated: Yes Discharge Physical Examination Vital Signs Vital Signs Date Time Temp Pulse Resp B/P (MAP) Pulse Ox O2 Delivery O2 Flow Rate FiO2 06/22/19 15:15 88 20 137/78 (97) 100 Room Air 06/22/19 08:00 36.6 General Appearance: No Apparent Distress, WD/WN Allergies: Coded Allergies: No Known Drug Allergies (Unverified , 11/16/17) Discharge Summary Date of Admission Jun 20, 2019 at 21:05 Date of Discharge Discharge Date: Jun 22, 2019 Discharge Time: 1600 Admission Diagnosis Chest pain Discharge Diagnosis EST Cardiology appreciated (1) Chest pain (2) Abnormal stress test (3) Smoking history Status: Chronic (4) Mixed hyperlipidemia Status: Chronic Clinical Quality Measures AMI/AHF: ASA po Prior to arrival: No DVT/VTE Risk/Contraindication: Risk Factor Score Per Nursin RFS Level Per Nursing on Admit: 2=Moderate ESPINOZA CHUNG DO Jun 22, 2019 16:05
[2019-06-22] MEDS ORDERED: TICAGRELOR 90 MG TABLET (BRILINTA) PO SCH (21:00)
[2019-06-23] MEDS ORDERED: ASPIRIN E.C. 81 MG (ECOTRIN) TAB PO SCH (09:00)
== END 2019-06-22 16:05 | disposition home or self-care (01) ==
LOC: EDUNIT# 19:45 → ER 19:46 → ICU 21:05
PROVIDERS: ADMIT Internal Medicine; ATTEND Internal Medicine
DX: I25.10 Atherosclerotic heart disease of native coronary artery without angina pectoris (principal); I10 Essential (primary) hypertension; K21.9 Gastro-esophageal reflux disease without esophagitis; G47.9 Sleep disorder, unspecified; G25.81 Restless legs syndrome; E78.2 Mixed hyperlipidemia; E78.00 Pure hypercholesterolemia, unspecified; F41.9 Anxiety disorder, unspecified; F32.9 Major depressive disorder, single episode, unspecified; F17.210 Nicotine dependence, cigarettes, uncomplicated; Z79.82 Long term (current) use of aspirin; Z79.899 Other long term (current) drug therapy; Z98.51 Tubal ligation status
CPT/HCPCS: 36221; 36415; 71045; 78452; 80053; 80061; 80306; 80320; 82150; 82550; 82553; 83690; 83735; 83874; 83880; 84484; 84703; 85025; 85610; 85730; 93005; 93017; 93041; 93306; 93458; 96360

== ENCOUNTER 2020-05-08 17:49 | Observation (INO) | payer SELFPAY ==
[~2020-05-08] VITALS: Ht 157.5 cm; Wt 110.4 kg
[~2020-05-08 17:49] MED LIST changes: +CETI10TA49 PO; +FERR-84 PO; +GABA-490 PO; +IBUP-2473 PO; -LISI-556 PO; +LISI-729 PO; +METR500T PO; +MIRT-96 PO; -MIRT15TA PO; +MTP25TSR PO; +ROPI0.5T4 PO; +VALS40TA9 PO; +VENL150C98 PO
[2020-05-08 18:16] LABS: BASOPHILS % (AUTO) 0 % (0-10); EOSINOPHILS # (AUTO) 0.4 10^3/uL (0.0-0.3); EOSINOPHILS % (AUTO) 4 % (0-10); HEMATOCRIT 37 % (35-52); HEMOGLOBIN 11.8 g/dL (11.5-16.0); LYMPHOCYTES # (AUTO) 2.7 10^3/uL (1.0-4.0); LYMPHOCYTES % (AUTO) 29 % (12-44); MEAN CORPUSCULAR HEMOGLOBIN 31 pg (25-34); MEAN CORPUSCULAR HGB CONC 32 g/dL (32-36); MEAN CORPUSCULAR VOLUME 95 fL (80-99); MONOCYTES # (AUTO) 0.6 10^3/uL (0.0-1.0); MONOCYTES % (AUTO) 6 % (0-12); NEUTROPHILS # (AUTO) 5.4 10^3/uL (1.8-7.8); NEUTROPHILS % (AUTO) 60 % (42-75); PLATELET COUNT 286 10^3/uL (130-400); WHITE BLOOD COUNT 9.1 10^3/uL (4.3-11.0)
[2020-05-08 18:18] LABS: CHLORIDE 107 MMOL/L (98-107); POTASSIUM 3.9 MMOL/L (3.6-5.0); SODIUM 138 MMOL/L (135-145)
[2020-05-08 18:19] LABS: GLUCOSE 132 MG/DL (70-105)
[2020-05-08 18:21] LABS: CARBON DIOXIDE 21 MMOL/L (21-32)
[2020-05-08 18:23] LABS: CREATININE SERUM 0.75 MG/DL (0.60-1.30); GFR ESTIMATED > 60
[2020-05-08 18:24] LABS: BUN/CREATININE RATIO 7
[2020-05-08 18:26] LABS: CREATINE KINASE 119 U/L (29-168)
--- NOTE | 2020-05-08 18:41 | ED Chest Pain ---
General Chief Complaint: Chest Pain Stated Complaint: CP/BILAT LEG PAIN Nursing Triage Note: Pt ambulates into ER with complaint of intermittent chest pain x2 days. Pt st ates that she is also having some fatigue. Nursing Sepsis Screen: No Definite Risk Source: patient Exam Limitations: no limitations History of Present Illness Date Seen by Provider: May 08, 2020 Time Seen by Provider: 18:10 Initial Comments Patient is a six 49-year-old female who presents to the emergency department today with bilateral lower leg aches and pains as well as some chest pain that has been going on intermittently for the last week. Patient states that she has had these pains in her legs for approximately a month. She states she saw her primary care provider and was prescribed a pain patch for the discomfort but she discontinued using it secondary to it did not seem to be helping. Patient states that this is the primary reason why she came to the emergency room and the chest pain is incidental. Patient points to the left side of her chest. She states it radiates a little bit into her back. She denies any other radiation of the pain. She states that she has been a little bit nauseated with it and mildly short of breath. It comes and goes with and without exertion. She states it last several minutes and then goes away. Patient has a history of 2 prior stent placements. 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 She denies having any chest pain at the time of my evaluation. No recent illnesses such as fevers, chills, cough. No Covid concerns. Patient states that she has not had any vomiting or diarrhea. All other review of systems reviewed and negative except as stated. 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 today) NTG SL CONCRETE BOOM PUMP OPERATOR: No Allergies and Home Medications Allergies Coded Allergies: No Known Drug Allergies (Unverified , 11/16/17) Home Medications Atorvastatin Calcium 80 Mg Tablet, 80 MG PO HS, (Reported) Cetirizine HCl 10 Mg Tablet, 10 MG PO DAILY, (Reported) Ferrous Sulfate 325 Mg Tablet, 325 MG PO DAILY, (Reported) Gabapentin 400 Mg Capsule, 400 MG PO TID, (Reported) Ibuprofen 200 Mg Tablet, 800 MG PO DAILY PRN for PAIN-MILD (1-4), (Reported) Metoprolol Succinate 25 Mg Tab.er.24h, 25 MG PO DAILY, (Reported) Metronidazole 500 Mg Tablet, 500 MG PO BID, (Reported) FILLED 06-17-2019 #14/7 DAY SUPPLY Mirtazapine 15 Mg Tablet, 15 MG PO HS, (Reported) Ropinirole HCl 0.5 Mg Tablet, 0.5 MG PO HS, (Reported) TAKES 1 TO 3 HOURS BEFORE BED Ticagrelor 90 Mg Tablet, 90 MG PO BID, (Reported) Valsartan 40 Mg Tablet, 40 MG PO DAILY, (Reported) Venlafaxine HCl 150 Mg Cap.er.24h, 150 MG PO DAILY, (Reported) Patient Home Medication List Home Medication List Reviewed: Yes Review of Systems Review of Systems Constitutional: see HPI EENTM: No Symptoms Reported Respiratory: No Symptoms Reported Cardiovascular: Chest Pain Gastrointestinal: No Symptoms Reported Genitourinary: No Symptoms Reported Musculoskeletal: muscle pain (Bilateral lower leg pain) Skin: no symptoms reported Endocrine: Increased Thrist All Other Systems Reviewed Negative Unless Noted: Yes Past Rpxtied-Xzsixh-Wtdfxn Hx Patient Social History Drug of Choice: ADMITS THC & METH USE-CLAIMS NO IV USE OR USE "FOR A LONG TIME"-UDS + PCP Type Used: Cigarettes Recent Infectious Disease Expo: No Recent Hopitalizations: Yes (June 2017 was intubated for alcohol intoxication) Immunizations Up To Date Tetanus Booster (TDap): Unknown PED Vaccines UTD: Yes Date of Pneumonia Vaccine: Dec 19, 2014 Seasonal Allergies Seasonal Allergies: No Past Medical History Surgeries: Yes ( X 2; CARDIAC CATH WITH STENTS X 2 10/2017;TEETH REMOVED) Section, Coronary Stent, Tubal Ligation Respiratory: No Cardiac: Yes (STENTS TO LAD & L CIRCUMFLEX; TOTAL OCCLUSION OF RCA WITH COLLATERALS) Coronary Artery Disease, High Cholesterol, Hypertension Neurological: Yes (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; RESTLESS LEG SYNDROME) Female Reproductive Disorders: Denies 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 Sexually Transmitted Disease: Yes (BEING TREATED FOR TRICHOMONAS 06/2019) HIV/AIDS: No Genitourinary: No Gastrointestinal: Yes (occasional GERD) Gastroesophageal Reflux Musculoskeletal: Yes (PLANTAR FASCITIS; RESTLESS LEG SYNDROME) Endocrine: No HEENT: No Loss of Vision: Denies Hearing Impairment: Denies Cancer: No Psychosocial: Yes (POLYSUBSTANCE ABUSE) Sleep Difficulties, Anxiety, Depression Integumentary: No (cold sore) Blood Disorders: No Adverse Reaction/Blood Tranf: No Family Medical History Cardiovascular disease 19 FATHER, , Age:40's - 50, Onset:25's - 30 G8 SISTER, , Age:30's - 40, Onset:Adolescence CAD Under 55 Years Old, CVA SISTER OF [place] AT AGE 34, DAD OF [place] AT AGE 44--PER PT Physical Exam Vital Signs Vital Signs - First Documented 05/08/20 18:10 Temp 36.6 Pulse 78 Resp 19 B/P (MAP) 126/64 (84) Pulse Ox 99 Capillary Refill : Less Than 3 Seconds Height, Weight, BMI Height: 5'2.00" Weight: 200lbs. 0oz. 90.737181bs; 38.00 BMI Method:Stated General Appearance: No Apparent Distress, WD/WN HEENT: PERRL/EOMI Neck: Normal Inspection Respiratory: Lungs Clear, Normal Breath Sounds Cardiovascular: Regular Rate, Rhythm, No Murmur, Other (Mild nonpitting lower extremity edema) Gastrointestinal: Non Tender, Soft Extremity: Normal Capillary Refill, Pedal Edema Neurologic/Psychiatric: Alert, Oriented x3, No Motor/Sensory Deficits, Normal Mood/Affect, regional director of admissions II-XII Norm as Tested Skin: Normal Color, Warm/Dry Progress/Results/Core Measures Results/Orders Lab Results Laboratory Tests Test 05/08/20 18:01 Range/Units White Blood Count 9.1 4.3-11.0 10^3/uL Red Blood Count 3.83 3.80-5.11 10^6/uL Hemoglobin 11.8 11.5-16.0 g/dL Hematocrit 37 35-52 % Mean Corpuscular Volume 95 80-99 fL Mean Corpuscular Hemoglobin 31 25-34 pg Mean Corpuscular Hemoglobin Concent 32 32-36 g/dL Red Cell Distribution Width 13.2 10.0-14.5 % Platelet Count 286 130-400 10^3/uL Mean Platelet Volume 10.0 9.0-12.2 fL Immature Granulocyte % (Auto) 0 % Neutrophils (%) (Auto) 60 42-75 % Lymphocytes (%) (Auto) 29 12-44 % Monocytes (%) (Auto) 6 0-12 % Eosinophils (%) (Auto) 4 0-10 % Basophils (%) (Auto) 0 0-10 % Neutrophils # (Auto) 5.4 1.8-7.8 10^3/uL Lymphocytes # (Auto) 2.7 1.0-4.0 10^3/uL Monocytes # (Auto) 0.6 0.0-1.0 10^3/uL Eosinophils # (Auto) 0.4 H 0.0-0.3 10^3/uL Basophils # (Auto) 0.0 0.0-0.1 10^3/uL Immature Granulocyte # (Auto) 0.0 0.0-0.1 10^3/uL Sodium Level 138 135-145 MMOL/L Potassium Level 3.9 3.6-5.0 MMOL/L Chloride Level 107 98-107 MMOL/L Carbon Dioxide Level 21 21-32 MMOL/L Anion Gap 10 5-14 MMOL/L Blood Urea Nitrogen 5 L 7-18 MG/DL Creatinine 0.75 0.60-1.30 MG/DL Estimat Glomerular Filtration Rate > 60 BUN/Creatinine Ratio 7 Glucose Level 132 H 70-105 MG/DL Calcium Level 8.0 L 8.5-10.1 MG/DL Total Creatine Kinase 119 29-168 U/L Creatine Kinase MB 5.0 <6.6 NG/ML Troponin I < 0.028 <0.028 NG/ML B-Type Natriuretic Peptide 78.0 <100.0 PG/ML My Orders Orders - EDVIN GARCIA MD Ed Iv/Invasive Line Start (05/08/20 18:09) Cbc With Automated Diff (05/08/20 18:09) Basic Metabolic Panel (05/08/20 18:09) Creatine Kinase (05/08/20 18:09) Creatine Kinase Mb (05/08/20 18:09) Troponin I (05/08/20 18:09) BNP (05/08/20 18:09) Chest 1 View, Ap/Pa Only (05/08/20 18:09) Ekg Tracing (05/08/20 18:09) Aspirin Chewable Tablet (Baby Aspirin Ch (05/09/20 09:00) Aspirin Chewable Tablet (Baby Aspirin Ch (05/08/20 18:59) Aspirin Chewable Tablet (Baby Aspirin Ch (05/08/20 19:02) Vital Signs/I&O 05/08/20 18:10 Temp 36.6 Pulse 78 Resp 19 B/P (MAP) 126/64 (84) Pulse Ox 99 Blood Pressure Mean: 84 Progress Progress Note : Time: 19:58 Progress Note Case discussed with Dr. Bailey who accepts the patient for admission at this time. We will also discuss with cardiology in preparation for possible stress test tomorrow Dr. Jalloh recommends continuing home medications including aspirin and Brilinta. Initial ECG Impression Date: May 08, 2020 Initial ECG Impression Time: 16:10 Initial ECG Rate: 75 Initial ECG Rhythm: Normal Sinus Initial ECG Intervals: Normal Initial ECG Impression: Normal Initial ECG Comparisson: No Previous ECG Available Diagnostic Imaging Diagonstic Imaging: Xray Plain Films/CT/US/NM/MRI: chest Comments [facility] [place] NAME: NORI WALL [facility] REC#: [id number] PT STATUS: REG ER : 1970 PHYSICIAN: EDVIN GARCIA MD ADMIT DATE: 05/08/20/ER Draft Date of Exam:05/08/20 CHEST 1 VIEW, AP/PA ONLY INDICATION: Chest pain Portable chest 6:37 PM Heart size and pulmonary vascularity are normal. Lungs are clear. There are no effusions or pneumothoraces. IMPRESSION: Negative chest Dictated on workstation # [id number] Dict: 05/08/20 1839 Trans: 05/08/20 1847 TENISHA [id number] Interpreted by: PARRISH PEREZ MD Electronically signed by: Departure Communication (Admissions) Time/Spoke to Admitting Phy: 19:[address] Bailey Time/Spoke to Consulting Phy: 20:[address] Jalloh Impression Primary Impression: Chest pain Qualified Codes: R07.9 - Chest pain, unspecified Additional Impression: Myalgia Disposition: ADMITTED INPATIENT Condition: Stable Admissions Decision to Admit Reason: Admit from ER (General) Decision to Admit/Date: May 08, 2020 Time/Decision to Admit Time: 20:08 Departure-Patient Inst. Ref[place]: [facility] [place] Primary Care Physician EDVIN GARCIA MD May 08, 2020 18:41
--- NOTE | 2020-05-08 18:48 | Diagnostic Imaging Report ---
INDICATION: Chest pain Portable chest 6:37 PM Heart size and pulmonary vascularity are normal. Lungs are clear. There are no effusions or pneumothoraces. IMPRESSION: Negative chest Dictated by: Dictated on workstation # [id number]
[2020-05-08] MEDS ORDERED: ASPIRIN 81 MG CHEW (CHILDREN'S ASA) ONE ×2 (18:59→19:02)
[2020-05-08] MEDS ORDERED: NAPROXEN 250 MG (NAPROSYN) TABLET PO ONE (20:15)
[2020-05-08] MEDS ORDERED: ACETAMINOPHEN 500 MG TAB (TYLENOL) PO PRN (21:00)
[2020-05-08] MEDS ORDERED: MELATONIN 3 MG TABLET PO PRN (21:00)
[2020-05-08] MEDS ORDERED: CALCIUM CARBONATE 500 MG (TUMS) TAB.CHEW PO PRN (21:00)
[2020-05-08] MEDS ORDERED: DOCUSATE SODIUM 100 MG (COLACE) CAP PO PRN (21:00)
[2020-05-08] MEDS ORDERED: diphenhydrAMINE 25 MG TAB (BENADRYL) PO PRN (21:00)
[2020-05-08] MEDS ORDERED: ONDANSETRON 4 MG/2 ML (SDV) Z0FRAN IVP PRN (21:00)
[2020-05-08] MEDS ORDERED: ALPRAZolam 0.25 MG (XANAX) TAB PO PRN (21:00)
[2020-05-08] MEDS ORDERED: LOPERAMIDE 2 MG (IMODIUM) TABLET PO PRN (21:00)
[2020-05-08 21:46] VITALS: BP 122/79
[2020-05-08 21:47] VITALS: BP 122/79
[2020-05-08] MEDS ORDERED: CATHETER FLUSH 10 ML SYR IV PRN (22:15)
[2020-05-08] MEDS ORDERED: NITROGLYCERIN 0.4 MG SL TABS BTL 25'S SL PRN (22:15)
[2020-05-08 22:43] VITALS: BP 126/64
[2020-05-08] MEDS ORDERED: RT-ALBUTEROL SULF 2.5 MG/3 ML PRE-MIX VIAL INH PRN (23:00)
[2020-05-08] MEDS: HYDROcodone/APAP 5 MG/325 MG (LORTAB) TAB PO PRN (23:03)
[2020-05-08] MEDS: SENNA W/DOCUSATE (SENOKOT S) TABLET PO SCH (23:03)
[2020-05-08] MEDS: TICAGRELOR 90 MG TABLET (BRILINTA) PO SCH (23:03)
[2020-05-08 23:07] VITALS: BP 97/60
[2020-05-08 23:35] VITALS: BP 112/58
[2020-05-09 00:10] VITALS: BP 95/57
[2020-05-09 04:00] VITALS: BP 113/68
[2020-05-09] MEDS: HYDROcodone/APAP 5 MG/325 MG (LORTAB) TAB PO PRN ×2 (05:48→10:11)
[2020-05-09 05:49] VITALS: BP 119/74
[2020-05-09] MEDS ORDERED: CATHETER FLUSH 10 ML SYR IV SCH (06:00)
[2020-05-09 08:00] VITALS: BP 121/79
[2020-05-09] MEDS: TICAGRELOR 90 MG TABLET (BRILINTA) PO SCH (08:05)
[2020-05-09] MEDS: SENNA W/DOCUSATE (SENOKOT S) TABLET PO SCH (08:05)
[2020-05-09] MEDS ORDERED: ASPIRIN 81 MG CHEW (CHILDREN'S ASA) PO SCH (09:00)
[2020-05-09] MEDS ORDERED: ASPIRIN E.C. 81 MG (ECOTRIN) TAB PO SCH (09:00)
[2020-05-09] MEDS ORDERED: ASPI-1238 PO (10:20)
--- NOTE | 2020-05-09 10:27 | Short Stay Summary-Hospitalist ---
History of Present Illness HPI/Chief Complaint CC: Chest pain HPI: This is a 49yoWF who smokes who presented to the ER with chest pain found to be in need of risk stratification along with smoking cessation counseling. Cardiology did evaluate her found to have no indications for cardiac catheterization and will have an outpatient cardiac stress test. Nicotine patc hes were sent into the pharmacy for her to help cease smoking. Source: patient, RN/MD Exam Limitations: no limitations Date Seen 05/09/20 Time Seen by a Provider: 09:30 Attending Physician Dary Bailey DO [facility] [place] Referring Physician Date of Admission May 08, 2020 at 20:04 Home Medications & Allergies Home Medications Reviewed patient Home Medication Reconciliation performed by pharmacy medication reconciliations die technician and/or nursing. Patients Allergies have been reviewed. Allergies Allergies Coded Allergies No Known Drug Allergies (Unverified11/16/17) Past Fghivcm-Epfrmv-Ngdzja Hx Past Med/Social Hx: Reviewed Nursing Past Med/Soc Hx, Reviewed and Corrections made Patient Social History Marrital Status: single Employed/Student: unemployed Alcohol Use: Occasionally Uses Recreational Drug Use: No Drug of Choice: ADMITS THC & METH USE-CLAIMS NO IV USE OR USE "FOR A LONG TIME"-UDS + PCP Smoking Status: Current Everyday Smoker Type Used: Cigarettes Recent Foreign Travel: No Contact w/other who traveled: No Recent Hopitalizations: Yes (June 2017 was intubated for alcohol intoxication) Recent Infectious Disease Expo: No Immunizations Up To Date Tetanus Booster (TDap): Unknown Pediatric: Yes Date of Pneumonia Vaccine: Dec 19, 2014 Date of Influenza Vaccine: Apr 27, 2020 Seasonal Allergies Seasonal Allergies: No Past Medical History Surgeries: Section, Coronary Stent, Tubal Ligation Cardiac: Coronary Artery Disease, High Cholesterol, Hypertension Sexually Transmitted Disease: Yes (BEING TREATED FOR TRICHOMONAS 06/2019) HIV/AIDS: No Female Reproductive Disorders: Denies Tubal Ligation Gastrointestinal: Gastroesophageal Reflux Loss of Vision: Denies Hearing Impairment: Denies Psychosocial: Sleep Difficulties, Anxiety, Depression History of Blood Disorders: No Adverse Reaction to Blood Mckeon: No Family History Cardiovascular disease 19 FATHER, , Age:40's - 50, Onset:25's - 30 G8 SISTER, , Age:30's - 40, Onset:Adolescence CAD Under 55 Years Old, CVA SISTER OF [place] AT AGE 34, DAD OF [place] AT AGE 44--PER PT Review of Systems Constitutional: see HPI Cardiovascular: chest pain Physical Exam Physical Exam Vital Signs Vital Signs - First Documented 05/08/20 05/08/20 05/08/20 18:10 21:45 22:43 Temp 36.6 Pulse 78 Resp 19 B/P (MAP) 126/64 (84) Pulse Ox 99 O2 Delivery Room Air FiO2 21 Capillary Refill : Less Than 3 Seconds Height, Weight, BMI Height: 5'2.00" Weight: 200lbs. 0oz. 90.742189cz; 44.50 BMI Method:Stated General Appearance: No Apparent Distress, WD/WN, Chronically ill HEENT: PERRL/EOMI Neck: Normal Inspection Respiratory: Lungs Clear, Normal Breath Sounds Cardiovascular: Regular Rate, Rhythm, No Murmur, Other (Mild nonpitting lower extremity edema) Gastrointestinal: Non Tender, Soft Extremity: Normal Capillary Refill, Pedal Edema Neurologic/Psychiatric: Alert, Oriented x3, No Motor/Sensory Deficits, Normal Mood/Affect, general ophthalmologist II-XII Norm as Tested Skin: Normal Color, Warm/Dry Results Results/Procedures Labs Laboratory Tests 05/08/20 18:01 Patient resulted labs reviewed. Short Stay Diagnosis Discharge Diagnosis-Short Stay Admission Diagnosis Chest pain CAD SMoker HTN Final Discharge Diagnosis Chest pain with no sign of ACS CAD SMoker HTN Conclusion Plan Stress test as outpatient Diagnosis/Problems Diagnosis/Problems (1) Chest pain Qualifiers: Qualified Codes: R07.9 - Chest pain, unspecified Clinical Quality Measures AMI/AHF: ASA po Prior to arrival: Yes (1 baby aspirin today) DARY BAILEY DO May 09, 2020 10:27
[2020-05-09] MEDS ORDERED: NICO-685 TD (10:40)
[2020-05-09] MEDS ORDERED: CARI1.5C PO (11:18)
[2020-05-09] MEDS ORDERED: DESV100T PO (11:18)
[2020-05-09] MEDS ORDERED: EVOL140S2 SQ (11:18)
[2020-05-09] MEDS ORDERED: GBPN600T PO (11:18)
[2020-05-09] MEDS ORDERED: BUSP15TA60 PO (11:18)
--- NOTE | 2020-05-09 18:36 | Consultation-Cardiology ---
HPI-Cardiology Cardiology Consultation: Date of Consultation 05/09/20 Time Seen by a Provider: 09:30 Date of Admission Attending Physician Dary Bailey DO Admitting Physician [place] Consulting Physician STUART SALGADO MD, MA, FACP, FACC, [facility] [place] HPI: Chief Complaint: CC: Chest discomfort HPI 49 yo woman with a h/o CAD and continuing chronic, intermittent chest discomfort who was admitted to Dr Bailey on 05/08/20 with L axillary pain that lasted many hours and gradually resolved. It did not radiate. It was mild to mod, sometimes sharp, sometimes dull, w/o any specific aggravating or relieving factors, w/o associated symptoms. It has resolved in the hospital and has not recurred. She denies shortness of breath or palp or syncope or swelling Review of Systems-Cardiology Review of Systems Constitutional: No malaise, No tiredness, No weight loss, No weight gain Eyes: No vision change Ears/Nose/Throat: No ear discharge, No nasal drainage, No recent hearing loss Respiratory: As described under HPI Cardiovascular: As described under HPI Gastrointestinal: No constipation, No diarrhea, No nausea, No vomiting Genitourinary: No dysuria, No hematuria, No urine frequency changes Musculoskeletal: No back pain, No joint pain Skin: No rash, No ulcerations Psychiatric/Neurological: No seizure, No focal weakness, No syncope Hematologic: No bleeding abnormalities All Other Systems Reviewed Negative Unless Noted: Yes PNV-Araocp-Bkdpir Hx Patient Social History Smoking Status: Current Everyday Smoker Have you traveled recently?: No Alcohol Use?: No Pt feels they are or have been: No Tobacco type used: Cigarettes Immunizations Up To Date Tetanus Booster (TDap): Unknown Date of Pneumonia Vaccine: Dec 19, 2014 Date of Influenza Vaccine: Apr 27, 2020 Past Medical History PMH As described under Assessment. Family Medical History Family History: Cardiovascular disease 19 FATHER, , Age:40's - 50, Onset:25's - 30 G8 SISTER, , Age:30's - 40, Onset:Adolescence Allergies and Home Medications Allergies Coded Allergies: No Known Drug Allergies (Unverified , 11/16/17) Home Medications Aspirin 81 Mg Tablet., 81 MG PO DAILY Prescribed by: SHO GO on 05/09/20 1020 Atorvastatin Calcium 80 Mg Tablet, 80 MG PO HS, (Reported) Buspirone HCl 15 Mg Tablet, 15 MG PO BID, (Reported) Cariprazine Hydrochloride 1.5 Mg Capsule, 1.5 MG PO HS, (Reported) Cetirizine HCl 10 Mg Tablet, 10 MG PO DAILY, (Reported) Desvenlafaxine Succinate 100 Mg Tab.er.24h, 100 MG PO DAILY, (Reported) Evolocumab 140 Mg/1 Ml Syringe, 140 MG SQ EVERY 2 WEEKS, (Reported) Gabapentin 600 Mg Tablet, 600 MG PO TID, (Reported) Metoprolol Succinate 25 Mg Tab.er.24h, 25 MG PO DAILY, (Reported) Mirtazapine 15 Mg Tablet, 15 MG PO HS, (Reported) Nicotine 1 Each Patch.td24, 21 MG TD DAILY Prescribed by: DARY BAILEY on 05/09/20 1040 Ticagrelor 90 Mg Tablet, 90 MG PO BID, (Reported) Valsartan 40 Mg Tablet, 40 MG PO DAILY, (Reported) Patient Home Medication List Home Medication List Reviewed: Yes Physical Exam-Cardiology Physical Exam Vital Signs/I&O 05/09/20 05/09/20 05/09/20 06:41 08:00 08:00 Temp 36.4 Pulse 93 65 Resp 18 B/P (MAP) 121/79 (93) Pulse Ox 96 96 O2 Delivery Room Air 05/09/20 00:00 Intake Total 400 ml Output Total 200 ml Balance 200 ml Capillary Refill : Less Than 3 Seconds Constitutional: AAO x 3, well-developed, well-nourished HEENT: EOMI, hearing is well preserved, xanthelasmas are seen Neck: carotid pulses are 2 + bilaterally, with good upstrokes Respiratory: No accessory muscle use; other (good bilateral air entry) Cardiovascular: regular rate-rhythm, S1 and S2 Gastrointestinal: No tender, No guarding, No rebound; audible bowel sounds Extremities: No clubbing, No cyanosis, No significant edema Neurologic/Psychiatric: oriented x 3, other (moves all limbs equally) Skin: No rash on exposed areas, No ulcerations on exposed areas Data Review Labs Laboratory Tests 05/09/20 00:15: Troponin I < 0.028 05/09/20 07:00: Troponin I < 0.028 Laboratory Tests 05/08/20 18:01 A/P-Cardiology Assessment/Admission Diagnosis Nonspecific chest discomfort without any evidence of ACS CAD - cath 11/19/2017 showed 80% mid LAD stenosis and 80% mid left circumflex artery stenosis and total occlusion of the RCA with good collaterals being supplied from the left coronary system. PCI to the mid left circumflex: Xience Columba 3.0x28mm at 10 chong for 32 seconds. LAD Xience Columba 2.5X 18 mm stent. Long- term dual antiplatelet therapy was started. Patient was also started on high- dose Lipitor. - Repeat cath on 06/22/2019 which showed known occluded RCA with patent stents in the LAD and circumflex artery Cardiac risk factor - Tobacco use (smoking cigarettes) - hyperlipidemia - obesity (BMI 44.5) Discussion and Recomendations * No evidence of ACS but has risk factors and has h/o CAD. Cor risk stratification advised. She doesn't wish to stay for a stress test. Feels well and wishes to go home. States will have it done as an outpt. Advised to return to ER for any recurrence of symptoms or new symptoms * Advised compliance with meds * Advised risk factor modification. In particular, we advised her to quit smoking immediately and completely * She understands all of the above and states will comply Clinical Quality Measures AMI/AHF: ASA po Prior to arrival: Yes (1 baby aspirin today) STUART SALGADO MD FACP FAC CCDS May 09, 2020 18:36
[2020-05-10] MEDS ORDERED: REGADENOSON 0.4 MG/5 ML SYR (LEXISCAN) IV ONE (06:00)
== END 2020-05-09 10:30 | disposition home or self-care (01) ==
LOC: EDUNIT# 17:49 → ER 17:51 → UNDOADMOB 20:04 → CSD 20:04 → UNDODISOB 05-09 12:35
PROVIDERS: ADMIT Internal Medicine; ATTEND Internal Medicine
DX: R07.89 Other chest pain (principal); I25.10 Atherosclerotic heart disease of native coronary artery without angina pectoris; I10 Essential (primary) hypertension; K21.9 Gastro-esophageal reflux disease without esophagitis; M79.10 Myalgia, unspecified site; E78.00 Pure hypercholesterolemia, unspecified; F17.210 Nicotine dependence, cigarettes, uncomplicated; F41.9 Anxiety disorder, unspecified; F32.9 Major depressive disorder, single episode, unspecified; Z79.899 Other long term (current) drug therapy; Z95.5 Presence of coronary angioplasty implant and graft; Z98.51 Tubal ligation status; Z79.82 Long term (current) use of aspirin
CPT/HCPCS: 36415; 71045; 80048; 82550; 82553; 83880; 84484; 85025; 93005

== ENCOUNTER → 2020-05-15 | Outpatient (CLI) | payer SELFPAY ==
[~2020-05-15] VITALS: Ht 157 cm; Wt 90.0 kg
[~2020-05-15] MED LIST changes: +ASPI-1238 PO; +BUSP15TA60 PO; +CARI1.5C PO; +DESV100T PO; +EVOL140S2 SQ; +GBPN600T PO; +NICO-685 TD; +REGADENOSON 0.4 MG/5 ML SYR (LEXISCAN) IV ONE
[2020-05-15] MEDS: CATHETER FLUSH 10 ML SYR IV PRN ×2 (07:31→09:05)
[2020-05-15 08:59] VITALS: BP 119/92
[2020-05-15 09:07] VITALS: BP 104/74
--- NOTE | 2020-05-15 15:33 | STRESS TEST ---
DATE OF SERVICE: 05/15/2020 RESTING AND POST REGADENOSON TECHNETIUM-99M TETROFOSMIN SPECT CT IMAGING ORDERING PHYSICIAN: Cheri Dickey APRN PRIMARY PHYSICIAN: [facility]. Baseline images were carried out after injection of 10.83 mCi of technetium-99m Tetrofosmin. This was followed by 0.4 mg Regadenoson and 30.5 mCi of technetium-99m Tetrofosmin for stress imaging. The electrocardiogram showed sinus rhythm at baseline. It did not change significantly with the Regadenoson infusion. Review of images at rest and following stress indicates a small basal inferior perfusion defect, which appears transient. Gated images show normal global left ventricular systolic function with normal regional wall motion. Left ventricular ejection fraction is calculated to be 63%. Left ventricular end diastolic volume is 86 mL. TID is absent (1.1). SDS is 7. CONCLUSIONS: 1. This study is indicative of a small amount of basal inferior ischemia. 2. Normal regional wall motion. 3. Normal global left ventricular systolic function with a calculated ejection fraction of 63%. Job ID: [id number] DocumentID: [id number] Dictated Date: 05/15/2020 15:01:04 Sales Service Executive Date: 05/15/2020 15:32:37 Dictated By: STUART SALGADO MD, MA, FACP, FACC,
== END ==
LOC: CARD 07:45
PROVIDERS: ATTEND Nurse Practitioner Family
DX: I25.10 Atherosclerotic heart disease of native coronary artery without angina pectoris (principal)
CPT/HCPCS: 78452; 93017; A9502